=== PATIENT | male | born 1950 | race Caucasian/White ===

== ENCOUNTER 2020-01-07 17:20 | Emergency (ER) | payer MEDICARE, SELFPAY ==
[2020-01-07] VITALS (8 sets, daily range): BP systolic 81–113; BP diastolic 41–60; PULSE 75–98; RESP 14–18; TEMP 36.3; O2SAT 91–99
--- NOTE | ~2020-01-07 | CT_ITS ---
CORRECTED REPORT ORDER CHANGE 01/07/2020 [facility] [place]: CT thoracic wo con DATE: 01/07/2020 18:33 INDICATION: Back pain. Fall. TECHNIQUE: Computed tomography (CT) of the thoracic spine was performed without intravenous contrast. Automated exposure control and iterative reconstruction technique were employed. The dose-length product was 1495.31 mGy-cm. COMPARISON: None FINDINGS: There is 8 degrees dextrocurvature of thoracic spine. There is an acute T12 compression fracture with less than 1/5 loss of height. There is mildly decreased disc height at multiple levels in thoracic spine. There are endplate osteophytes at all levels including bridging osteophytes from T8 to T10 and at T5-T6. There is multilevel mild facet joint osteoarthritis. There is mild neural foraminal stenosis at many levels bilaterally. On the right, there is moderate neural foraminal stenosis at T10-T11. No central canal stenosis. IMPRESSION: 1. Acute T12 compression fracture. 2. Mild thoracic spondylosis. Reviewed, dictated and finalized at location A. MTDD
--- NOTE | ~2020-01-07 | CT_ITS ---
EXAMINATION:CT chest wo con DATE: 01/07/2020 18:33 INDICATION: Shortness of breath. Back pain. Fall. TECHNIQUE: Computed tomography (CT) of the chest was performed without intravenous contrast. Automate d exposure control and iterative reconstruction technique were employed. The dose-length product (DLP ) was 489.20 mGy-cm. COMPARISON: None. FINDINGS: There is mild emphysema. There is mild atelectasis bilaterally. There is pleural thickening on the left. No pleural effusion. The heart size is normal. There are coronary artery calcifications . Pericardial calcifications are noted. No pericardial effusion. There are gallstones in the gallblad jamison, which is normal in size. There is a 15 mm cyst in left kidney. There is a 14 mm mass in left kid jessica measuring soft tissue attenuation. There are bridging endplate osteophytes at multiple levels in the spine, consistent with diffuse idiopathic skeletal hyperostosis (DISH). There is a compression fr acture of T12 with less than 1/5 loss of height. IMPRESSION: 1. Acute T12 compression fracture. 2. 14 mm left kidney mass, which may be a hemorrhagic cyst or less likely a solid neoplasm. Abdomen C T or MRI without and with contrast is recommended. 3. Calcific pericarditis. Reviewed, dictated and finalized at location A. IMPRESSION: 1. Acute T12 compression fracture. 2. 14 mm left kidney mass, which may be a hemorrhagic cyst or less likely a noy id neoplasm. Abdomen CT or MRI without and with contrast is recommended. 3. Calcific pericarditis.
--- NOTE | ~2020-01-07 | CT_ITS ---
EXAMINATION: CT brain wo con DATE: 01/07/2020 18:32 INDICATION: Headache. TECHNIQUE: Computed tomography (CT) of the head was performed without intravenous contrast. The mA wa s adjusted according to patient size. Iterative reconstruction technique was employed. The dose-lengt h product was 605.33 mGy-cm. COMPARISON: None FINDINGS: There is prominent symmetric extra-axial fluid overlying the frontal lobes bilaterally, lik ewa secondary to brain volume loss. There is no acute infarction, acute hemorrhage, or abnormal intra cranial mass lesion. There are scattered areas of low attenuation in the cerebral white matter. The v entricles are normal in size. The paranasal sinuses are clear. There are trace bilateral mastoid effu sions. The orbits are normal. IMPRESSION: 1. Mild nonspecific cerebral white matter disease, which likely represents chronic small vessel ische geno disease. Reviewed, dictated and finalized at location A. IMPRESSION: 1. Mild nonspecific cerebral white matter disease, which likely represents site damage prevention technician anna marie small vessel ischemic disease.
--- NOTE | ~2020-01-07 | CT_ITS ---
EXAMINATION: CT cervical spine wo con DATE: 01/07/2020 18:32 INDICATION: Neck pain. Fall. TECHNIQUE: Computed tomography (CT) of the cervical spine was performed without intravenous contrast. Automated exposure control and iterative reconstruction technique were employed. The dose-length pro duct was 391.56 mGy-cm. COMPARISON: None FINDINGS: There is mild emphysema. There is 7 degrees levocurvature of cervical spine. Vertebral body heights are normal. Intervertebral disc heights are normal. The following disc levels are specifical ly discussed: C2-C3: There is mild right and moderate left uncovertebral joint osteoarthritis. There is moderate ri ght and severe left facet joint osteoarthritis. There is moderate left neural foraminal stenosis. The re is no central canal stenosis. C3-C4: There is mild bilateral uncovertebral joint osteoarthritis. There is severe bilateral facet dwayne int osteoarthritis. There is mild right neural foraminal stenosis. There is no central canal stenosis . C4-C5: There is mild bilateral uncovertebral joint osteoarthritis. There is severe right and moderate left facet joint osteoarthritis. There is mild bilateral neural foraminal stenosis. There is mild ce ntral canal stenosis. C5-C6: There is mild left uncovertebral joint osteoarthritis. There is severe bilateral facet joint o steoarthritis. There is mild bilateral neural foraminal stenosis. There is mild central canal stenosi s. C6-C7: There is mild bilateral uncovertebral joint osteoarthritis. There is severe bilateral facet dwyane int osteoarthritis. There is mild left neural foraminal stenosis. There is mild central canal stenosi s. C7-T1: There is no uncovertebral joint osteoarthritis. There is severe bilateral facet joint osteoart hritis. There is mild bilateral neural foraminal stenosis. There is no central canal stenosis. IMPRESSION: 1. No fracture. 2. Mild cervical spondylosis. Reviewed, dictated and finalized at location A.
[2020-01-07] MEDS: SODIUM CHLORIDE 0.9% IV 1,000 ML 999 ML IV CONT ×3 (17:30→19:29)
--- NOTE | 2020-01-07 17:43 | ECG_ITS ---
Measurements Intervals [place] Rate: 98 P: [place]: 0 QRS: -70 QRSD: 143 T: 85 QT: 424 QTc: 542 Interpretive Statements ATRIAL FLUTTER/TACHYCARDIA LEFT AXIS DEVIATION INTRAVENTRICULAR CONDUCTION DELAY ANTERIOR INFARCT, AGE INDETERMINATE HIGH LATERAL INFARCT, AGE INDETERMINATE BASELINE ARTIFACT- II, III, V4-V6 ABNORMAL ECG Electronically Signed On 01-08-2020 7:15:26 CDT by Ray Lott D.O.
--- NOTE | 2020-01-07 17:50 | ED.WEAKNESS ---
HPI - Weakness General Chief complaint: Weakness Stated complaint: AMB Source: patient and EMS Mode of arrival: EMS Limitations: no limitations History of Present Illness HPI Narrative: This is a 69-year-old male that lives at home alone that apparently had a fall while he was outside on his lawn to pay the lawn maintenance people fell on concrete and apparently he was down for [id number] unsure of loss of consciousness, there is some neck disc no headaches currently and has upper back pain with abrasions to his left knee a patient is initially hypotensive with a blood pressure of 81/41 afebrile, with O2 sats at 91%. The patient is currently not complaining of chest pain, no shortness of breath no nausea vomiting no focal deficits, no diarrhea constipation no abdominal pain. MD Complaint: generalized weakness, lack of energy and difficulty walking Onset (ago): day(s) Duration: constant Location: generalized Migration: none Severity: moderate Severity scale (1-10): 4 Relieving factors: rest Exacerbating factors: movement Context: depression Related Data Home Medications Medication Instructions Recorded Confirmed bupropion HCl 150 mg PO BID 01/07/20 01/07/20 fluoxetine 40 mg PO DAILY 01/07/20 01/07/20 fluticasone furoate-vilanterol 1 inh INHALATION DAILY 01/07/20 01/07/20 [Breo Ellipta] furosemide 40 mg PO DAILY 01/07/20 01/07/20 hydrochlorothiazide 25 mg PO DAILY 01/07/20 01/07/20 potassium chloride 40 meq PO DAILY 01/07/20 01/07/20 tadalafil 20 mg PO DAILY PRN 01/07/20 01/07/20 umeclidinium [Incruse Ellipta] 1 inh INHALATION DAILY 01/07/20 01/07/20 Allergies Allergy/AdvReac Type Severity Reaction Status Date / Time No Known Allergies Allergy Unverified 09/12/18 11:03 Review of Systems Review of Systems: All systems reviewed & are unremarkable except as noted in HPI and below PMFSH Past Medical History Medical History (Updated 01/07/20 @ 19:03 by Jerrell Rasheed MD) CAD (coronary artery disease) COPD (chronic obstructive pulmonary disease) Depression History of CVA (cerebrovascular accident) Social History Social History Gender identity (if verbalized by the patient): Male Exam Const: General: ill appearing Orientation/consciousness: patient oriented x3 Limitations: physical limitations HENMT: Head: normal to inspection Eyes: Conjunctivae: conjunctivae normal Pupils: Equal, round and reactive pupils present Neck: Neck: normal visual inspection, no lymphadenopathy and no meningeal signs Chest: Chest palpation & inspection: normal inspection of the chest Other: midline chest scar Resp: Effort & Inspection: normal respiratory effort Cardio: Rhythm: abnormal rhythm GI: GI Palp: Yes Soft to palpation Course Vital Signs Vital signs: Vital Signs Temperature 36.3 C L 01/07/20 17:35 Pulse Rate 98 01/07/20 17:35 Respiratory Rate 14 01/07/20 17:35 Blood Pressure 81/41 L 01/07/20 17:35 Pulse Oximetry 91 01/07/20 17:35 Temperature 36.3 C L 01/07/20 17:35 Pulse Rate 98 01/07/20 17:35 Respiratory Rate 14 01/07/20 17:35 Blood Pressure 81/41 L 01/07/20 17:35 Pulse Oximetry 91 01/07/20 17:35 MDM - Weakness ECG Data EKG #1: ECG completion date: 01/07/20 ECG completion time: 17:50 Prior ECG tracings: not available for review EKG Interpretation: tachycardia and atrial fibrillation Critical Care Time Critical Care Time Critical Care Time: No Discharge Plan Discharge Clinical Impression: Acute dehydration, Acute hypokalemia Sepsis Qualifiers: Sepsis type: sepsis due to unspecified organism Sepsis acute organ dysfunction status: with acute organ dysfunction Severe sepsis acute organ dysfunction type: acute renal failure Acute renal failure type: unspecified Severe sepsis shock status: without septic shock Qualified Code(s): A41.9 - Sepsis, unspecified organis
[2020-01-07 18:11] LABS: Hematocrit 38.1 % (37.0-46.0); Hemoglobin 14.3 g/dL (12.4-15.3); Mean Corpuscular HGB Conc 37.5 g/dL (32.0-36.0); Mean Corpuscular Hemoglobin 32.4 pg (27.0-31.0); Mean Corpuscular Volume 86.2 fL (78.0-102.0); Mean Platelet Volume 8.9 fl (8.7-11.0); Platelet Count Result 357 K/mm3 (150-420); Red Blood Count 4.42 M/mm3 (4.70-6.10); Red Cell Distribution Width 12.9 % (11.6-14.4)
[2020-01-07 18:17] LABS: White Blood Count 21.6 K/mm3 (4.8-10.8)
[2020-01-07 18:32] LABS: Lactic Acid 5.4 mmol/L (0.4-2.0)
[2020-01-07 18:35] LABS: Alanine Aminotransferase 40 U/L (16-63); Albumin Level 2.7 g/dL (3.4-5.0); Alkaline Phosphatase 127 U/L (46-116); Anion Gap 9.4 mmol/L (7-16); Aspartate Amino Transferase 74 U/L (15-37); Bilirubin,Total 4.4 mg/dL (0.00-1.00); Blood Urea Nitrogen 29 mg/dL (7-18); CRP 4.1 mg/dL (0.0-0.9); Calcium 8.3 mg/dL (8.5-10.1); Carbon Dioxide 38 mmol/L (21-32); Chloride 80 mmol/L (98-108); Creatine Kinase 475 U/L (39-308); Estimated CRCL calculation 26 ml/min; Estimated Glomerular Filt Rate 26; Glucose 121 mg/dL (70-99); Magnesium 2.6 mg/dL (1.8-2.4); Osmolality Calculated 268 mOsm/kg (285-295); Sodium 126 mmol/L (136-145); Thyroid Stimulating Hormone 1.49 uIU/mL (0.36-3.74); Total Protein 6.1 g/dL (6.4-8.2)
[2020-01-07 18:40] LABS: Ethanol < 3 mg/dL (0-6); Potassium 1.4 mmol/L (3.5-5.1); Troponin I 0.06 ng/mL (0.00-0.056)
[2020-01-07] MEDS: POTASSIUM BICARBONATE 25 MEQ TABEF 50 MEQ PO (19:00)
[2020-01-07] MEDS: KCL 20 MEQ/SW 100 ML 100 ML 50 MEQ IVPB (19:00)
--- NOTE | 2020-01-07 19:41 | PC.NURSE ---
[facility]. manager of warehouse contacted.
--- NOTE | 2020-01-07 19:42 | ECG_ITS ---
Measurements Intervals [place] Rate: 81 P: [place]: 0 QRS: -67 QRSD: 130 T: 107 QT: 441 QTc: 513 Interpretive Statements ATRIAL FLUTTER/TACHYCARDIA INTRAVENTRICULAR CONDUCTION DELAY LEFT ANTERIOR FASCICULAR BLOCK HIGH LATERAL INFARCT, AGE INDETERMINATE BASELINE ARTIFACT- I, II, III, AVR, AVL, AVF, V1-V6 ABNORMAL ECG Electronically Signed On 01-08-2020 7:17:43 CDT by Ray Lott D.O.
[2020-01-07 19:48] LABS: Add Urine Microscopic? YES; Appearance Urine Clear (Clear); Bilirubin Urine Negative (Negative); Blood Urine 1+ (Negative); Color Urine Yellow (Yellow); Glucose Urine UA Negative (Negative); Ketones Urine Negative (Negative); Leukocyte Esterase Ur Negative (Negative); Nitrate Urine Negative (Negative); Protein Urine Negative (Negative)
[2020-01-07 19:53] LABS: Bacteria Urine Trace /hpf; RBC Urine 0-2 /hpf (0-2); Squamous Epithelial Cell Urine Rare /hpf (Few); WBC Urine 0-3 /hpf (0-3)
[2020-01-07 19:56] LABS: Amphetamine Screen Urine Negative (Negative); Barbiturate Screen Urine Negative (Negative); Benzodiazepines Screen Urine Negative (Negative); Cannabinoid Screen Urine Negative (Negative); Cocaine Screen Urine Negative (Negative); Methadone Screen Urine Negative (Negative); Opiate Screen Urine Negative (Negative); Phencyclidine Screen Urine Negative (Negative)
--- NOTE | 2020-01-07 20:17 | PC.NURSE ---
Dr. Rasheed speaking with Dr. Bernardo, mental measurements teacher at [place]
--- NOTE | 2020-01-07 20:28 | PC.NURSE ---
Dr. Rasheed speaking with dr patten.
[2020-01-07 20:49] LABS: INR 1.1; Partial Thromboplastin Time 26.8 SEC (22.3-31.6); Prothrombin Time 11.1 Seconds (9.64-11.0)
--- NOTE | 2020-01-07 20:50 | PC.NURSE ---
Pt to go to room ICU 2 at [facility]. Report Given to MONIQUE Philip contacted for transfer.
--- NOTE | 2020-01-07 20:59 | PC.NURSE ---
Pt asked if there was anyone we could contact for him, pt declined.
[2020-01-07 21:03] LABS: Blood Urea Nitrogen 27 mg/dL (7-18); Calcium 7.4 mg/dL (8.5-10.1); Carbon Dioxide 38 mmol/L (21-32); Chloride 84 mmol/L (98-108); Estimated CRCL calculation 30 ml/min; Estimated Glomerular Filt Rate 30; Glucose 131 mg/dL (70-99); Osmolality Calculated 271 mOsm/kg (285-295); Sodium 127 mmol/L (136-145)
[2020-01-07 21:04] LABS: Troponin I 0.08 ng/mL (0.00-0.056)
== END 2020-01-07 21:30 | disposition short-term general hospital (02) ==
PROVIDERS: Emergency Provider Emergency Medicine
DX: A41.9 Sepsis, unspecified organism (principal); N17.9 Acute kidney failure, unspecified; E86.0 Dehydration; E87.6 Hypokalemia; Z79.899 Other long term (current) drug therapy
CPT/HCPCS: 36415; 70450; 71250; 72125; 72128; 72131; 80048; 80053; 80307; 81001; 82550; 83605; 83735; 84443; 84484; 85027; 85610; 85730; 86140; 87040; 93005; 96361; 96365; 96366; 96367; 96368; 99284; 99285; A9270; J2543; J3370; J3480; J7030

== ENCOUNTER 2020-01-07 21:55 | Inpatient (IN) | payer MEDICARE, SELFPAY ==
--- NOTE | ~2020-01-07 | XR_ITS ---
EXAMINATION: XR chest 1V portable DATE: 01/11/2020 13:58 INDICATION: Shortness of breath. TECHNIQUE: A single frontal view of the chest was obtained. COMPARISON: Chest single view 01/09/2020, chest CT 01/07/2020 FINDINGS: The lung volumes are small. There are airspace and interstitial opacities throughout the melissa ngs bilaterally. No pleural effusion or pneumothorax. The heart size is normal. Median sternotomy wir es are noted. IMPRESSION: 1. Small lung volumes with worsened diffuse lung disease, consistent with pulmonary edema versus pneu monia. Reviewed, dictated and finalized at location A. IMPRESSION: 1. Small lung volumes with worsened diffuse lung disease, consistent with pulmo nary edema versus pneumonia.
--- NOTE | ~2020-01-07 | CT_ITS ---
EXAMINATION: CT brain wo con DATE: 01/10/2020 20:09 INDICATION: Hallucinations. Fall. TECHNIQUE: Computed tomography (CT) of the head was performed without intravenous contrast. The mA wa s adjusted according to patient size. Iterative reconstruction technique was employed. The dose-lengt h product was 681.00 mGy-cm. COMPARISON: Head CT 01/07/2020 FINDINGS: There are extra-axial fluid collections overlying the right frontal, temporal, and parietal lobes with greatest thickness measuring 12 mm on the right and 15 mm on the left, worsened from 8 mm and 9 mm, respectively, consistent with hygromas. There is no acute intracranial hemorrhage, acute i schemic infarct, or abnormal mass lesion. There are scattered areas of low attenuation in the cerebra l white matter. The ventricles are normal in size. The orbits are normal. The paranasal sinuses are c lear. The orbits are normal. There are trace bilateral mastoid effusions. IMPRESSION: 1. Worsened bilateral subdural hygromas. 2. Stable mild nonspecific cerebral white matter disease, which likely represents chronic small vesse l ischemic disease. Reviewed, dictated and finalized at location A. IMPRESSION: 1. Worsened bilateral subdural hygromas. 2. Stable mild nonspecific cerebral white matter disease, which likely represen ts chronic small vessel ischemic disease.
--- NOTE | ~2020-01-07 | XR_ITS ---
EXAMINATION: XR barium swallow modified DATE: 01/12/2020 13:41 INDICATION: Dysphagia. TECHNIQUE: The patient was given barium-containing material of multiple consistencies to swallow by t sharyn speech pathologist while I performed fluoroscopy. Fluoroscopy exposure time was 1.5 minutes. The n umber of fluoroscopy images saved to the PACS was 1. Dose-area product was 1.839 Gy-cm^2. FINDINGS: There was decreased tongue coordination and elevation. There is laryngeal penetration and aspiration with decreased laryngeal elevation and decreased laryngeal closure. There is vallecular and piriform sinus residue with decreased tongue base retraction. IMPRESSION: 1. Laryngeal penetration or aspiration. 2. Please refer to the speech therapy report for recommendations. Reviewed, dictated and finalized at location A.
--- NOTE | ~2020-01-07 | US_ITS ---
EXAMINATION: US venous doppler [facility] DATE: 01/11/2020 15:32 INDICATION: Shortness of breath TECHNIQUE: Rodriguez scale images without and with compression and Doppler images of the bilateral lower e xtremity veins were obtained. COMPARISON: None FINDINGS: The right common femoral vein, profunda femoral vein, femoral vein, popliteal vein, peroneal trunk, p osterior tibial veins, and greater saphenous vein are patent. The left common femoral vein, profunda femoral vein, femoral vein, popliteal vein, peroneal trunk, po sterior tibial veins, and greater saphenous vein are patent. IMPRESSION: 1. Patent bilateral lower extremity veins. No evidence of deep venous thrombosis. Reviewed, dictated and finalized at location A. IMPRESSION: 1. Patent bilateral lower extremity veins. No evidence of deep venous thrombosi s.
--- NOTE | ~2020-01-07 | US_ITS ---
EXAMINATION: US right upper quadrant DATE: 01/08/2020 10:31 INDICATION: Abnormal liver function tests. TECHNIQUE: Multiple grayscale and Doppler ultrasound images of the abdomen were obtained. COMPARISON: Chest CT 01/07/2020 FINDINGS: The visualized portions of the head and body of the pancreas are normal. There is diffuse h epatic steatosis. There is normal flow in main portal vein. There are gallstones in the gallbladder, which is normal in size. No gallbladder wall thickening or sonographic Jensen sign. The common duct i s normal and measures 4 mm. IMPRESSION: 1. Cholelithiasis. No evidence of acute cholecystitis. 2. Diffuse hepatic steatosis. Reviewed, dictated and finalized at location E.
--- NOTE | ~2020-01-07 | US_ITS ---
EXAMINATION: US renal BI DATE: 01/09/2020 11:40 INDICATION: Acute kidney injury TECHNIQUE: Multiple grayscale and Doppler ultrasound images of the kidneys were obtained. COMPARISON: None. FINDINGS: The right kidney measures 11.4 x 5.8 x 5.5 cm. The left kidney measures 10.6 x 6.4 x 5.5 cm . The kidneys demonstrate normal parenchymal echogenicity. There is no hydronephrosis. The bladder is decompressed by Bloom catheter. IMPRESSION: 1. Normal kidneys without hydronephrosis. Reviewed, dictated and finalized at location A.
--- NOTE | ~2020-01-07 | XR_ITS ---
XR chest 1V portable 01/17/2020 05:39 Indication: Follow-up infiltrates. Dyspnea. Procedure: AP portable chest Comparison: Comparison to multiple prior studies sequentially, with oldest reviewed study dated 01/07. Findings: Status post median sternotomy. Persistent patchy bilateral airspace consolidation. No pleur al effusion or pneumothorax. Impression: 1: Persistent patchy bilateral airspace consolidation which appears to wax and wane over the last few studies which may represent a combination of edema and/or pneumonia. Reviewed, dictated and finalized at location A. Impression: 1: Persistent patchy bilateral airspace consolidation which appears to wax and wane over the last few studies which may represent a combination of edema and/o r pneumonia.
--- NOTE | ~2020-01-07 | XR_ITS ---
EXAMINATION: XR chest 1V portable DATE: 01/08/2020 08:19 INDICATION: Emphysema. Cough and weakness. TECHNIQUE: frontal view of the chest was obtained. COMPARISON: Chest CT dated 01/07/2020 FINDINGS: Streaky opacities at the left lung base which on prior CT appear to correspond to atelectasis. No pul monary edema, pleural effusion or pneumothorax. Cardiomegaly. Median sternotomy wires and mediastinal surgical clips are seen, likely from prior coronary artery bypass grafting. IMPRESSION: 1. Mild left basilar atelectasis. Reviewed, dictated and finalized at location A.
--- NOTE | ~2020-01-07 | XR_ITS ---
EXAMINATION: CT abdomen pelvis wo/w con, XR abdomen/kub 1V DATE: 01/13/2020 14:55 INDICATION: Left renal mass TECHNIQUE: 1. Computed tomography (CT) of the abdomen and pelvis was performed without and with 100 mL Omnipaque -350 intravenous contrast. Automated exposure control and iterative reconstruction technique were emp loyed. The dose-length product was 1939.81 mGy-cm. 2. Supine AP view of the abdomen and pelvis was obtained. COMPARISON: Chest CT dated 01/07/2020 FINDINGS: CT: Crazy paving pattern with groundglass opacity and smooth septal line thickening in the lingula, right middle and to lesser degree bilateral lower lobes. Heart size is normal. Pericardial calcifications with flattening of the lateral wall of the left ventricle suggesting possibility of constrictive rosenda carditis. Atherosclerotic coronary artery calcifications. No pericardial effusion. Evaluation of portions of the abdomen and pelvis is mild to moderately limited by motion artifact. Se veral gallstones in the dependent aspect of the normal-appearing gallbladder. Diffuse hepatic steatos is. Spleen, pancreas and bilateral adrenal glands are normal. Multiple bilateral low-attenuation none nhancing renal cysts as well as a 1.3 cm hyperdense nonenhancing proteinaceous/hemorrhagic cyst at th e upper pole of the left kidney. Retained oral contrast material in the proximal colon, distal small bowel as well as within a small duodenal diverticulum arising from the third portion of the duodenum. 6.3 x 4.2 x 3.9 cm heterogeneous attenuation mass in the dependent aspect of the bladder. No evident mass identified in the partially decompressed bladder on prior ultrasound this could represent clot. Prostatomegaly. Small fat-containing left inguinal hernia. No free intraperitoneal gas or fluid. No pathologically en larged abdominal or pelvic lymphadenopathy. There is calcified atherosclerosis of the aorta and many of the other arteries. Fusiform ectasia of the infrarenal aorta which measures up to 3.4 cm in umesh l diameter. Again seen is a now subacute T12 compression fracture with small amount of vacuum phenome na from the T11-T12 disc space extending along the horizontal fracture plane underlying the depressed superior endplate. Moderate to severe lumbar spondylosis. KUB: As previous noted there is retained oral contrast material within the distal small bowel, proximal co yaneth and a small duodenal diverticulum in the right upper quadrant. No dilated bowel to suggest obstru ction. Excreted contrast from the immediately prior CT seen in the bilateral renal collecting systems and ureters as well as in the bladder. Large lucent central filling defect within the bladder corres ponding to the mass identified on CT. IMPRESSION: 1. Bilateral renal cysts including a 1.3 cm nonenhancing hyperdense proteinaceous/hemorrhagic cyst at the upper pole of the left kidney corresponding to the lesion of concern on prior noncontrast CT. 2. 6.3 x 4.2 x 3.9 cm heterogeneous attenuation mass in the dependent aspect of the bladder which is without evident correlate on prior ultrasound suggesting clot. Recommend repeat bladder ultrasound fo r confirmation. 3. New crazy paving pattern at the lung bases most likely related to mild pulmonary edema with differ ential including pneumonia. 4. Dense pericardial calcification with flattening of the lateral wall of the left ventricle suggesti ng possible constrictive pericarditis. 5. Subacute T12 compression fracture. Reviewed, dictated and finalized at location A. IMPRESSION: 1. Bilateral renal cysts including a 1.3 cm nonenhancing hyperdense proteinaceo us/hemorrhagic cyst at the upper pole of the left kidney corresponding to the l esion of concern on prior noncontrast CT.
--- NOTE | ~2020-01-07 | XR_ITS ---
EXAMINATION: XR abdomen NG/feed tube insert EXAM DATE: 01/19/2020 14:34 INDICATION: Feeding tube placement. TECHNIQUE: Frontal projection(s) of the abdomen for interpretation. There is no prior study for venecia victor. FINDINGS: Feeding tube tip and side-port project over left upper quadrant, gastric cardia, adequate positioning. Sternotomy wires. Mild to moderate lumbar levoscoliosis. Moderate lumbar spondylosis. No nobstructive upper abdominal bowel gas pattern. Lung bases unremarkable. IMPRESSION: Feeding tube in position. Reviewed, dictated and finalized at location B. IMPRESSION: Feeding tube in position.
--- NOTE | ~2020-01-07 | MR_ITS ---
EXAMINATION: MR brain/brain stem wo con EXAM DATE: 01/20/2020 15:59 INDICATION: Altered mental status. Shock of uncertain origin. TECHNIQUE: Magnetic resonance imaging (MRI) of the brain/brain stem obtained without contrast. Sagitt al T1, axial diffusion, gradient echo (T2*), T1, T2, FLAIR sequences obtained. Correlation is made t o head CT from 01/19/2020. FINDINGS: There is small region of restricted diffusion in the fabi shaped in the midline, with linea r AP intersecting a linear transverse signal abnormality, sequence 5 image 7, likely region of acute ischemic change, small pontine infarction. Again there are moderate size chronic bilateral subdural hygromas, which appear well accommodated due to patient's cerebral atrophy. There is mild to moderate microangiopathy. There is no acute hemorrhage seen on the T2*, a hemosiderin sensitive sequence. No intraparenchymal brain mass. The ventricles are normal in size. There are no extra-axial collections. Flow voids are seen in the cerebral arteries on the T2-weighted sequences consistent with their expected patency. O rbits are unremarkable. Soft tissue is unremarkable. IMPRESSION: 1. T-shaped pontine signal abnormality most likely acute infarction. 2. Chronic moderate-sized subdural hygromas. 3. Mild to moderate microangiopathy. Reviewed, dictated and finalized at location A.
--- NOTE | ~2020-01-07 | CT_ITS ---
EXAMINATION: CT brain wo con DATE: 01/19/2020 08:36 INDICATION: Worsening ongoing confusion. TECHNIQUE: Computed tomography (CT) of the head was performed without intravenous contrast. Sagittal and coronal reconstructions were performed. The mA was adjusted according to patient size. Iterative reconstruction technique was employed. The dose-length product was 605.33 mGy-cm. COMPARISON: head CT dated 01/12/2020 FINDINGS: No significant interval change in extra-axial low-attenuation fluid collections consistent with hygro mas overlying the bilateral frontal, temporal and parietal lobes which continues to measure approxima tely 13 mm maximal thickness on the right and 14 mm on the left. No acute intracranial hemorrhage, ac denis infarction or abnormal mass lesion. There is mild scattered white matter hypoattenuation consiste nt with chronic small vessel ischemic disease. Ventricles are normal and symmetric. Basal cisterns re main patent. Trace bilateral mastoid effusions. The orbits and paranasal sinuses are normal. Intracra nial calcified cerebral atherosclerosis is noted. IMPRESSION: 1. No interval change in bilateral subdural hygromas. No acute intracranial process. 2. Mild scattered white matter hypoattenuation consistent with chronic small vessel ischemic disease. Reviewed, dictated and finalized at location A. IMPRESSION: 1. No interval change in bilateral subdural hygromas. No acute intracranial pro cess. 2. Mild scattered white matter hypoattenuation consistent with chronic small ve ssel ischemic disease.
--- NOTE | ~2020-01-07 | XR_ITS ---
EXAMINATION: XR chest 1V portable INDICATION: Shortness of breath TECHNIQUE: Portable AP chest at 1218 hours COMPARISON: 01/11/2020 FINDINGS: Diffuse airspace opacities are present with slight improvement on the right. No pleural eff usion or pneumothorax is identified. The heart size is normal. Median sternotomy wires are consistent with prior cardiac surgery. IMPRESSION: 1. Diffuse lung disease with slight improvement on the right, consistent with pulmonary edema versus pneumonia. Reviewed, dictated and finalized at location A. IMPRESSION: 1. Diffuse lung disease with slight improvement on the right, consistent with p ulmonary edema versus pneumonia.
--- NOTE | ~2020-01-07 | XR_ITS ---
EXAMINATION: XR chest 1V portable INDICATION: Shortness of breath and weakness TECHNIQUE: Portable AP chest at 1226 hours COMPARISON: 01/17/2020 FINDINGS: The nasogastric tube is in the stomach. Lung volumes are low. Patchy bilateral airspace opa cities persist but have improved. There is no pleural effusion or pneumothorax. The cardiomediastinal silhouette is normal. Wire sternal sutures are consistent with prior cardiac surgery. IMPRESSION: 1. Persistent but improved airspace opacities, consistent with resolving pneumonia versus pulmonary e don. Reviewed, dictated and finalized at location A. IMPRESSION: 1. Persistent but improved airspace opacities, consistent with resolving pneumo isabell versus pulmonary edema.
--- NOTE | ~2020-01-07 | XR_ITS ---
EXAMINATION: XR chest 1V portable DATE: 01/09/2020 18:27 INDICATION: Shortness of breath. TECHNIQUE: A single frontal view of the chest was obtained. COMPARISON: Chest single view 01/08/2020, chest CT 01/07/2020 FINDINGS: The lung volumes are small. There is mild atelectasis at the lung bases. There are hazy air space opacities in all lung zones with an upper lung predominance. No pleural effusion or pneumothora x. The heart size is normal. Median sternotomy wires are noted. IMPRESSION: 1. Worsened diffuse lung disease, consistent with pulmonary edema versus pneumonia. 2. Mild atelectasis at the lung bases. Reviewed, dictated and finalized at location A. IMPRESSION: 1. Worsened diffuse lung disease, consistent with pulmonary edema versus pneumo isabell. 2. Mild atelectasis at the lung bases.
--- NOTE | ~2020-01-07 | XR_ITS ---
EXAMINATION: XR femur RT min 2V, XR tibia fibula RT 2V, XR forearm RT 2V, XR humerus RT DATE: 01/20/2020 15:30 INDICATION: Assess cervical reported prior shrapnel at the right upper and lower limbs prior to MRI. TECHNIQUE: 1. AP and lateral views of the right femur were obtained on overlapping proximal and distal radiograp hs. 2. AP and lateral views of the right tibia and fibula were obtained. 3. Internal and axillary rotated views of the right humerus were obtained. 4. AP and lateral views of the right forearm were obtained. COMPARISON: None FINDINGS: The right foot and digits of the right hand are excluded from the field of imaging. No radiopaque for eign bodies identified in the right upper or lower limbs. Bone alignment is normal throughout. No fra ctures. Suggestion of an old fracture deformity at the base of the right fourth proximal phalanx. No acute fractures identified. Polyarticular osteoarthritis moderate at the right acromioclavicular join t and mild at multiple additional joints throughout the right arm and leg. Prominent soft tissue swel ling and subcutaneous edema centered at the right elbow extending from the mid upper arm to the midfo rearm. Atherosclerotic calcifications along the femoral artery extending into the arteries at the rig ht calf. IMPRESSION: 1. No radiopaque foreign bodies in the visualized right upper lower limbs. Reviewed, dictated and finalized at location A. IMPRESSION: 1. No radiopaque foreign bodies in the visualized right upper lower limbs. IMPRESSION: 1. No radiopaque foreign bodies in the visualized right upper lower limbs. IMPRESSION: 1. No radiopaque foreign bodies in the visualized right upper lower limbs.
--- NOTE | ~2020-01-07 | CT_ITS ---
EXAMINATION: CT brain wo con DATE: 01/12/2020 16:34 INDICATION: Enlarging hygroma is TECHNIQUE: Computed tomography (CT) of the head was performed without intravenous contrast. Sagittal and coronal reconstructions were performed. The mA was adjusted according to patient size. Iterative reconstruction technique was employed. The dose-length product was 1210.67 mGy-cm. COMPARISON: head CT dated 01/10/2020 FINDINGS: No significant interval change in extra-axial low-attenuation fluid collections consistent with hygro mas overlying the bilateral frontal, temporal and parietal lobes which continues to measure approxima tely 12-13 mm maximal thickness on the right and 14-15 mm on the left. No acute intracranial hemorrha ge, acute infarction or abnormal mass lesion. There is mild scattered white matter hypoattenuation co nsistent with chronic small vessel ischemic disease. Ventricles are normal and symmetric. Trace bilat eral mastoid effusions. The orbits and paranasal sinuses are normal. Intracranial calcified cerebral atherosclerosis is noted. IMPRESSION: 1. No interval change in bilateral subdural hygromas. No acute intracranial process. 2. Mild scattered white matter hypoattenuation consistent with chronic small vessel ischemic disease. Reviewed, dictated and finalized at location A. IMPRESSION: 1. No interval change in bilateral subdural hygromas. No acute intracranial pro cess. 2. Mild scattered white matter hypoattenuation consistent with chronic small ve ssel ischemic disease.
--- NOTE | 2020-01-07 21:20 | PM.IMHP ---
H&P: HPI History of Present Illness Chief complaint: Fall unable to get up Narrative: Date and time of patient contact: 01/07/2020 at 10:10 p.m. Daniel Lopez is a 69 year old male with a past medical history of CVA, hypertension, and COPD who presented to [facility] via EMS after having a fall. The patient was walking out to pay his lawn care provider when he fell. He was unable to get up. When the patient arrived at [facility] he was hypotensive with a blood pressure of 81/41. He also had a white count of 21,000 and profound hypokalemia. He received greater than 30 mL/kg in fluid bolus at the outside ER with improvement in blood pressures up to 103/59. He reports that he has been feeling lightheaded with standing up for at least a couple of weeks. He denies any visual changes, headache, or confusion. He has had several falls and has multiple bruises in multiple stages of healing. He has hit his head at least once with his multiple falls and has multiple shallow abrasions to his forehead. He denies any chest pain, shortness of breath, cough, congestion, fevers or chills. He is noted to be wheezing and he states that he is smoking a pack of cigarettes per day. He denies any recent ill contacts. He denies any nausea, vomiting or diarrhea. He denies any dysuria and only complains that he wants the Bloom catheter removed. He states that he had been having some lower extremity edema but it looks like he was started on Lasix back in October and he has not had any edema since that time. He was started on potassium as well. He states that he has been chewing his potassium tablets because they are too big to swallow. The physician from [facility] stated that the patient had multiple full bottles of potassium supplements that were full and it did not seem that the patient had been taking them. The patient denies any chest pain or palpitations. His EKG at the outside facility did demonstrate evidence of septal and lateral myocardial infarction and QT prolongation with a QTC of 542 and 513 on sequential EKGs. His EKG also demonstrated atrial fibrillation which was a new finding. The patient is aware that he is at [facility] and he is quite upset that he was transferred here. He stated that he requested to go to [facility] in [place] where he sees his primary care provider. The patient's ex- had called our facility requesting to talk to the patient and demanding to know how the patient ended up at our facility because she did not ?give permission for him to be transferred.? However, when nursing staff asked the patient if he wanted to talk to his ex- he was adamant that he did not want to talk to her and that she was not to have any medical information. He stated he never gave permission for the outside facility to share his medical information with his ex-. He evidently his shortly after his stroke in August of 2018. They were only for less than a year prior to separation/divorce. He states that his nephew Perry Aviles is to be his surrogate decision maker. He stated he was okay with his niece also receiving updates on his medical condition. The patient does not know the phone numbers for his niece or nephew. Review of Systems Review of Systems: Narrative: 12 systems were reviewed with pertinent positives and negatives per HPI. Except as documented in the HPI, all other systems were reviewed and are negative. The patient is only a fair historian and states that he does not ?keep track of those things? when he is asked about past medical history and review of systems. [facility] Past Medical History Medical History (Updated 01/08/20 @ 00:00 by Background Daemon) Alcoholism /alcohol abuse With prior H&P documenting 10 beers a day. CAD (coronary artery disease) COPD (chronic obstructive pulmonary disease) Depression Diastolic heart failure Essential hypertension H
[2020-01-07 22:04] VITALS: PULSE 73
[2020-01-07 22:14] VITALS: BMI 25.8
[2020-01-07] MEDS: POTASSIUM CHLORIDE 20 MEQ PACKET (FOR LIQUID) 80 MEQ PO (22:43)
[2020-01-07] MEDS: THIAMINE HCL 200 MG/2 ML VIAL 100 MG IV PUSH (22:47)
[2020-01-07] MEDS: SODIUM CHLORIDE 0.9% IV 1,000 ML 150 ML IV CONT (22:49)
[2020-01-07] MEDS: ACETAMINOPHEN 325 MG TABLET 650 MG PO (22:56)
[2020-01-08] VITALS (19 sets, daily range): BP systolic 83–113; BP diastolic 54–75; PULSE 65–91; RESP 14–23; TEMP 35.6–36.7; O2SAT 94–98
[2020-01-08 00:22] LABS: D Dimer 8.15 ug/mL (<0.48)
[2020-01-08 00:35] LABS: Lactic Acid Reflex 1.5 mmol/L (0.7-2.1)
[2020-01-08 00:40] LABS: Lactate Dehydrogenase 776 U/L (313-618)
--- NOTE | 2020-01-08 00:58 | ADMIMU ---
This patient, Daniel Lopez, was admitted to ICU status, and placed in Intensive Care Unit-2 at 2150 01/07/20. Patient/family oriented to hospital policies and general routines including ID bracelet, bed and alarms, visiting hours, pain management, procedures, bathroom and other care routines, personal items, smoking policy, room service/diet, and visiting hours. Valuables list has been completed. Information on how to activate the Rapid Response Team has been discussed. Patient/Family are encouraged to report perceived risks to care and to ask questions if they do not understand what they are told or what they should do.
--- NOTE | 2020-01-08 00:58 | PC.NURSE ---
Patient does not want Brittny to have information. He requests his nephew be his contact manager. Renzo Wilde called for phone number of nephew and message left to please call back with number. Renzo Wilde's number is [phone].
[2020-01-08 01:01] LABS: Ethanol < 10 mg/dL (<10)
[2020-01-08 01:33] LABS: Hepatitis B Surface Antigen Negative (Negative)
[2020-01-08 01:38] LABS: HAV RESULT Negative (Negative); Hepatitis B Core IgM Result Negative (Negative)
[2020-01-08 01:50] LABS: Hepatitis C Virus Antibody Negative (Negative)
--- NOTE | 2020-01-08 03:01 | ECG_ITS ---
Measurements Intervals [place] Rate: 66 P: 21 CA: 294 QRS: -64 QRSD: 135 T: 124 QT: 413 QTc: 436 Interpretive Statements ATRIAL FLUTTER/TACHYCARDIA INTRAVENTRICULAR CONDUCTION DELAY LEFT ANTERIOR FASCICULAR BLOCK HIGH LATERAL INFARCT, AGE INDETERMINATE BORDERLINE T WAVE ABNORMALITY- ANTEROLATERAL LEADS BASELINE ARTIFACT- I, II, III, AVR, AVL, AVF, V1-V6 ABNORMAL ECG Electronically Signed On 01-08-2020 10:20:43 CDT by Ray Lott D.O.
[2020-01-08 04:05] LABS: Basophils Percent Auto 0.2 % (0.2-1.2); Eosinophils Absolute Auto 0.1 K/mm3 (0-0.3); Eosinophils Percent Auto 0.4 % (0-4.4); Hematocrit 35.5 % (42.0-52.0); Immature Granulocyte Absolute 0.13 K/mm3 (0.00-0.031); Immature Granulocyte Percent A 0.7 % (0-0.5); Lymphocytes Absolute Auto 1.84 K/mm3 (0.9-3.2); Lymphocytes Percent Auto 10.5 % (18.3-44.2); Mean Corpuscular HGB Conc 36.6 g/dl (32-36); Mean Corpuscular Hemoglobin 32.7 pg (26-34); Mean Corpuscular Volume 89.2 fl (80-100); Mean Platelet Volume 9.1 fl (7.4-10.4); Monocytes Absolute Auto 1.6 K/mm3 (0.1-0.6); Monocytes Percent Auto 9.2 % (2.6-8.5); Neutrophils Absolute Auto 13.9 K/mm3 (1.3-6.7); Platelet Count Result 296 k/mm3 (150-375); Red Blood Count 3.98 M/mm3 (4.6-6.20); Red Cell Distribution Width 13.2 % (11.5-14.5); White Blood Count 17.6 K/mm3 (4.5-10.0)
[2020-01-08 04:16] LABS: Creatine Kinase 300 U/L (55-170)
[2020-01-08 04:20] LABS: Alanine Aminotransferase 30 U/L (4-50); Albumin Level 2.7 g/dL (3.5-5.1); Alkaline Phosphatase 107 U/L (38-126); Aspartate Amino Transferase 65 U/L (17-59); Bilirubin,Total 3.9 mg/dL (0.2-1.3); Blood Urea Nitrogen 28 mg/dL (9-20); Calcium 7.4 mg/dL (8.4-10.2); Carbon Dioxide 39 mmol/L (22-30); Chloride 82 mmol/L (98-107); Estimated CRCL calculation 37 ml/min; Estimated Glomerular Filt Rate 40; Glucose 96 mg/dL (75-110); Magnesium 2.5 mg/dL (1.6-2.3); Phosphorus 3.4 mg/dL (2.5-4.5); Potassium 2.3 mmol/L (3.4-5.0); Sodium 125 mmol/L (137-145)
[2020-01-08] MEDS: POTASSIUM CHLORIDE 20 MEQ PACKET (FOR LIQUID) 80 MEQ PO (05:36)
[2020-01-08] MEDS: ACETAMINOPHEN 325 MG TABLET 650 MG PO ×3 (05:39→20:05)
--- NOTE | 2020-01-08 06:10 | PC.NURSE ---
Renzo Wilde returned call and she has POA of patient. She will contact case management this AM for email paperwork. Updated per pt care.
[2020-01-08] MEDS: SODIUM CHLORIDE 0.9% IV 500 ML IV CONT (06:27)
[2020-01-08] MEDS: SODIUM CHLORIDE 0.9% IV 1,000 ML 150 ML IV CONT ×2 (07:39→15:39)
[2020-01-08] MEDS: ALBUTEROL SULFATE (*SP) AEROSOL 1 PUFF 6 PUFF INHALATION ×4 (08:38→19:28)
--- NOTE | 2020-01-08 09:25 | WPDCNINT ---
Assessment and Plan Assessment and plan (1) Hypotension: Qualifiers: Hypotension type: unspecified hypotension type Qualified Code(s): I95.9 - Hypotension, unspecified Code(s): I95.9 - Hypotension, unspecified Status: Acute Assessment and Plan: Hypotension likely related to hypovolemia from over-diuresis, dehydration -patient be given additional IV fluids as chest x-ray is clear - patient was on the floor for 45 minutes with no loss of consciousness before he could get up. Could have aspirated, will start sentences WBC count is 17,000. -UA is clean -will continue telemetry monitoring (2) Hypokalemia: Code(s): E87.6 - Hypokalemia Status: Acute Assessment and Plan: Hypokalemia with potassium of 1.4 admission -patient has been aggressively -last potassium of 2.3 this morning, has been given additional potassium supplements, will recheck BMP later this morning (3) Elevated bilirubin: Code(s): R17 - Unspecified jaundice Status: Acute Assessment and Plan: Hepatitis panel is negative -patient has a history of alcoholism -will check right upper quadrant ultrasound (4) COPD (chronic obstructive pulmonary disease): Code(s): J44.9 - Chronic obstructive pulmonary disease, unspecified Status: Acute Assessment and Plan: Patient history of COPD, currently wheezing -continue bronchodilators -will give a dose of Solu-Medrol (5) CORA (acute kidney injury): Code(s): N17.9 - Acute kidney failure, unspecified Status: Acute Assessment and Plan: Patient with acute kidney injury likely related to diuresis, some rhabdomyolysis as he was on the floor for 45+ minutes after fall -patient continues to be hydrated, will give additional IV fluid bolus this morning -creatinine trending down -continue to monitor renal function, electrolytes and urine output (6) Suspected 2019 novel coronavirus infection: Code(s): Z20.828 - Contact with and (suspected) exposure to other viral communicable diseases Status: Acute Assessment and Plan: SARS-CoV-2 PCR obtained and pending -patient placed on droplet, airborne and contact isolation -inflammatory markers elevated, continue to monitor (7) Hyponatremia: Code(s): E87.1 - Hypo-osmolality and hyponatremia Status: Acute Assessment and Plan: Likely related to diuresis (HCTZ and Lasix use) -patient on normal saline maintenance IV fluids -continue to monitor sodium levels (8) DVT prophylaxis: Code(s): Z29.9 - Encounter for prophylactic measures, unspecified Status: Acute Assessment and Plan: Subcu Lovenox Additional Plan Discussed with patient updated with his condition and plan of care. Code status: Full code Critical care time spent: 43 minutes Due to a high probability of clinically significant, life threatening deterioration, the patient required my highest level of preparedness to intervene emergently and I personally spent this critical care time directly and personally managing the patient. This critical care time included obtaining a history; examining the patient; pulse oximetry; ordering and review of studies; arranging urgent treatment with development of a management plan; evaluation of patient's response to treatment; frequent reassessment; and discussions with other providers. It was exclusive of separately billable procedures and treating other patients and teaching time. Please see Assessment and Plan section and the rest of the note for further information on patient assessment and treatment Mixer Operator Tablets Consult Note Consult date: 01/08/20 Time Seen: 06:57 Reason for consult: Fall, hypotension, rule out COVID-19 HPI: Daniel Lopez is a 69 year old male past medical history of CVA, essential hypertension, COPD, tobacco abuse, recovering alcoholic Presented To [facility] in [facility] after having a fall. According the p
[2020-01-08 09:44] LABS: Blood Urea Nitrogen 25 mg/dL (9-20); Carbon Dioxide 33 mmol/L (22-30); Chloride 89 mmol/L (98-107); Estimated CRCL calculation 45 ml/min; Estimated Glomerular Filt Rate 50; Glucose 117 mg/dL (75-110); Potassium 2.5 mmol/L (3.4-5.0); Sodium 126 mmol/L (137-145)
[2020-01-08] MEDS: LACTATED RINGERS 500 ML 999 ML IV CONT (10:00)
[2020-01-08] MEDS: ENOXAPARIN 30 MG/0.3 ML SYRINGE SUB-Q (10:17)
[2020-01-08] MEDS: methylPREDNISolone SOD SUCC 125 MG VIAL IV PUSH (11:22)
--- NOTE | 2020-01-08 11:50 | PM.IMPN ---
Progress Note: A&P Assessment and Plan (1) Septic shock: Code(s): A41.9 - Sepsis, unspecified organism; R65.21 - Severe sepsis with septic shock Status: Acute Assessment and Plan: Patient with either septic shock versus hypovolemia. Lactic acid 5.4 but better today. Patient responded to IV fluid boluses. BP still soft but better and renal function improved to suggest that he is hypovolemic. Agree with Zosyn for now until culture results are know. No other clear source of infection. (2) Acute renal failure: Qualifiers: Acute renal failure type: unspecified Qualified Code(s): N17.9 - Acute kidney failure, unspecified Code(s): N17.9 - Acute kidney failure, unspecified Status: Inactive Assessment and Plan: Cr 2.5 that has improved to 1.4 today. Cr normal one year ago. Good UOP. Continue hydration. Avoid nephrotoxic medications. (3) Acute hypokalemia: Code(s): E87.6 - Hypokalemia Status: Inactive Assessment and Plan: Potassium 1.4 on admission and has received IV and oral replacement. He remains in the 2 range but slowly improving. Mag level high. Probably related to Lasix and HCTZ as well as noncompliance with treatment. The patient was evidently prescribed potassium chloride supplements as outpatient but did not take them as the pills were too large. Contineu to monitor and replace as needed. (4) Hyponatremia: Code(s): E87.1 - Hypo-osmolality and hyponatremia Status: Acute Assessment and Plan: Na 126 on admission and has not much changed despite rehydration. Initally felt related to dehydration from HCTZ and Lasix. TSH normal. No cortisol level so will add (though less likely). Will check urine studies. (5) T12 compression fracture: Code(s): S22.080A - Wedge compression fracture of T11-T12 vertebra, initial encounter for closed fracture Status: Acute Assessment and Plan: Imaging showing an acute T12 compression fracture. Probably related to one of his many falls. Will need back brace, PT/OT. (6) Elevated bilirubin: Code(s): R17 - Unspecified jaundice Status: Acute Assessment and Plan: TB 4.4 but better on recheck at 3.9 today. RUQ US showing hepatic steatosis and cholelithiasis. Hepatitis panel negative. Will repeat Bili and fractionate. Doubt cholangitis given no dilated ducts or stones by US or CT scan. (7) COPD (chronic obstructive pulmonary disease): Code(s): J44.9 - Chronic obstructive pulmonary disease, unspecified Status: Acute Assessment and Plan: Warren continues to smoke. He uses Breo and Incruse at home. Continue Symbicort and Albuterol here. (8) Suspected 2019 novel coronavirus infection: Code(s): Z20.828 - Contact with and (suspected) exposure to other viral communicable diseases Status: Acute Assessment and Plan: COVID negative. Discussed with junior net developer. His markers and clincial picture consistent with COVID so will repeat the COVID test. (9) Falls frequently: Code(s): R29.6 - Repeated falls Status: Acute Assessment and Plan: Etiology unclear but multiple bruising noted to indicate multiple traumatic falls. PT/OT when able (10) Alcoholism /alcohol abuse: Code(s): F10.20 - Alcohol dependence, uncomplicated Status: Acute Assessment and Plan: The patient quit drinking alcohol about a year ago. Continue CIWA protocol. Will start Thiamine and Folate. (11) Tobacco abuse: Code(s): Z72.0 - Tobacco use Status: Acute Assessment and Plan: Will discuss benefits of smoking cessation at a later date. (12) Renal mass: Code(s): N28.89 - Other specified disorders of kidney and ureter Status: Acute Assessment and Plan: CT scan showing 14 mm left kidney mass, which may be a hemorrhagic cyst or less likely a solid
[2020-01-08 11:58] LABS: Blood Urea Nitrogen 24 mg/dL (9-20); Calcium 7.4 mg/dL (8.4-10.2); Carbon Dioxide 36 mmol/L (22-30); Chloride 88 mmol/L (98-107); Estimated CRCL calculation 45 ml/min; Estimated Glomerular Filt Rate 50; Glucose 115 mg/dL (75-110); Potassium 2.3 mmol/L (3.4-5.0); Sodium 127 mmol/L (137-145)
[2020-01-08 13:03] LABS: SARS-CoV-2 RNA PCR Negative
[2020-01-08] MEDS: MAGNESIUM SULF 2 GM/WATER 50ML 2 GM/50 ML BAG IVPB (13:08)
[2020-01-08] MEDS: POTASSIUM CHLORIDE 20 MEQ TABLET 40 MEQ PO ×2 (13:09→19:54)
[2020-01-08] MEDS: THIAMINE HCL 200 MG/2 ML VIAL 100 MG IV PUSH (13:25)
[2020-01-08] MEDS: FOLIC ACID 1 MG/0.2 ML INJ IV PUSH (13:25)
[2020-01-08] MEDS: hetaSTARCH 6%/NACL 500 ML 250 ML IV CONT (15:39)
[2020-01-08 18:50] LABS: Blood Urea Nitrogen 24 mg/dL (9-20); Calcium 6.9 mg/dL (8.4-10.2); Carbon Dioxide 28 mmol/L (22-30); Chloride 89 mmol/L (98-107); Estimated CRCL calculation 42 ml/min; Estimated Glomerular Filt Rate 46; Glucose 276 mg/dL (75-110); Magnesium 2.5 mg/dL (1.6-2.3); Phosphorus 1.3 mg/dL (2.5-4.5); Potassium 2.7 mmol/L (3.4-5.0); Sodium 125 mmol/L (137-145)
[2020-01-08 19:02] LABS: Troponin I 0.047 ng/mL (0.000-0.034)
[2020-01-08] MEDS: POTASSIUM CHLORIDE 20 MEQ PACKET (FOR LIQUID) 40 MEQ PO (22:14)
[2020-01-08] MEDS: POTASSIUM PHOS,M-BASIC-D-BASIC 20 MMOL in SODIUM CHLORIDE 0.9% IV 250 ML 64 MMOL IVPB (22:14)
[2020-01-08 23:45] LABS: Creatinine Urine 45.8 mg/dL
[2020-01-09] VITALS (25 sets, daily range): BP systolic 92–126; BP diastolic 52–86; PULSE 70–111; RESP 15–29; TEMP 35.9–36.8; O2SAT 86–97
--- NOTE | 2020-01-09 | ECHO_ITS ---
Patient Info Name: Daniel Lopez Age: 69 years : 1950 Gender: Male Ht: 70 in Wt: 182 lbs BSA: 2.03 m2 HR: 72 bpm BP: 119 / 72 mmHg Heart Rhythm: Indeterminant Technical Quality: Good Exam Date: 01/09/2020 2:06 PM Exam Location: [facility] Room: ICU 2 Patient Status: Inpatient Admit Date: 01/07/2020 Staff Ordering Physician: Zain Mejia MD Crossing Supervisor: Brianne Valentine RDCS Attending Provider: Zain Mejia MD Exam Type: CA echo doppler color flow Study Info Indications - aflutter chf Complete two-dimensional, color flow and Doppler transthoracic echocardiogram is performed. Summary 1. Left ventricular chamber dimension is normal. 2. Left ventricular systolic function is normal, estimated at 65-70%. 3. There is mildly increased left ventricular wall thickness. 4. Left ventricular septal wall motion is normal. 5. The left ventricular diastolic function is abnormal. 6. Left atrial chamber dimension is mildly enlarged. 7. Right atrial chamber dimension is mildly enlarged. 8. There is mild mitral valve regurgitation. 9. There is mild tricuspid valve regurgitation. 10. Mild pulmonary hypertension, estimated pulmonary arterial systolic pressure is 36 mmHg. Left Ventricle Left ventricular chamber dimension is normal. Left ventricular systolic function is normal, estimated at 65-70%. There is mildly increased left ventricular wall thickness. Left ventricular septal wall motion is normal. The left ventricular diastolic function is abnormal. Right Ventricle Right ventricular chamber dimension is normal. Right ventricular systolic function is normal. Left Atria Left atrial chamber dimension is mildly enlarged. Right Atria Right atrial chamber dimension is mildly enlarged. Atrial Septum Intact interatrial septum visualized by color flow imaging. Aortic Valve The aortic valve is trileaflet. There is mild aortic valve sclerosis. There is no aortic valve stenosis. There is trace aortic valve regurgitation. Pulmonic Valve The pulmonic valve is normal. There is no pulmonic valve stenosis. There is trace pulmonic regurgitation. Mitral Valve The mitral valve has normal leaflets. There is no mitral valve stenosis. There is mild mitral valve regurgitation. Tricuspid Valve The tricuspid valve leaflets are normal. There is no significant tricuspid valve stenosis. There is mild tricuspid valve regurgitation. Mild pulmonary hypertension, estimated pulmonary arterial systolic pressure is 36 mmHg. Pericardium/Pleural The pericardium appears normal. There is no pericardial effusion. Inferior Vena Cava Normal inferior vena cava with >50% collapse upon inspiration consistent with normal right atrial pressure, 10 mmHg. Aorta The aortic root size at the sinus of Valsalva is normal. The prox ascending aorta size is normal. Left Ventricular Outflow Tract Name Value Normal LVOT 2D LVOT Diameter 2.1 cm LVOT Doppler LVOT Peak Gradient 6 mmHg LVOT Mean Gradient 4 mmHg LVOT VTI
[2020-01-09 00:01] LABS: Sodium Urine Random 13 meq/L
[2020-01-09] MEDS: CALCIUM CARBONATE (TUMS) 500 MG (200 MG ELEMENTAL) PO (01:04)
[2020-01-09] MEDS: SODIUM CHLORIDE 0.9% IV 1,000 ML 150 ML IV CONT (04:43)
[2020-01-09 05:19] LABS: Basophils Percent Auto 0.1 % (0.2-1.2); Hematocrit 31.2 % (42.0-52.0); Hemoglobin 11.1 g/dL (14.0-18.0); Immature Granulocyte Absolute 0.29 K/mm3 (0.00-0.031); Immature Granulocyte Percent A 1.1 % (0-0.5); Immature Platelet Fraction Pct 1.6 % (0.9-11.2); Lymphocytes Absolute Auto 0.61 K/mm3 (0.9-3.2); Lymphocytes Percent Auto 2.3 % (18.3-44.2); Mean Corpuscular HGB Conc 35.6 g/dl (32-36); Mean Corpuscular Hemoglobin 32.7 pg (26-34); Mean Platelet Volume 10.5 fl (7.4-10.4); Monocytes Absolute Auto 1.2 K/mm3 (0.1-0.6); Monocytes Percent Auto 4.6 % (2.6-8.5); Neutrophils Absolute Auto 24.6 K/mm3 (1.3-6.7); Neutrophils Percent Auto 91.9 % (45.5-73.1); Platelet Count Result 243 k/mm3 (150-375); Red Blood Count 3.39 M/mm3 (4.6-6.20); Red Cell Distribution Width 13.5 % (11.5-14.5); White Blood Count 26.8 K/mm3 (4.5-10.0)
[2020-01-09 05:25] LABS: Lactic Acid 1.6 mmol/L (0.7-2.1)
[2020-01-09 05:41] LABS: Alanine Aminotransferase 25 U/L (4-50); Albumin Level 2.3 g/dL (3.5-5.1); Alkaline Phosphatase 108 U/L (38-126); Aspartate Amino Transferase 46 U/L (17-59); Bilirubin,Total 1.7 mg/dL (0.2-1.3); Blood Urea Nitrogen 24 mg/dL (9-20); Calcium 7.1 mg/dL (8.4-10.2); Carbon Dioxide 26 mmol/L (22-30); Chloride 95 mmol/L (98-107); Estimated CRCL calculation 48 ml/min; Estimated Glomerular Filt Rate 54; Glucose 132 mg/dL (75-110); Phosphorus 2.3 mg/dL (2.5-4.5); Potassium 3.4 mmol/L (3.4-5.0); Sodium 127 mmol/L (137-145)
[2020-01-09 05:59] LABS: Cortisol Random 8.01 ug/dL
[2020-01-09 06:12] LABS: Thyroid Stimulating Hormone 0.628 uIU/mL (0.465-4.680)
[2020-01-09] MEDS: ALBUTEROL SULFATE (*SP) AEROSOL 1 PUFF 6 PUFF INHALATION ×4 (07:58→20:19)
--- NOTE | 2020-01-09 08:16 | PM.IMPN ---
Progress Note: A&P Assessment and Plan (1) Septic shock: Code(s): A41.9 - Sepsis, unspecified organism; R65.21 - Severe sepsis with septic shock Status: Acute Assessment and Plan: Patient with either septic shock versus hypovolemia. Lactic acid 5.4 but normal today. Patient responded to IV fluid boluses. BP soft overnight at times but better overall. Renal function improving to suggest that he is hypovolemic. Will continue with Zosyn for now. Repeat COVID pending. No other clear source of infection. (2) Acute renal failure: Qualifiers: Acute renal failure type: unspecified Qualified Code(s): N17.9 - Acute kidney failure, unspecified Code(s): N17.9 - Acute kidney failure, unspecified Status: Inactive Assessment and Plan: Cr 2.5 that has improved to 1.3 today. Cr normal one year ago. Good UOP. Continue hydration. Avoid nephrotoxic medications. (3) Leukocytosis: Code(s): D72.829 - Elevated white blood cell count, unspecified Status: Acute Assessment and Plan: WBC climbed to 21.6K on 01/07/20 but trending down yesterday. WBC up back up to 26.8K today but no fevers and pateint clinically improving. Suspect more elevated WBC related to the steroids. Will continue to follow for now. BCx NGTD. (4) Acute hypokalemia: Code(s): E87.6 - Hypokalemia Status: Inactive Assessment and Plan: Potassium 1.4 on admission and has received IV and oral replacement. Mag level high. Probably related to Lasix and HCTZ as well as noncompliance with oral potassium treatment. The patient was evidently prescribed potassium chloride supplements as outpatient but did not take them as the pills were too large. Potassium normal today. Will given K+Phos today. Continue to monitor and replace as needed. (5) COPD (chronic obstructive pulmonary disease): Code(s): J44.9 - Chronic obstructive pulmonary disease, unspecified Status: Acute Assessment and Plan: Patient wheezing today. He continues to smoke. He uses Breo and Incruse at home. He was given Solu-Medrol once yesterday. Continue Symbicort and Albuterol here. Consider Prednisone if persisent wheezing. (6) Hyponatremia: Code(s): E87.1 - Hypo-osmolality and hyponatremia Status: Acute Assessment and Plan: Na 126 on admission and has not much changed despite rehydration. Initally felt related to dehydration from HCTZ and Lasix. TSH and cortisol normal. Krupa 13 with FENa on 0.3%. Will continue NS for one more day. (7) T12 compression fracture: Code(s): S22.080A - Wedge compression fracture of T11-T12 vertebra, initial encounter for closed fracture Status: Acute Assessment and Plan: Imaging showing an acute T12 compression fracture. Probably related to one of his many falls. Will need back brace, PT/OT. Back brace ordered. Start PT and OT. (8) Elevated bilirubin: Code(s): R17 - Unspecified jaundice Status: Acute Assessment and Plan: TB 4.4 but better on recheck at 1.7 today with IB 1.0. RUQ US showing hepatic steatosis and cholelithiasis. Hepatitis panel negative. Doubt cholangitis given no dilated ducts or stones by US or CT scan. Possibly Gilbert's vs cholestasis. (9) Suspected 2019 novel coronavirus infection: Code(s): Z20.828 - Contact with and (suspected) exposure to other viral communicable diseases Status: Acute Assessment and Plan: COVID negative. Discussed with marketing analytics manager. His markers and clincial picture consistent with COVID so COVID test was repeated. Repeat COVID test pending. (10) History of CVA (cerebrovascular accident): Code(s): Z86.73 - Personal history of transient ischemic attack (TIA), and cerebral infarction without residual deficits Status: Acute (11) Falls frequently: Code(s): R29.6 - Repeated falls Status: Acute
--- NOTE | 2020-01-09 08:24 | WPDINTPN ---
Progress Note: A&P Assessment and Plan (1) Hypotension: Qualifiers: Hypotension type: unspecified hypotension type Qualified Code(s): I95.9 - Hypotension, unspecified Code(s): I95.9 - Hypotension, unspecified Status: Acute Assessment and Plan: Blood pressure is much improved, a Hypotension likely related to hypovolemia from over-diuresis, dehydration -will decrease maintenance IV fluids - patient was on the floor for 45 minutes with no loss of consciousness before he could get up. Could have aspirated, will start sentences WBC count is 26.8 -UA is clean -will continue telemetry monitoring (2) Hypokalemia: Code(s): E87.6 - Hypokalemia Status: Acute Assessment and Plan: Hypokalemia with potassium of 1.4 admission -patient has been aggressively -last potassium of 3.4, phosphorus is 2.3. K Phos ordered (3) Elevated bilirubin: Code(s): R17 - Unspecified jaundice Status: Acute Assessment and Plan: Hepatitis panel is negative.. -patient has a history of alcoholism -right upper quadrant ultrasound showed diffuse hepatic steatosis, cholelithiasis but no evidence of acute cholecystitis (4) COPD (chronic obstructive pulmonary disease): Code(s): J44.9 - Chronic obstructive pulmonary disease, unspecified Status: Acute Assessment and Plan: Patient history of COPD, no wheezing noted -continue bronchodilators -leukocytosis could be related to Solu-Medrol given on 01/08/2020 (5) CORA (acute kidney injury): Code(s): N17.9 - Acute kidney failure, unspecified Status: Acute Assessment and Plan: Patient with acute kidney injury likely related to diuresis, some rhabdomyolysis as he was on the floor for 45+ minutes after fall -patient continues to be hydrated, -creatinine trending down -continue to monitor renal function, electrolytes and urine output (6) Suspected 2019 novel coronavirus infection: Code(s): Z20.828 - Contact with and (suspected) exposure to other viral communicable diseases Status: Acute Assessment and Plan: SARS-CoV-2 PCR x1 is negative -patient placed on droplet, airborne and contact isolation -given his inflammatory markers are elevated, SARS-CoV-2 PCR was repeated and is pending (7) Hyponatremia: Code(s): E87.1 - Hypo-osmolality and hyponatremia Status: Acute Assessment and Plan: Likely related to diuresis (HCTZ and Lasix use) -patient on normal saline maintenance IV fluids -continue to monitor sodium levels (8) DVT prophylaxis: Code(s): Z29.9 - Encounter for prophylactic measures, unspecified Status: Acute Assessment and Plan: Subcu Lovenox Additional Plan Discussed with patient updated with his condition and plan of care. Code status: Full code Critical care time spent: 32 minutes D/w Dr Mejia, [place] after COVID-19 is ruled out Due to a high probability of clinically significant, life threatening deterioration, the patient required my highest level of preparedness to intervene emergently and I personally spent this critical care time directly and personally managing the patient. This critical care time included obtaining a history; examining the patient; pulse oximetry; ordering and review of studies; arranging urgent treatment with development of a management plan; evaluation of patient's response to treatment; frequent reassessment; and discussions with other providers. It was exclusive of separately billable procedures and treating other patients and teaching time. Please see Assessment and Plan section and the rest of the note for further information on patient assessment and treatment Subjective Date/time seen: 01/09/20 08:24 Reason for consult: Fall, hypotension, rule out COVID-19 01/09/2020: Patient seen examined this morning. Is awake, alert, oriented x2, he could not tell me the year. Patient denies any shortness of breath, chest pain
--- NOTE | 2020-01-09 08:59 | PCPTNOTE ---
PT/OT orders received...per department policy, patient will be seen when his test returns, and it is determined that he is either positive/negative for Covid 19...will see when appropriate
[2020-01-09] MEDS: POTASSIUM PHOS/SODIUM PHOS 250 MG TABLET PO (09:16)
[2020-01-09] MEDS: ENOXAPARIN 40 MG/0.4 ML SYRINGE SUB-Q (09:17)
[2020-01-09] MEDS: FAMOTIDINE 20 MG/2 ML VIAL IV PUSH ×2 (09:18→21:27)
[2020-01-09] MEDS: NICOTINE (*PBKC) 14 MG PATCH 1 PATCH TRANSDERM (09:19)
[2020-01-09] MEDS: THIAMINE HCL 100 MG TABLET PO (09:19)
[2020-01-09] MEDS: FOLIC ACID 1 MG TABLET PO (09:19)
--- NOTE | 2020-01-09 09:53 | PCOTNOTE ---
Pt is COVID pending (confirmed by nurse). OT services to hold until results come back
[2020-01-09] MEDS: CHLORDIAZEPOXIDE 25 MG CAPSULE PO ×2 (12:22→17:50)
[2020-01-09 13:11] LABS: SARS-CoV-2 RNA PCR Negative
--- NOTE | 2020-01-09 14:08 | PCOTNOTE ---
Pt not medically stable enough to be seen, this date. Will attempt again tomorrow.
[2020-01-09] MEDS: SODIUM CHLORIDE 0.9% IV 1,000 ML 75 ML IV CONT (15:00)
[2020-01-09] MEDS: ACETAMINOPHEN 325 MG TABLET 650 MG PO (18:28)
--- NOTE | 2020-01-09 18:49 | PC.NURSE ---
This patient, Daniel Lopez, was received from ICU[facility] on 01/09/20 at 1845. Report received from Estefany GUTHRIE. Personal belongings list checked and signed. Patient/family oriented to unit policies and routines
--- NOTE | 2020-01-09 19:10 | PC.NURSE ---
This patient, Daniel Lopez, was transferred to [facility] on 01/09/20 at 1849. Personal belongings sent with patient. Belongings list checked. Report given to Isabelle GUTHRIE. Appropriate documentation sent with patient.
[2020-01-09] MEDS: FUROSEMIDE INJ 40 MG/4 ML VIAL 20 MG IV PUSH (20:13)
[2020-01-10] VITALS (18 sets, daily range): BP systolic 89–136; BP diastolic 53–78; PULSE 76–100; RESP 20–24; TEMP 35.9–36.8; O2SAT 86–98
[2020-01-10] MEDS: CHLORDIAZEPOXIDE 25 MG CAPSULE PO ×5 (00:02→23:48)
[2020-01-10 05:33] LABS: Hematocrit 34.5 % (42.0-52.0); Hemoglobin 11.9 g/dL (14.0-18.0); Mean Corpuscular HGB Conc 34.5 g/dl (32-36); Mean Corpuscular Hemoglobin 32.4 pg (26-34); Mean Platelet Volume 9.3 fl (7.4-10.4); Platelet Count Result 271 k/mm3 (150-375); Red Blood Count 3.67 M/mm3 (4.6-6.20); White Blood Count 19.5 K/mm3 (4.5-10.0)
[2020-01-10 05:47] LABS: Albumin Level 2.5 g/dL (3.5-5.1); Blood Urea Nitrogen 16 mg/dL (9-20); Calcium 7.6 mg/dL (8.4-10.2); Carbon Dioxide 32 mmol/L (22-30); Chloride 97 mmol/L (98-107); Estimated CRCL calculation 56 ml/min; Estimated Glomerular Filt Rate > 60; Glucose 101 mg/dL (75-110); Magnesium 1.6 mg/dL (1.6-2.3); Phosphorus 2.3 mg/dL (2.5-4.5); Potassium 3.2 mmol/L (3.4-5.0); Sodium 132 mmol/L (137-145)
[2020-01-10] MEDS: MAGNESIUM SULF 2 GM/WATER 50ML 2 GM/50 ML BAG IVPB (08:05)
[2020-01-10] MEDS: POTASSIUM CHLORIDE 20 MEQ TABLET 40 MEQ PO (08:05)
[2020-01-10] MEDS: FAMOTIDINE 20 MG/2 ML VIAL IV PUSH ×2 (08:08→21:07)
[2020-01-10] MEDS: ALBUTEROL SULFATE (*SP) AEROSOL 1 PUFF 6 PUFF INHALATION ×4 (08:14→19:37)
[2020-01-10] MEDS: POTASSIUM PHOS,M-BASIC-D-BASIC 20 MMOL in SODIUM CHLORIDE 0.9% IV 250 ML 64 MMOL IVPB (08:32)
[2020-01-10] MEDS: NICOTINE (*PBKC) 14 MG PATCH 1 PATCH TRANSDERM (08:33)
[2020-01-10] MEDS: ENOXAPARIN 40 MG/0.4 ML SYRINGE SUB-Q (08:33)
[2020-01-10] MEDS: FOLIC ACID 1 MG TABLET PO (08:33)
[2020-01-10] MEDS: THIAMINE HCL 100 MG TABLET PO (08:33)
--- NOTE | 2020-01-10 08:37 | PC.NURSE ---
Patient's O2 on room air was at 86% 0828 on 01/10/2020. Applied continuous pulse ox and 2L/NC. O2 is 95% currently
--- NOTE | 2020-01-10 14:32 | PM.IMPN ---
Progress Note: A&P Assessment and Plan (1) Septic shock: Code(s): A41.9 - Sepsis, unspecified organism; R65.21 - Severe sepsis with septic shock Status: Acute Assessment and Plan: Patient with either septic shock versus hypovolemia. Lactic acid 5.4 but normallized. Patient responded to IV fluid boluses. BP still soft at times but better overall. Renal function improving. Will continue with Zosyn for now. (2) Acute renal failure: Qualifiers: Acute renal failure type: unspecified Qualified Code(s): N17.9 - Acute kidney failure, unspecified Code(s): N17.9 - Acute kidney failure, unspecified Status: Inactive Assessment and Plan: Cr 2.5 that has improved to 1.1 today. Cr normal one year ago. Excellent UOP and toelrated the Lasix. Continue to monitor. (3) Alcoholism /alcohol abuse: Code(s): F10.20 - Alcohol dependence, uncomplicated Status: Acute Assessment and Plan: The patient quit drinking alcohol in 2018 prsumably but niece feels this is how he acts during withdrawal symptoms. CIWA ranging from 0-7 but up to 11 at one point. Elena is having hallucinatins consistent with withdrawal symptoms. Continue the scheduled Librium. Continue CIWA protocol. Continue Thiamine and Folate. Add Ativan for CIWA>10. Check CT brain. Repeat CT brain showing enlarging hygromas. The inital CT brain 01/06 did see then but they are larger now. Discussed with radiology. Still not causing mass effect. Will continue monitor clinically and repeat CT brain in another day or so. (4) Leukocytosis: Code(s): D72.829 - Elevated white blood cell count, unspecified Status: Acute Assessment and Plan: WBC climbed to 21.6K on 01/07/20 but trending down yesterday. WBC up back up to 26.8K related to steroids. Currently on Zosyn for the possible PNA (but CT chest negative). No fevers and WBC down to 19K. BCx NGTD. Will continue to follow for now. Check CXR in the morning. (5) Acute hypokalemia: Code(s): E87.6 - Hypokalemia Status: Inactive Assessment and Plan: Potassium 1.4 on admission and has received IV and oral replacement. Mag level high. Probably related to Lasix and HCTZ as well as noncompliance with oral potassium treatment. Potassium 3.2 and replacement ordered again. Will given K+Phos today. Continue to monitor and replace as needed. Repeat potassium 4.1. (6) COPD (chronic obstructive pulmonary disease): Code(s): J44.9 - Chronic obstructive pulmonary disease, unspecified Status: Acute Assessment and Plan: Patient still wheezing today. He continues to smoke. He uses Breo and Incruse at home. He was given Solu-Medrol once 01/08/20. NIV fluids stopped due to SOB and CXR showing pulmonary edema vs PNA. Symptoms better off IV fluids and Lasix once (with good UOP). Continue Symbicort and Albuterol here. Will repeat CXR in the morning. Solu-Medrol IV (7) Hyponatremia: Code(s): E87.1 - Hypo-osmolality and hyponatremia Status: Acute Assessment and Plan: Na 126 on admission and has improved with rehydration. Krupa 13 with FENa on 0.3%. [place] related to dehydration from HCTZ and Lasix. TSH and cortisol normal. IV fluids stopped. (8) T12 compression fracture: Code(s): S22.080A - Wedge compression fracture of T11-T12 vertebra, initial encounter for closed fracture Status: Acute Assessment and Plan: Imaging showing an acute T12 compression fracture. Probably related to one of his many falls. Back brace ordered. Start PT/OT. Ortho consult. (9) Elevated bilirubin: Code(s): R17 - Unspecified jaundice Status: Acute Assessment and Plan: TB 4.4 but better on recheck at 1.7 yesterday with IB 1.0. RUQ US showing hepatic steatosis and cholelithiasis. Hepatitis panel negative. Doubt cholangitis given no dilated ducts or stones b
[2020-01-10 17:17] LABS: Albumin Level 2.7 g/dL (3.5-5.1); Blood Urea Nitrogen 15 mg/dL (9-20); Calcium 7.8 mg/dL (8.4-10.2); Carbon Dioxide 33 mmol/L (22-30); Chloride 97 mmol/L (98-107); Estimated CRCL calculation 52 ml/min; Estimated Glomerular Filt Rate 60; Glucose 99 mg/dL (75-110); Phosphorus 3.1 mg/dL (2.5-4.5); Potassium 4.1 mmol/L (3.4-5.0); Sodium 133 mmol/L (137-145)
[2020-01-10] MEDS: LORAZEPAM INJ 2 MG/ML VIAL 1 MG IV PUSH ×2 (17:58→23:48)
[2020-01-10] MEDS: methylPREDNISolone SOD SUCC 125 MG VIAL 60 MG IV PUSH (21:06)
[2020-01-11] VITALS (21 sets, daily range): BP systolic 104–132; BP diastolic 51–89; PULSE 73–98; RESP 18–30; TEMP 35.9–37; O2SAT 89–96
[2020-01-11 05:01] LABS: Basophils Percent Auto 0.2 % (0.2-1.2); Hematocrit 34.8 % (42.0-52.0); Immature Granulocyte Absolute 0.12 K/mm3 (0.00-0.031); Lymphocytes Absolute Auto 0.49 K/mm3 (0.9-3.2); Lymphocytes Percent Auto 3.9 % (18.3-44.2); Mean Corpuscular HGB Conc 34.5 g/dl (32-36); Mean Corpuscular Hemoglobin 32.3 pg (26-34); Mean Corpuscular Volume 93.5 fl (80-100); Mean Platelet Volume 8.8 fl (7.4-10.4); Monocytes Absolute Auto 0.3 K/mm3 (0.1-0.6); Monocytes Percent Auto 2.2 % (2.6-8.5); Neutrophils Absolute Auto 11.6 K/mm3 (1.3-6.7); Neutrophils Percent Auto 92.7 % (45.5-73.1); Platelet Count Result 229 k/mm3 (150-375); Red Blood Count 3.72 M/mm3 (4.6-6.20); Red Cell Distribution Width 13.9 % (11.5-14.5); White Blood Count 12.5 K/mm3 (4.5-10.0)
[2020-01-11] MEDS: CHLORDIAZEPOXIDE 25 MG CAPSULE PO (05:34)
[2020-01-11] MEDS: LORAZEPAM INJ 2 MG/ML VIAL 1 MG IV PUSH (05:34)
[2020-01-11 05:41] LABS: Alanine Aminotransferase 27 U/L (4-50); Albumin Level 2.6 g/dL (3.5-5.1); Alkaline Phosphatase 100 U/L (38-126); Aspartate Amino Transferase 36 U/L (17-59); Blood Urea Nitrogen 16 mg/dL (9-20); CRP 12.7 mg/dL (<1.0); Calcium 7.6 mg/dL (8.4-10.2); Carbon Dioxide 28 mmol/L (22-30); Chloride 100 mmol/L (98-107); Estimated CRCL calculation 68 ml/min; Estimated Glomerular Filt Rate > 60; Glucose 162 mg/dL (75-110); Magnesium 1.7 mg/dL (1.6-2.3); Phosphorus 3.6 mg/dL (2.5-4.5); Potassium 4.2 mmol/L (3.4-5.0); Sodium 132 mmol/L (137-145)
[2020-01-11] MEDS: ALBUTEROL SULFATE (*SP) AEROSOL 1 PUFF 6 PUFF INHALATION ×2 (08:39→11:59)
[2020-01-11] MEDS: ENOXAPARIN 40 MG/0.4 ML SYRINGE SUB-Q (09:32)
[2020-01-11] MEDS: NICOTINE (*PBKC) 14 MG PATCH 1 PATCH TRANSDERM (09:33)
[2020-01-11] MEDS: FAMOTIDINE 20 MG/2 ML VIAL IV PUSH ×2 (09:33→20:09)
--- NOTE | 2020-01-11 11:23 | PM.CNOR ---
Assessment and Plan Assessment and plan (1) T12 compression fracture: Qualifiers: Encounter type: initial encounter Qualified Code(s): S22.080A - Wedge compression fracture of T11-T12 vertebra, initial encounter for closed fracture Code(s): S22.080A - Wedge compression fracture of T11-T12 vertebra, initial encounter for closed fracture Status: Acute Assessment and Plan: 69-year-old male with a minimally compressed T12 vertebral body fracture. He already has an extension orthosis. I will plan on following this with serial x-rays over the course of the next couple of months. I will follow while he is in the hospital. thank you for the consultation. History of Present Illness HPI Consult date: 01/11/20 Consult reason: fracture ( T12 compression fracture) Chief complaint: Fall unable to get up Review of Systems Review of Systems: ROS unobtainable: Yes unobtainable due to medical condition ( patient not answering questions this morning) PMFSH Past Medical History Medical History Alcoholism /alcohol abuse With prior H&P documenting 10 beers a day. 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 on [place] at [facility] History of CVA (cerebrovascular accident) CVA 08/2018: Documentation varies in states bilateral frontal lobe infarcts but and another section states her bilateral fabi infarcts resulting in gait instability and moderate cognitive deficit PTSD (post-traumatic stress disorder) Surgical History Surgical History H/O arthroscopy of right knee History of surgery on arm History of right arm and leg surgery for shrapnel removal during [place] Hx of CABG 1991 Family History Family History Sibling Breast cancer Sister Social History Social History Social History: The patient states that he quit drinking alcohol about a year ago. However he has been smoking a pack of cigarettes per day pretty consistently since he was a teenager. Primary care physician: Dr. Sammy Nails Code status: Full code Smoking packs per day: 1 Smoking cigarettes per day: 20.0 Years smoked: 40 Smoking pack-years: 40.00 Smoking status: Current every day smoker Tobacco type: cigarettes Second hand tobacco smoke exposure: Yes Alcohol intake: former Alcohol use details: The patient is a recovering alcoholic. He used to drink up to a 10 pack of beer per day. Substance use: never Living arrangements: alone Occupation/Education: retired Additional occupation/education comments: The patient's served in [employer] for 3 years. He then worked for the [employer] working in a [employer]. Gender identity (if verbalized by the patient): Male Sexual Orientation (if Verbalized by the Patient): Straight or Heterosexual Spiritual care concerns: No Meds Home Medications and Allergies Home Medications Medication Instructions Recorded Confirmed Type bupropion HCl 150 mg PO BID 01/07/20 01/07/20 History fluoxetine 40 mg PO DAILY 01/07/20 01/07/20 History fluticasone furoate-vilanterol 1 inh INHALATION DAILY 01/07/20 01/07/20 History [Breo Ellipta] furosemide 40 mg PO DAILY 01/07/20 01/07/20 History hydrochlorothiazide 25 mg PO DAILY 01/07/20 01/07/20 History potassium chloride 40 meq PO DAILY 01/07/20 01/07/20 History tadalafil 20 mg PO DAILY 01/07/20 01/07/20 History umeclidinium [Incruse Ellipta] 1 inh INHALATION DAILY 01/07/20 01/07/20 History Allergies Allergy/AdvReac Type Severity Reaction Status Date / Time No Known Allergies Allergy Unverifi
--- NOTE | 2020-01-11 12:53 | PM.IMPN ---
Progress Note: A&P Assessment and Plan (1) Septic shock: Code(s): A41.9 - Sepsis, unspecified organism; R65.21 - Severe sepsis with septic shock Status: Acute Assessment and Plan: Patient with either septic shock versus hypovolemia. Lactic acid 5.4 but normallized. Patient responded to IV fluid boluses. BP better overall and renal function normal now. Continue Zosyn for now. BCx NGTD. Keep in IMU for now. Repeat exam: Patient more alert but speech is dysarthric. Dopplers negative for DVT. ABG is consistent with hypoxia. CXR looks worse and c/w pulmonary edema. Still could be PNA and developing ARDS. COVID negatrive x2 here. BP okay and Cr okay. Lasix x 1. (2) Acute renal failure: Qualifiers: Acute renal failure type: unspecified Qualified Code(s): N17.9 - Acute kidney failure, unspecified Code(s): N17.9 - Acute kidney failure, unspecified Status: Inactive Assessment and Plan: Cr 2.5 that has improved to 0.9 today. Cr normal one year ago. Excellent UOP and toelrated the Lasix. Continue to monitor. (3) Alcoholism /alcohol abuse: Code(s): F10.20 - Alcohol dependence, uncomplicated Status: Acute Assessment and Plan: The patient quit drinking alcohol in 2018 prsumably but spoke with niece yesterday and she feels this is how he acts during withdrawal symptoms. CIWA ranging from 0-7 initially but up to 19 overnight. Pateint was having hallucinatins consistent with withdrawal symptoms but now just somnolent probably related to the Ativan. Will hold the scheduled Librium and Ativan. Continue CIWA protocol. Continue Thiamine and Folate. Consider resuming some meds once he wakes up. CT brain 01/06 did show hygromas (8,9mm)per radiology but repeat CT brain 01/09 showing enlarging hygromas (12,15mm) but no shift. Discussed with radiology. Feel the mental status related to Ativan and not due to hygromas. Will see how he does off the benzos. Check ABG. Continue to monitor clinically and repeat CT brain tomorrow. (4) Leukocytosis: Code(s): D72.829 - Elevated white blood cell count, unspecified Status: Acute Assessment and Plan: WBC climbed to 21.6K on 01/07/20. Trending down initially but then back up to 26.8K on 01/08 felt related to steroids. Currently on Zosyn for possible PNA (CT chest negative but may have been too dehydrated). No fevers and WBC down to 12K but CRP up to 12.7. BCx NGTD. Will continue Zosyn for now. (5) Acute hypokalemia: Code(s): E87.6 - Hypokalemia Status: Inactive Assessment and Plan: Potassium 1.4 on admission and has received IV and oral replacement. Probably related to Lasix and HCTZ as well as noncompliance with oral potassium treatment. Potassium 4.2 today. Continue to monitor and replace as needed. (6) COPD (chronic obstructive pulmonary disease): Code(s): J44.9 - Chronic obstructive pulmonary disease, unspecified Status: Acute Assessment and Plan: Patient still wheezing today. He continues to smoke. He uses Breo and Incruse at home. He was given Solu-Medrol once 01/08/20 and again 01/10/20. IV fluids stopped due to SOB and CXR 01/08 showing pulmonary edema vs PNA. Lasix given with good UOP. COVID negative so will change to nebs. Solu-Medrol IV scheduled if CXR improved. (7) Hyponatremia: Code(s): E87.1 - Hypo-osmolality and hyponatremia Status: Acute Assessment and Plan: Na 126 on admission and has improved with rehydration. Krupa 13 with FENa on 0.3%. [place] low sodium related to dehydration from HCTZ and Lasix. TSH and cortisol normal. IV fluids stopped. Will resume maintenance fluids today and make him NPO. (8) T12 compression fracture: Qualifiers: Encounter type: initial encounter Qualified Code(s): S22.080A - Wedge compression fracture of T11-T12 vertebra, initial encounter for closed fracture
[2020-01-11 14:50] LABS: Alveolar/Arterial O2 Gradient 153.6 mmHg; Base Excess ABG 4.6 mEq/l (+/-2.0); Device NASAL CANNULA; Fractional Inspired Oxygen 36 %; HCO3 ABG 28.8 mEq/l (22.0-26.0); Modified Allen's Test Pass; Oxygen Content ABG 15.4 %vol (16.0-22.0); Oxygen Saturation ABG 90.4 % (95.0-100.0); Oxyhemoglobin 87.7 % THb (90.0-100.0); PCO2 ABG 41.1 mmHg (35.0-45.0); PO2 ABG 55.4 mmHg (80.0-100.0); PO2 FiO2 Ratio Arterial Blood 1.54 %; Site Drawn RIGHT RADIAL; Total Hemoglobin 12.5 g/dL (12.0-18.0); pH ABG 7.463 (7.350-7.450)
[2020-01-11] MEDS: IPRATROPIUM BR 0.02% INH SOLN 0.5 MG/2.5 ML VIAL INHALATION ×2 (14:57→19:33)
[2020-01-11] MEDS: ALBUTEROL SULFATE NEB 2.5 MG/0.5 ML INH 5 MG INHALATION ×2 (14:57→19:33)
--- NOTE | 2020-01-11 16:59 | PC.NURSE ---
1000-pt sleeping- very drowsy arouses to name- but returns back to sleep- unable to take po medications- O2 on 4l/nc-VSS-
[2020-01-11] MEDS: FUROSEMIDE INJ 40 MG/4 ML VIAL IV PUSH (20:10)
[2020-01-12] VITALS (22 sets, daily range): BP systolic 101–160; BP diastolic 55–88; PULSE 71–103; RESP 20–40; TEMP 36.3–36.7; O2SAT 89–98; BMI 10.0
[2020-01-12] MEDS: LORAZEPAM INJ 2 MG/ML VIAL 1 MG IV PUSH ×2 (00:09→23:27)
[2020-01-12] MEDS: ALBUTEROL SULFATE NEB 2.5 MG/0.5 ML INH 5 MG INHALATION ×4 (00:52→19:28)
[2020-01-12] MEDS: IPRATROPIUM BR 0.02% INH SOLN 0.5 MG/2.5 ML VIAL INHALATION ×4 (00:53→19:28)
[2020-01-12 02:17] LABS: Alveolar/Arterial O2 Gradient 155.5 mmHg; Base Excess ABG 3.7 mEq/l (+/-2.0); Carboxyhemoglobin 0.3 % THb (0-2.0); Fractional Inspired Oxygen 36 %; HCO3 ABG 27.3 mEq/l (22.0-26.0); Methemoglobin ABG 0.1 %THb (0-1.5); Oxygen Saturation ABG 91.8 % (95.0-100.0); Oxyhemoglobin 88.7 % THb (90.0-100.0); PCO2 ABG 37.7 mmHg (35.0-45.0); PO2 ABG 57.5 mmHg (80.0-100.0); Reduced Hemoglobin 10.9 %THb (0-5.0); Total Hemoglobin 12.8 g/dL (12.0-18.0); pH ABG 7.477 (7.350-7.450)
[2020-01-12 02:18] LABS: Device NASAL CANNULA; Modified Allen's Test Pass; Site Drawn RIGHT RADIAL
[2020-01-12 05:06] LABS: Basophils Percent Auto 0.1 % (0.2-1.2); Eosinophils Absolute Auto 0.1 K/mm3 (0-0.3); Eosinophils Percent Auto 0.3 % (0-4.4); Immature Granulocyte Percent A 1.1 % (0-0.5); Lymphocytes Absolute Auto 1.22 K/mm3 (0.9-3.2); Lymphocytes Percent Auto 6.8 % (18.3-44.2); Mean Corpuscular HGB Conc 34.3 g/dl (32-36); Mean Corpuscular Hemoglobin 32.7 pg (26-34); Mean Corpuscular Volume 95.4 fl (80-100); Mean Platelet Volume 9.2 fl (7.4-10.4); Monocytes Absolute Auto 1.3 K/mm3 (0.1-0.6); Monocytes Percent Auto 7.1 % (2.6-8.5); Neutrophils Absolute Auto 15.2 K/mm3 (1.3-6.7); Neutrophils Percent Auto 84.6 % (45.5-73.1); Platelet Count Result 273 k/mm3 (150-375); Red Blood Count 3.67 M/mm3 (4.6-6.20); Red Cell Distribution Width 14.1 % (11.5-14.5)
[2020-01-12 05:35] LABS: Albumin Level 2.9 g/dL (3.5-5.1); Blood Urea Nitrogen 19 mg/dL (9-20); Calcium 8.1 mg/dL (8.4-10.2); Carbon Dioxide 29 mmol/L (22-30); Chloride 100 mmol/L (98-107); Estimated CRCL calculation 76 ml/min; Estimated Glomerular Filt Rate > 60; Glucose 89 mg/dL (75-110); Magnesium 1.6 mg/dL (1.6-2.3); Potassium 3.1 mmol/L (3.4-5.0); Sodium 134 mmol/L (137-145)
[2020-01-12] MEDS: NICOTINE (*PBKC) 14 MG PATCH 1 PATCH TRANSDERM (08:55)
[2020-01-12] MEDS: ENOXAPARIN 40 MG/0.4 ML SYRINGE SUB-Q (08:55)
[2020-01-12] MEDS: FUROSEMIDE INJ 40 MG/4 ML VIAL IV PUSH (08:55)
[2020-01-12] MEDS: FAMOTIDINE 20 MG/2 ML VIAL IV PUSH ×2 (08:55→20:01)
[2020-01-12] MEDS: FOLIC ACID 1 MG TABLET PO (09:04)
[2020-01-12] MEDS: THIAMINE HCL 100 MG TABLET PO (09:06)
--- NOTE | 2020-01-12 16:38 | PM.IMPN ---
Progress Note: A&P Assessment and Plan (1) Septic shock: Code(s): A41.9 - Sepsis, unspecified organism; R65.21 - Severe sepsis with septic shock Status: Acute Assessment and Plan: Patient with either septic shock versus hypovolemia. Lactic acid 5.4 but normallized. Patient responded to IV fluid boluses. BP better overall and renal function normal now. Continue Zosyn for now. BCx NGTD. Keep in IMU for now. Repeat exam: Patient more alert but speech is dysarthric. Dopplers negative for DVT. ABG is consistent with hypoxia. CXR looks worse and c/w pulmonary edema. Still could be PNA and developing ARDS. COVID negatrive x2 here. BP okay and Cr okay. Lasix x 1.again today (2) Alcoholism /alcohol abuse: Code(s): F10.20 - Alcohol dependence, uncomplicated Status: Acute Assessment and Plan: The patient quit drinking alcohol in 2018 prsumably but spoke with niece yesterday and she feels this is how he acts during withdrawal symptoms. CIWA ranging from 0-7 initially but up to 19 overnight. Pateint was having hallucinatins consistent with withdrawal symptoms . Will hold the scheduled Librium and Ativan. Continue CIWA protocol. Continue Thiamine and Folate. Consider resuming some meds once he wakes up. CT brain 01/06 did show hygromas (8,9mm)per radiology but repeat CT brain 01/09 showing enlarging hygromas (12,15mm) but no shift. Discussed with radiology. Feel the mental status related to Ativan and not due to hygromas. Will see how he does off the benzos. Check ABG. Continue to monitor clinically and repeat CT today . (3) Leukocytosis: Code(s): D72.829 - Elevated white blood cell count, unspecified Status: Acute Assessment and Plan: WBC climbed to 21.6K on 01/07/20. Trending down initially but then back up to 26.8K on 01/08 felt related to steroids. Currently on Zosyn for possible PNA (CT chest negative but may have been too dehydrated). No fevers and WBC down to 12K but CRP up to 12.7. BCx NGTD. Will continue Zosyn for now. (4) COPD (chronic obstructive pulmonary disease): Code(s): J44.9 - Chronic obstructive pulmonary disease, unspecified Status: Acute Assessment and Plan: Patient still wheezing today. He continues to smoke. He uses Breo and Incruse at home. He was given Solu-Medrol once 01/08/20 and again 01/10/20. IV fluids stopped due to SOB and CXR 01/08 showing pulmonary edema vs PNA. Lasix given with good UOP. COVID negative so changed to nebs. Solu-Medrol IV scheduled if cxr improves with lasix (5) Hyponatremia: Code(s): E87.1 - Hypo-osmolality and hyponatremia Status: Acute Assessment and Plan: Na 126 on admission and has improved with rehydration. Krupa 13 with FENa on 0.3%. [place] low sodium related to dehydration from HCTZ and Lasix. TSH and cortisol normal. IV fluids stopped. Will resume maintenance fluids today and make him NPO. (6) T12 compression fracture: Qualifiers: Encounter type: initial encounter Qualified Code(s): S22.080A - Wedge compression fracture of T11-T12 vertebra, initial encounter for closed fracture Code(s): S22.080A - Wedge compression fracture of T11-T12 vertebra, initial encounter for closed fracture Status: Acute Assessment and Plan: Imaging showing an acute T12 compression fracture. Probably related to one of his many falls. Back brace in place. Patient states his back pain was better with the brace on. Continue therapy. Appreciate Ortho input (7) Elevated bilirubin: Code(s): R17 - Unspecified jaundice Status: Acute Assessment and Plan: TB 4.4 but dropped to 1.7 (with IB 1.0). Bili today is 2.0 and probably elevated due to multiple causes. RUQ US showing hepatic steatosis and cholelithiasis. Hepatitis panel negative. Doubt cholangitis given no dilated ducts or stones by US or CT scan. Possibly Gilbert's vs cholest
[2020-01-12 17:15] LABS: Blood Urea Nitrogen 19 mg/dL (9-20); Calcium 8.2 mg/dL (8.4-10.2); Carbon Dioxide 33 mmol/L (22-30); Chloride 100 mmol/L (98-107); Estimated CRCL calculation 76 ml/min; Estimated Glomerular Filt Rate > 60; Glucose 100 mg/dL (75-110); Phosphorus 2.6 mg/dL (2.5-4.5); Potassium 3.6 mmol/L (3.4-5.0); Sodium 135 mmol/L (137-145)
--- NOTE | 2020-01-12 18:08 | PCSTNOTE ---
Please refer to the Modified Barium Swallow Evaluation in the EMR.
[2020-01-13] VITALS (22 sets, daily range): BP systolic 102–142; BP diastolic 48–81; PULSE 88–112; RESP 20–40; TEMP 35.8–36.7; O2SAT 90–97
[2020-01-13] MEDS: IPRATROPIUM BR 0.02% INH SOLN 0.5 MG/2.5 ML VIAL INHALATION ×3 (01:41→20:40)
[2020-01-13] MEDS: ALBUTEROL SULFATE NEB 2.5 MG/0.5 ML INH 5 MG INHALATION ×3 (01:41→20:41)
--- NOTE | 2020-01-13 02:47 | PC.NURSE ---
Pt pulled perez until he caused bleeded it cloted off and couldn't irrigate. Called Dr. Patterson she said to start CBI
[2020-01-13 05:15] LABS: Basophils Percent Auto 0.3 % (0.2-1.2); Eosinophils Absolute Auto 0.4 K/mm3 (0-0.3); Eosinophils Percent Auto 2.5 % (0-4.4); Hematocrit 36.8 % (42.0-52.0); Hemoglobin 12.2 g/dL (14.0-18.0); Immature Granulocyte Absolute 0.27 K/mm3 (0.00-0.031); Immature Granulocyte Percent A 1.8 % (0-0.5); Lymphocytes Absolute Auto 0.94 K/mm3 (0.9-3.2); Lymphocytes Percent Auto 6.1 % (18.3-44.2); Mean Corpuscular HGB Conc 33.2 g/dl (32-36); Mean Corpuscular Hemoglobin 32.4 pg (26-34); Mean Corpuscular Volume 97.6 fl (80-100); Mean Platelet Volume 8.8 fl (7.4-10.4); Monocytes Absolute Auto 1.5 K/mm3 (0.1-0.6); Monocytes Percent Auto 9.7 % (2.6-8.5); Neutrophils Absolute Auto 12.3 K/mm3 (1.3-6.7); Neutrophils Percent Auto 79.6 % (45.5-73.1); Platelet Count Result 276 k/mm3 (150-375); Red Blood Count 3.77 M/mm3 (4.6-6.20); Red Cell Distribution Width 14.4 % (11.5-14.5); White Blood Count 15.4 K/mm3 (4.5-10.0)
[2020-01-13 05:22] LABS: Blood Urea Nitrogen 18 mg/dL (9-20); Calcium 8.2 mg/dL (8.4-10.2); Carbon Dioxide 29 mmol/L (22-30); Chloride 103 mmol/L (98-107); Estimated CRCL calculation 68 ml/min; Estimated Glomerular Filt Rate > 60; Glucose 102 mg/dL (75-110); Magnesium 1.5 mg/dL (1.6-2.3); Potassium 3.7 mmol/L (3.4-5.0); Sodium 136 mmol/L (137-145)
[2020-01-13] MEDS: FAMOTIDINE 20 MG/2 ML VIAL IV PUSH ×2 (08:56→19:39)
[2020-01-13] MEDS: NICOTINE (*PBKC) 14 MG PATCH 1 PATCH TRANSDERM (08:56)
[2020-01-13] MEDS: ENOXAPARIN 40 MG/0.4 ML SYRINGE SUB-Q (08:56)
--- NOTE | 2020-01-13 12:26 | WPDURCON ---
Assessment and Plan Assessment and plan (1) Renal mass: Code(s): N28.89 - Other specified disorders of kidney and ureter Status: Acute Assessment and Plan: Will get CT abdomen/pelvis with and without contrast to further assess renal mass. Viewed Chest CT with Dr. Sky and discussed plan. Will determine if this is cystic or a mass then create an outpatient plan. (2) Hematuria: Code(s): R31.9 - Hematuria, unspecified Status: Acute Assessment and Plan: Discussed with Dr. Grubbs, it is better to leave perez out at this time d/t no retention, patient is urinating well. He agrees that it would cause more harm than good to re-place it just for I&O purposes, d/t potential for him to pull it out again and cause more trauma to the area. No further assessment at this time. Urology Consult Note HPI Date Seen: 01/13/20 Requesting Physician: Alo Mejia MD Primary Care Provider: Sammy Nails, Consult Narrative Narrative: Daniel Lopez is a 69 year old male who we were asked to see regarding a traumatic perez removal by the patient as well as a left renal mass noted on CT scan of the chest incidentally on 01/07/2020. The Patient is here following a fall on the concrete at home. He had a perez placed to monitor I&O's initially, however he became confused and pulled it out last night, causing bloody drainage from the urethra. He is urinating independently and his bladder scan post void was 110cc. His left renal mass measures 14mm on CT. WBC is 15.8 which is down from 18, creatinine is normal 0.90. He states he does have some frequency of urination at home and hesitancy as well as nocturia, but denies dysuria, hematuria normally with urination abdominal pain or flank pain. He is a poor historian but does respond to questions appropriately. He had a negative MEDINA on 01/09/2020. Review of Systems Cardiovascular: Cardiovascular: Denies chest pain Respiratory: Respiratory: Reports dyspnea Gastrointestinal: Gastrointestinal: Denies abdominal pain, Denies nausea and Denies vomiting Genitourinary: Genitourinary: Reports hematuria, Denies genital pain, Denies dysuria, Denies flank pain, Reports urinary frequency and Reports urinary hesitancy PMFSH Past Medical History Medical History Alcoholism /alcohol abuse With prior H&P documenting 10 beers a day. 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 on CAMRON at [facility] History of CVA (cerebrovascular accident) CVA 08/2018: Documentation varies in states bilateral frontal lobe infarcts but and another section states her bilateral fabi infarcts resulting in gait instability and moderate cognitive deficit PTSD (post-traumatic stress disorder) T12 compression fracture Surgical History Surgical History H/O arthroscopy of right knee History of surgery on arm History of right arm and leg surgery for shrapnel removal during [place] Hx of CABG 1991 Family History Family History Sibling Breast cancer Sister Social History Social History Social History: The patient states that he quit drinking alcohol about a year ago. However he has been smoking a pack of cigarettes per day pretty consistently since he was a teenager. Primary care physician: Dr. Sammy Nails Code status: Full code Smoking packs per day: 1 Smoking cigarettes per day: 20.0 Years smoked: 40 Smoking pack-years: 40.00 Smoking status: Current every day smoker Tobacco type: cigarettes Second hand tobacco smoke exposure: Yes Alcoh
--- NOTE | 2020-01-13 13:53 | PCOTNOTE ---
Attempted to see patient this P.M. When asked if patient would like to participate in OT session, patient declined stating I just don't want to today and reports of being tired and having pain. SUBSTANCE ABUSE RN present in room and reports that patient had rough night last night, pulling out perez catheter and not sleeping well. Skilled OT session not completed this date.
--- NOTE | 2020-01-13 15:02 | PCPTNOTE ---
Attempted to see patient at 15:00 for physical therapy, however patient out of room for testing. Therapy will attempt to see patient tomorrow as appropriate. Donita Bowden, DISTRESSER
--- NOTE | 2020-01-13 18:02 | PM.IMPN ---
Progress Note: A&P Assessment and Plan (1) Septic shock: Code(s): A41.9 - Sepsis, unspecified organism; R65.21 - Severe sepsis with septic shock Status: Acute Assessment and Plan: Patient with either septic shock versus hypovolemia. Lactic acid 5.4 but normallized. Patient responded to IV fluid boluses. BP better overall and renal function normal now. Continue Zosyn for now. BCx NGTD. Keep in IMU for now. . Dopplers negative for DVT. ABG is consistent with hypoxia. CXR today clearing on R but persistant left infitrates. Still could be PNA and CHF. COVID negatrive x2 here. BP okay and Cr okay. Lasix last 2 days with good diuresis and will hold today with better chest xray and essentially no po intake other than piggy backs (2) Alcoholism /alcohol abuse: Code(s): F10.20 - Alcohol dependence, uncomplicated Status: Acute Assessment and Plan: The patient quit drinking alcohol in 2018 prsumably but spoke with niece yesterday and she feels this is how he acts during withdrawal symptoms. CIWA ranging from 0-7 initially but up to 19 overnight. Pateint was having hallucinatins consistent with withdrawal symptoms . . Continue CIWA protocol. Continue Thiamine and Folate. Consider resuming some meds once he wakes up. CT brain 01/06 did show hygromas (8,9mm)per radiology but repeat CT brain 01/09 showing enlarging hygromas (12,15mm) but no shift. Continue to monitor clinically and repeat CT 01/11 no change . (3) Leukocytosis: Code(s): D72.829 - Elevated white blood cell count, unspecified Status: Acute Assessment and Plan: WBC climbed to 21.6K on 01/07/20. Trending down initially but then back up to 26.8K on 01/08 felt related to steroids. Currently on Zosyn for possible PNA (CT chest negative but may have been too dehydrated and may have aspirated too). No fevers and WBC down to 15kK . BCx NGTD. Will continue Zosyn for now. (4) COPD (chronic obstructive pulmonary disease): Code(s): J44.9 - Chronic obstructive pulmonary disease, unspecified Status: Acute Assessment and Plan: Patient still wheezing today. He continues to smoke. He uses Breo and Incruse at home. He was given Solu-Medrol once 01/08/20 and again 01/10/20. IV fluids stopped due to SOB and CXR 01/08 showing pulmonary edema vs PNA. Lasix given with good UOP.01/10 and 01/11 COVID negative so changed to nebs. start solumedrol because feel is more Pul bronchospasm (5) Hyponatremia: Code(s): E87.1 - Hypo-osmolality and hyponatremia Status: Acute Assessment and Plan: Na 126 on admission and has improved with rehydration. Krupa 13 with FENa on 0.3%. [place] low sodium related to dehydration from HCTZ and Lasix. TSH and cortisol normal. IV fluids stopped. possible restart 01/13. (6) T12 compression fracture: Qualifiers: Encounter type: initial encounter Qualified Code(s): S22.080A - Wedge compression fracture of T11-T12 vertebra, initial encounter for closed fracture Code(s): S22.080A - Wedge compression fracture of T11-T12 vertebra, initial encounter for closed fracture Status: Acute Assessment and Plan: Imaging showing an acute T12 compression fracture. Probably related to one of his many falls. Back brace in place. Patient states his back pain was better with the brace on. Continue therapy. Appreciate Ortho input (7) Elevated bilirubin: Code(s): R17 - Unspecified jaundice Status: Acute Assessment and Plan: TB 4.4 but dropped to 1.7 (with IB 1.0). Bili today is 2.0 and probably elevated due to multiple causes. RUQ US showing hepatic steatosis and cholelithiasis. Hepatitis panel negative. Doubt cholangitis given no dilated ducts or stones by US or CT scan. Possibly Gilbert's vs cholestasis vs hepatic steatosis. (8) Suspected 2019 novel coronavirus infection: Code(s): Z20.828 - Contact with and (susp
[2020-01-13] MEDS: methylPREDNISolone SOD SUCC 125 MG VIAL 60 MG IV PUSH (19:39)
[2020-01-14] VITALS (28 sets, daily range): BP systolic 108–178; BP diastolic 61–89; PULSE 87–113; RESP 18–34; TEMP 35.7–36.8; O2SAT 92–99; BMI 24.8
[2020-01-14] MEDS: ALBUTEROL SULFATE NEB 2.5 MG/0.5 ML INH 5 MG INHALATION ×4 (03:32→20:48)
[2020-01-14] MEDS: IPRATROPIUM BR 0.02% INH SOLN 0.5 MG/2.5 ML VIAL INHALATION ×4 (03:32→20:48)
[2020-01-14 05:17] LABS: Basophils Percent Auto 0.2 % (0.2-1.2); Hematocrit 35.6 % (42.0-52.0); Hemoglobin 11.7 g/dL (14.0-18.0); Immature Granulocyte Absolute 0.24 K/mm3 (0.00-0.031); Immature Granulocyte Percent A 1.7 % (0-0.5); Lymphocytes Absolute Auto 0.54 K/mm3 (0.9-3.2); Lymphocytes Percent Auto 3.7 % (18.3-44.2); Mean Corpuscular HGB Conc 32.9 g/dl (32-36); Mean Corpuscular Hemoglobin 32.1 pg (26-34); Mean Corpuscular Volume 97.8 fl (80-100); Monocytes Absolute Auto 0.3 K/mm3 (0.1-0.6); Monocytes Percent Auto 2.3 % (2.6-8.5); Neutrophils Absolute Auto 13.4 K/mm3 (1.3-6.7); Neutrophils Percent Auto 92.1 % (45.5-73.1); Platelet Count Result 284 k/mm3 (150-375); Red Blood Count 3.64 M/mm3 (4.6-6.20); Red Cell Distribution Width 14.2 % (11.5-14.5); White Blood Count 14.5 K/mm3 (4.5-10.0)
[2020-01-14 05:26] LABS: Blood Urea Nitrogen 21 mg/dL (9-20); Calcium 8.4 mg/dL (8.4-10.2); Carbon Dioxide 25 mmol/L (22-30); Chloride 105 mmol/L (98-107); Estimated CRCL calculation 86 ml/min; Estimated Glomerular Filt Rate > 60; Glucose 161 mg/dL (75-110); Potassium 4.1 mmol/L (3.4-5.0); Sodium 139 mmol/L (137-145)
[2020-01-14] MEDS: methylPREDNISolone SOD SUCC 125 MG VIAL 60 MG IV PUSH ×3 (05:29→23:13)
--- NOTE | 2020-01-14 07:17 | WPDUROPN2 ---
Progress Note: A&P Assessment and Plan (1) Hematuria: Code(s): R31.9 - Hematuria, unspecified Status: Acute Assessment and Plan: Hematuria persists and CT abdomen pelvis suggestive moderate size clot. I will plan cystoscopy with clot evacuation today. (2) Renal cyst: Code(s): N28.1 - Cyst of kidney, acquired Status: Acute Assessment and Plan: CT scan the abdomen and pelvis with and without contrast demonstrates findings consistent with a 1.3cm proteinaceous cyst in his left kidney. No further evaluation of this benign lesion is indicated. Subjective Subjective Date/Time Seen: 01/14/20 07:17 Seems comfortable, confused Review of Systems Review of Systems: ROS unobtainable: Yes unobtainable due to mental status Exam Const: General: no acute distress Resp: Effort & Inspection: normal respiratory effort GI: Inspection: non-distended GI Palp: No abdominal tenderness and No Guarding due to palpation present (GI) Auscultation: normal bowel sounds Objective Data Vital Signs Vital Signs: Vital Signs - 24 hr 01/13/20 08:00 01/13/20 09:50 01/13/20 10:00 Temperature 96.7 F L Pulse Rate 93 99 Pulse Rate [Bilateral Pedal (Dorsalis Pedis) Palpation] 94 Respiratory Rate 36 H Blood Pressure 128/78 Pulse Oximetry 95 92 01/13/20 11:56 01/13/20 12:00 01/13/20 14:00 Temperature 96.5 F L Pulse Rate 94 94 93 Pulse Rate [Bilateral Pedal (Dorsalis Pedis) Palpation] 94 Respiratory Rate 30 H Blood Pressure 126/81 126/81 Pulse Oximetry 94 01/13/20 14:30 01/13/20 14:38 01/13/20 16:00 Temperature 96.5 F L Pulse Rate 95 97 112 H Pulse Rate [Bilateral Pedal (Dorsalis Pedis) Palpation] 96 Respiratory Rate 30 H Blood Pressure 142/73 H Pulse Oximetry 92 01/13/20 18:00 01/13/20 18:59 01/13/20 20:00 Temperature 96.6 F L Pulse Rate 95 94 96 Pulse Rate [Bilateral Pedal (Dorsalis Pedis) Palpation] 89 Respiratory Rate 30 H Blood Pressure 142/72 H Pulse Oximetry 90 01/13/20 20:41 01/13/20 20:54 01/13/20 22:00 Temperature Pulse Rate 92 95 95 Pulse Rate [Bilateral Pedal (Dorsalis Pedis) Palpation] Respiratory Rate 30 H 30 H Blood Pressure Pulse Oximetry 95 01/13/20 23:40 01/14/20 00:00 01/14/20 02:00 Temperature 97.8 F Pulse Rate 91 94 91 Pulse Rate [Bilateral Pedal (Dorsalis Pedis) Palpation] 109 H Respiratory Rate 20 Blood Pressure 102/48 L Pulse Oximetry 92 01/14/20 03:33 01/14/20 03:40 01/14/20 04:00 Temperature 97.8 F Pulse Rate 89 89 100 Pulse Rate [Bilateral Pedal (Dorsalis Pedis) Palpation] 94 Respiratory Rate 28 H 30 H 20 Blood Pressure 124/76 Pulse Oximetry 96 01/14/20 06:00 Temperature Pulse Rate 94 Pulse Rate [Bilateral Pedal (Dorsalis Pedis) Palpation] Respiratory Rate Blood Pressure Pulse Oximetry Intake/Output Intake/Output: Intake & Output 01/11/20 01/12/20 01/13/20 01/14/20 23:59 23:59 23:59 23:59 Intake Total 200 200 250 50 Output Total 1550 3675 450 [facility] -1350 -3475 -200 50 Meds/Results Medications: Active Medications Generic Name Dose Route Start Last Admin Trade Name Freq PRN Reason Stop Dose Admin Acetaminophen 650 mg 01/07/20 21:53 01/09/20 18:28 Tylenol Tablet PO 650 mg Q4H PRN Administration Mild Pain (1-3) or Fever Albuterol 5 mg 01/11/20 14:00 01/14/20 03:32 Albuterol Sulf Neb 2.5mg/0.5ml INHALATION 5 mg Q6HRT JERMAIN Administration Albuterol 5 mg 01/12/20 08:37 Albuterol Sulf Neb 2.5mg/0.5ml INHALATION Q4HRT PRN Shortness Of Breath Budesonide/Formoterol Fumarate 2 puff 01/08/20 08:00 01/13/20 20:41 Symbicort 160-4.5 Mcg (*Sp) Inhaler INHALATION 2 puff Q12HRT JERMAIN Administration Bupropion HCl 150 mg 01/08/20 09:00 01/12/20 17:22 Wellbutrin-Sr (12 Hr) PO Not Given BID JERMAIN Calcium Carbonate 200 mg 01/09/20 00:44 01/09/20 01:04 Tums PO 200 mg Q6H PRN A
[2020-01-14] MEDS: ENOXAPARIN 40 MG/0.4 ML SYRINGE SUB-Q (09:47)
[2020-01-14] MEDS: FAMOTIDINE 20 MG/2 ML VIAL IV PUSH ×2 (09:48→20:10)
[2020-01-14] MEDS: NICOTINE (*PBKC) 14 MG PATCH 1 PATCH TRANSDERM (09:48)
[2020-01-14] MEDS: LACTATED RINGERS 1,000 ML 30 ML IV CONT (10:30)
--- NOTE | 2020-01-14 10:30 | WPDANESEPPF ---
Anes - Initial Pre Proc Eval Procedure: Operation Date: 01/14/20 11:00 Proposed Procedures p Cystoscopy, Evacuation Bladder Clots - Sidney Romero MD Date/Time: 01/14/20 10:30 Surgeon: Alo Mejia MD Pre Op Diagnosis: Shock uncertain origin Patient Data Age: 69 Gender: M Height: 1.78 m Weight: 78.6 kg Last Vital Signs Temp 36.1 C L 01/14/20 08:00 Pulse 97 01/14/20 09:28 Resp 26 H 01/14/20 09:28 BP 117/73 01/14/20 08:00 Pulse Ox 92 01/14/20 09:16 Allergies Allergy/AdvReac Type Severity Reaction Status Date / Time No Known Allergies Allergy Unverified 09/12/18 11:03 Home Medications Medication Instructions Recorded Confirmed Type bupropion HCl 150 mg PO BID 01/07/20 01/07/20 History fluoxetine 40 mg PO DAILY 01/07/20 01/07/20 History fluticasone furoate-vilanterol 1 inh INHALATION DAILY 01/07/20 01/07/20 History [Breo Ellipta] furosemide 40 mg PO DAILY 01/07/20 01/07/20 History hydrochlorothiazide 25 mg PO DAILY 01/07/20 01/07/20 History potassium chloride 40 meq PO DAILY 01/07/20 01/07/20 History tadalafil 20 mg PO DAILY 01/07/20 01/07/20 History umeclidinium [Incruse Ellipta] 1 inh INHALATION DAILY 01/07/20 01/07/20 History Laboratory Tests 01/14/20 01/14/20 04:56 04:56 WBC 14.5 K/mm3 H K/mm3 (4.5-10.0) RBC 3.64 M/mm3 L M/mm3 (4.6-6.20) Hgb 11.7 g/dL L g/dL (14.0-18.0) Hct 35.6 % L % (42.0-52.0) MCV 97.8 fl fl (80-100) MCH 32.1 pg pg (26-34) MCHC 32.9 g/dl g/dl (32-36) RDW 14.2 % % (11.5-14.5) Plt Count 284 k/mm3 k/mm3 (150-375) MPV 9.0 fl fl (7.4-10.4) Immature Gran % (Auto) 1.7 % H % (0-0.5) Neut % (Auto) 92.1 % H % (45.5-73.1) Lymph % (Auto) 3.7 % L % (18.3-44.2) [place] % (Auto) 2.3 % L % (2.6-8.5) Eos % (Auto) 0.0 % % (0-4.4) Baso % (Auto) 0.2 % % (0.2-1.2) Lymph # (Auto) 0.54 K/mm3 L K/mm3 (0.9-3.2) [place] # (Auto) 0.3 K/mm3 K/mm3 (0.1-0.6) Eos # (Auto) 0.0 K/mm3 K/mm3 (0-0.3) Baso # (Auto) 0.0 K/mm3 K/mm3 (0.0-0.1) Abs Immat Gran (auto) 0.24 K/mm3 H K/mm3 (0.00-0.031) Absolute Neuts (auto) 13.4 K/mm3 H K/mm3 (1.3-6.7) Absolute Nucleated RBC 0.0 K/mm3 K/mm3 (0.0-0.012) Nucleated RBC % 0.0 % % (0.0-0.2) Sodium 139 mmol/L mmol/L (137-145) Potassium 4.1 mmol/L mmol/L (3.4-5.0) Chloride 105 mmol/L mmol/L (98-107) Carbon Dioxide 25 mmol/L mmol/L (22-30) BUN 21 mg/dL H mg/dL (9-20) Creatinine 0.70 mg/dL mg/dL (0.7-1.3) Estim Creat Clear Calc 86 ml/min ml/min Estimated GFR > 60 (59 - ) Glucose 161 mg/dL H mg/dL (75-110) Calcium 8.4 mg/dL mg/dL (8.4-10.2) Patient hx anesthesia problems: none Family hx anesthesia problems: none [facility] Past Medical History Medical History Alcoholism /alcohol abuse With prior H&P documenting 10 beers a day. 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
--- NOTE | 2020-01-14 10:55 | SUR.PREOP ---
1030- CALLED DR. FLOWERS TO UPDATE HIM PT RECEIVED LOVENOX ON THE FLOOR. HE STATED THAT WAS OK. 1045- SPOKE WITH PT MARNI CASAS. MARNI IS PT FRAN. MARNI VERBALLY GAVE OK FOR BRACELET TO STAY ON DURING PROCEDURE. CONSENT SIGNED. BRACELET WRAPPED IN GAUZE.
--- NOTE | 2020-01-14 11:03 | PCOTNOTE ---
Attempted to see patient this am, however per RN, pt off floor for procedure.
[2020-01-14] MEDS: LIDOCAINE HCL 2% GEL UROJET 10 ML PKG MUCOUS MEM (11:10)
--- NOTE | 2020-01-14 11:21 | PM.PROC ---
Procedure Note - Detailed Date of procedure: 01/14/20 Pre-op diagnosis: Shock uncertain origin Post-op diagnosis: other (Hematuria due to BPH) Procedure performed: 1. Cystoscopy with clot evacuation 2. Cauterization prostate Description of procedure: The patient is brought to the operative suite where he is prepped and draped in a routine sterile fashion while in a dorsal lithotomy position. 2% lidocaine jelly is introducing intraurethrally and allowed to stand for an appropriate period of time. Systemic sedation is administered by the anesthesia department. Cystoscopy is undertaken with a 19F rigid cystoscope. There were no urethral strictures. The prostatic urethral estimated length was []cm. There was mild obstruction of the prostatic urethra with no median lobe enlargement. The prostatic urethra measures 1.5cm. There is a large clots floating in the dependent portion of the bladder. I removed the flexible cystoscope and placed a 27F resectoscope sheath. The large clot was evacuated with a TUMI syringe. The bladder mucosa showed no areas of suspicious hyperemia and there were no neoplasms. There was some catheter cystitis in the posterior midline wall of the bladder. There was a single, orthotopic ureteral orifice bilaterally. I used a 5 mm robotic cauterize some oozing from the lateral lobe of his prostate. There is no other significant sites of bleeding. I opted not to replace the catheter given his propensity to traumatically pulled out. The patient was taken to the recovery room having tolerated the procedure well. Implants: None Anesthesia: GLMA Surgeon: Sidney Romero MD Estimated blood loss (mL): 0 Drains: No Packing: No Pathology: none sent Complications: No immediate complications Condition: stable Disposition: PACU
--- NOTE | 2020-01-14 11:59 | SUR.PHASEI ---
called anesthesia at [address] Collins came and gave phrnyephrine 100 mcg.
--- NOTE | 2020-01-14 16:33 | PM.IMPN ---
Progress Note: A&P Assessment and Plan (1) Septic shock: Code(s): A41.9 - Sepsis, unspecified organism; R65.21 - Severe sepsis with septic shock Status: Acute Assessment and Plan: Patient with either septic shock versus hypovolemia. Lactic acid 5.4 but normallized. Patient responded to IV fluid boluses. BP better overall and renal function normal now. Continue Zosyn for now D#7. . BCx NGTD. Keep in IMU for now. . Dopplers negative for DVT. ABG is consistent with hypoxia. CXR 01/12 clearing on R but persistant left infitrates. Still could be PNA and CHF. COVID negatrive x2 here. BP okay and Cr okay. Lasix last 2 days with good diuresis 01/10 and 01/11, and now hold with better chest xray and essentially no po intake other than piggy backs (2) Alcoholism /alcohol abuse: Code(s): F10.20 - Alcohol dependence, uncomplicated Status: Acute Assessment and Plan: The patient quit drinking alcohol in 2017 prsumably but spoke with niece yesterday and she feels this is how he acts during withdrawal symptoms. CIWA ranging from 0-7 initially but up to 19 overnight. Pateint was having hallucinatins consistent with withdrawal symptoms . . Continue CIWA protocol. Continue Thiamine and Folate. Consider resuming some meds once he wakes up. CT brain 01/06 did show hygromas (8,9mm)per radiology but repeat CT brain 01/09 showing enlarging hygromas (12,15mm) but no shift. Continue to monitor clinically and repeat CT 01/11 no change . (3) Leukocytosis: Code(s): D72.829 - Elevated white blood cell count, unspecified Status: Acute Assessment and Plan: WBC climbed to 21.6K on 01/07/20. Trending down initially but then back up to 26.8K on 01/08 felt related to steroids. Currently on Zosyn for possible PNA (CT chest negative but may have been too dehydrated and may have aspirated too). No fevers and WBC down to 14K . BCx NGTD. Will continue Zosyn for now. as above D#7 (4) COPD (chronic obstructive pulmonary disease): Code(s): J44.9 - Chronic obstructive pulmonary disease, unspecified Status: Acute Assessment and Plan: Patient still wheezing 01/11. He continues to smoke. He uses Breo and Incruse at home. He was given Solu-Medrol once 01/08/20 and again 01/10/20. IV fluids stopped due to SOB and CXR 01/08 showing pulmonary edema vs PNA. Lasix given with good UOP.01/10 and 01/11 COVID negative so changed to nebs. started solumedrol because feel is more Pul bronchospasm 01/12 and much better today (5) Hyponatremia: Code(s): E87.1 - Hypo-osmolality and hyponatremia Status: Acute Assessment and Plan: Na 126 on admission and has improved with rehydration. Krupa 13 with FENa on 0.3%. [place] low sodium related to dehydration from HCTZ and Lasix. TSH and cortisol normal. IV fluids stopped. (6) T12 compression fracture: Qualifiers: Encounter type: initial encounter Qualified Code(s): S22.080A - Wedge compression fracture of T11-T12 vertebra, initial encounter for closed fracture Code(s): S22.080A - Wedge compression fracture of T11-T12 vertebra, initial encounter for closed fracture Status: Acute Assessment and Plan: Imaging showing an acute T12 compression fracture. Probably related to one of his many falls. Back brace in place. Patient states his back pain was better with the brace on. Continue therapy. Appreciate Ortho input (7) Elevated bilirubin: Code(s): R17 - Unspecified jaundice Status: Acute Assessment and Plan: TB 4.4 but dropped to 1.7 (with IB 1.0). Bili today is 2.0 and probably elevated due to multiple causes. RUQ US showing hepatic steatosis and cholelithiasis. Hepatitis panel negative. Doubt cholangitis given no dilated ducts or stones by US or CT scan. Possibly Gilbert's vs cholestasis vs hepatic steatosis. (8) Suspected 2019 novel coronavirus infection: Code(s): Z2
[2020-01-15] VITALS (21 sets, daily range): BP systolic 110–142; BP diastolic 60–91; PULSE 76–116; RESP 18–30; TEMP 36.3–36.7; O2SAT 88–100; BMI 10.0
[2020-01-15] MEDS: ALBUTEROL SULFATE NEB 2.5 MG/0.5 ML INH 5 MG INHALATION ×3 (02:36→14:41)
[2020-01-15] MEDS: IPRATROPIUM BR 0.02% INH SOLN 0.5 MG/2.5 ML VIAL INHALATION ×3 (02:36→14:41)
[2020-01-15 05:03] LABS: Blood Urea Nitrogen 30 mg/dL (9-20); Calcium 8.7 mg/dL (8.4-10.2); Carbon Dioxide 29 mmol/L (22-30); Chloride 109 mmol/L (98-107); Estimated CRCL calculation 76 ml/min; Estimated Glomerular Filt Rate > 60; Glucose 131 mg/dL (75-110); Sodium 143 mmol/L (137-145)
[2020-01-15] MEDS: methylPREDNISolone SOD SUCC 125 MG VIAL 60 MG IV PUSH ×2 (05:47→16:58)
--- NOTE | 2020-01-15 08:39 | WPDUROPN2 ---
Progress Note: A&P Assessment and Plan (1) Hematuria: Code(s): R31.9 - Hematuria, unspecified Status: Acute Assessment and Plan: Hematuria due to underlying BPH complicated by traumatic catheter removal. Seems to have resolved now. We have no further plans for intervention at this point. Subjective Subjective Date/Time Seen: 01/15/20 08:39 Remains confused Review of Systems Review of Systems: ROS unobtainable: Yes unobtainable due to mental status Exam Const: General: no acute distress Resp: Effort & Inspection: normal respiratory effort GI: Inspection: non-distended GI Palp: No abdominal tenderness and No Guarding due to palpation present (GI) Auscultation: normal bowel sounds Objective Data Vital Signs Vital Signs: Vital Signs - 24 hr 01/14/20 09:16 01/14/20 09:28 01/14/20 10:00 Temperature Pulse Rate 93 97 102 H Respiratory Rate 22 H 26 H Blood Pressure Pulse Oximetry 92 01/14/20 10:38 01/14/20 11:21 01/14/20 11:30 Temperature 98.3 F 98.3 F Pulse Rate 95 87 91 Respiratory Rate 19 18 Blood Pressure 118/68 121/89 116/66 Pulse Oximetry 99 99 92 01/14/20 11:45 01/14/20 12:00 01/14/20 12:30 Temperature Pulse Rate 94 93 97 Respiratory Rate 24 H 25 H 23 H Blood Pressure 121/69 133/77 119/73 Pulse Oximetry 92 92 98 01/14/20 13:00 01/14/20 14:00 01/14/20 15:00 Temperature 97.2 F L 96.3 F L 96.8 F L Pulse Rate 92 92 99 Respiratory Rate 32 H 30 H 24 H Blood Pressure 110/61 117/74 108/65 Pulse Oximetry 97 99 98 01/14/20 15:05 01/14/20 15:08 01/14/20 15:17 Temperature Pulse Rate 98 97 Respiratory Rate 24 H 24 H Blood Pressure Pulse Oximetry 94 01/14/20 16:00 01/14/20 18:00 01/14/20 20:00 Temperature 96.7 F L 97.8 F Pulse Rate 97 100 96 Respiratory Rate 34 H 30 H Blood Pressure 115/78 178/64 H Pulse Oximetry 98 97 01/14/20 20:50 01/14/20 21:01 01/14/20 22:00 Temperature Pulse Rate 101 H 113 H 98 Respiratory Rate 22 H 22 H Blood Pressure Pulse Oximetry 01/15/20 00:00 01/15/20 02:00 01/15/20 02:38 Temperature 97.8 F Pulse Rate 105 H 100 101 H Respiratory Rate 30 H 20 Blood Pressure 110/71 Pulse Oximetry 97 01/15/20 02:48 01/15/20 04:00 01/15/20 06:00 Temperature 98 F Pulse Rate 108 H 103 H 105 H Respiratory Rate 20 30 H Blood Pressure 123/82 Pulse Oximetry 91 01/15/20 07:58 Temperature 98.1 F Pulse Rate 108 H Respiratory Rate 20 Blood Pressure 124/83 Pulse Oximetry 96 Intake/Output Intake/Output: Intake & Output 01/12/20 01/13/20 01/14/20 01/15/20 23:59 23:59 23:59 23:59 Intake Total 200 250 500 50 Output Total 3675 450 Balance -3475 -200 500 50 Meds/Results Medications: Active Medications Generic Name Dose Route Start Last Admin Trade Name Freq PRN Reason Stop Dose Admin Acetaminophen 650 mg 01/07/20 21:53 01/09/20 18:28 Tylenol Tablet PO 650 mg Q4H PRN Administration Mild Pain (1-3) or Fever Albuterol 5 mg 01/11/20 14:00 01/15/20 02:36 Albuterol Sulf Neb 2.5mg/0.5ml INHALATION 5 mg Q6HRT JERMAIN Administration Albuterol 5 mg 01/12/20 08:37 Albuterol Sulf Neb 2.5mg/0.5ml INHALATION Q4HRT PRN Shortness Of Breath Budesonide/Formoterol Fumarate 2 puff 01/08/20 08:00 01/14/20 20:49 Symbicort 160-4.5 Mcg (*Sp) Inhaler INHALATION 2 puff Q12HRT JERMAIN Administration Bupropion HCl 150 mg 01/08/20 09:00 01/12/20 17:22 Wellbutrin-Sr (12 Hr) PO Not Given BID JERMAIN Calcium Carbonate 200 mg 01/09/20 00:44 01/09/20 01:04 Tums PO 200 mg Q6H PRN Administration Indigestion Chlordiazepoxide HCl 25 mg 01/09/20 12:00 01/11/20 16:56 Librium Po PO Not Given Q6HR JERMAIN Enoxaparin Sodium 40 mg 01/09/20 09:00 01/14/20 09:47 Lovenox SUB-Q 40 mg DAILY JERMAIN Administration Famotidine 20 mg 01/09/20 09:00 01/14/20 20:10 Pepcid Iv IV PUSH 20 mg Q12HR JERMAIN Administration
[2020-01-15] MEDS: SODIUM CHLORIDE 0.45% 1,000 ML 75 ML IV CONT ×2 (08:59→23:19)
[2020-01-15] MEDS: FAMOTIDINE 20 MG/2 ML VIAL IV PUSH ×2 (09:01→19:53)
[2020-01-15] MEDS: ENOXAPARIN 40 MG/0.4 ML SYRINGE SUB-Q (09:01)
--- NOTE | 2020-01-15 09:08 | WPDANESPN ---
Anes - Prog Note Post-Op Date/Time: 01/15/20 09:08 Cardiovascular status: normal Respiratory status: other (FM 40%) Airway patency: baseline Mental status: baseline Post-Op hydration status: normal Vital Signs: Last Vital Signs Temp 36.7 C 01/15/20 07:58 Pulse 108 H 01/15/20 07:58 Resp 20 01/15/20 07:58 BP 124/83 01/15/20 07:58 Pulse Ox 96 01/15/20 07:58 I/O: Intake & Output 01/14/20 01/15/20 01/15/20 23:59 07:59 15:59 Intake Total 150 50 Balance 150 50 Laboratory Tests 01/14/20 04:56 01/15/20 04:42 01/15/20 04:42 Sodium 143 Potassium 4.0 Chloride 109 H Carbon Dioxide 29 BUN 30 H Creatinine 0.80 Estim Creat Clear Calc 76 Estimated GFR > 60 Glucose 131 H Calcium 8.7 Post-procedural complaints: none Patient Feedback: Patient satisfied with anesthetic care.
[2020-01-15] MEDS: THIAMINE HCL 200 MG/2 ML VIAL 100 MG IV PUSH (11:56)
--- NOTE | 2020-01-15 13:06 | PC.NURSE ---
This patient, Daniel Lopez, was transferred to [[id number] ] on 01/15/20 at 1210. Personal belongings sent with patient. Belongings list checked and signed with receiving [ ]. Report given to [Giuliana ]. Appropriate documentation sent with patient.
--- NOTE | 2020-01-15 14:04 | PCDIET ---
Nutrition Follow-Up Complete: Nutrition Diagnosis: Inadequate oral intake related to inabiliity to safely swallow as evidenced by NPO x 4 days. Nutrition Goal: Patient to meet estimated nutritional needs. Goal not met. Patient remains NPO. If unable to safely advance diet in next 48-72 hours, recommend Jevity 1.2 beginning at 20mL/hr and advancing by 10-15mL/hr every 4-6 hours, as tolerated, to goal of 70mL/hr x 22 hours/day for total of 1848kcal and 85g protein. Recommend 30mL water flush every 4 hours while IV fluids infusing. Last recorded weight is 77.3 kg which is down from last review. Bowel Motility: BM x 1 on 01/14/20. Labs Reviewed: Glu (131), BUN (30), Cl (109) Meds Noted: Albuterol, Solu Medrol, 0.45NaCl at 75mL/hr, Pepcid, Symbicort, Zosyn, Thiamine Additional Notes: Noted skin tears/abrasions. No documented pressure ulcers. Nutrition Monitoring and Evaluation: Follow up in 3 days.
--- NOTE | 2020-01-15 15:41 | PM.IMPN ---
Progress Note: A&P Assessment and Plan (1) Septic shock: Code(s): A41.9 - Sepsis, unspecified organism; R65.21 - Severe sepsis with septic shock Status: Acute Assessment and Plan: Patient with either septic shock versus hypovolemia. Lactic acid 5.4 but normallized. Patient responded to IV fluid boluses. BP better overall and renal function normal now. Continue Zosyn for now D#8. . BCx NGTD. will transfer to [facility]. . Dopplers negative for DVT. ABG is consistent with hypoxia. CXR 01/12 clearing on R but persistant left infitrates. Still could be PNA and CHF. COVID negatrive x2 here. BP okay and Cr okay. Lasix 2 days with good diuresis 01/10 and 01/11, and now hold with better chest xray and essentially no po intake other than piggy backs Bun elevated so start some maintenance fluids (2) Alcoholism /alcohol abuse: Code(s): F10.20 - Alcohol dependence, uncomplicated Status: Acute Assessment and Plan: The patient quit drinking alcohol in 2017 prsumably but spoke with niece yesterday and she feels this is how he acts during withdrawal symptoms. CIWA ranging from 0-7 initially but up to 19 overnight. Pateint was having hallucinatins consistent with withdrawal symptoms . . Continue CIWA protocol. Continue Thiamine and Folate. Consider resuming some meds once he wakes up. CT brain 01/06 did show hygromas (8,9mm)per radiology but repeat CT brain 01/09 showing enlarging hygromas (12,15mm) but no shift. Continue to monitor clinically and repeat CT 01/11 no change . (3) Leukocytosis: Code(s): D72.829 - Elevated white blood cell count, unspecified Status: Acute Assessment and Plan: WBC climbed to 21.6K on 01/07/20. Trending down initially but then back up to 26.8K on 01/08 felt related to steroids. Currently on Zosyn for possible PNA (CT chest negative but may have been too dehydrated and may have aspirated too). No fevers . BCx NGTD. Will continue Zosyn for now. as above D#8 WBC was trending down and will check in a.m. but may be up secondary to steroids now (4) COPD (chronic obstructive pulmonary disease): Code(s): J44.9 - Chronic obstructive pulmonary disease, unspecified Status: Acute Assessment and Plan: Patient still wheezing 01/11. He continues to smoke. He uses Breo and Incruse at home. He was given Solu-Medrol once 01/08/20 and again 01/10/20. IV fluids stopped due to SOB and CXR 01/08 showing pulmonary edema vs PNA. Lasix given with good UOP.01/10 and 01/11 COVID negative so changed to nebs. started solumedrol because feel is more Pul bronchospasm 01/12 and much better with bronchospasm gone (5) Hyponatremia: Code(s): E87.1 - Hypo-osmolality and hyponatremia Status: Acute Assessment and Plan: Na 126 on admission and has improved with rehydration. Krupa 13 with FENa on 0.3%. [place] low sodium related to dehydration from HCTZ and Lasix. TSH and cortisol normal. Na 143 this am (6) T12 compression fracture: Qualifiers: Encounter type: initial encounter Qualified Code(s): S22.080A - Wedge compression fracture of T11-T12 vertebra, initial encounter for closed fracture Code(s): S22.080A - Wedge compression fracture of T11-T12 vertebra, initial encounter for closed fracture Status: Acute Assessment and Plan: Imaging showing an acute T12 compression fracture. Probably related to one of his many falls. Back brace in place. Patient states his back pain was better with the brace on. Continue therapy. Appreciate Ortho input (7) Elevated bilirubin: Code(s): R17 - Unspecified jaundice Status: Acute Assessment and Plan: TB 4.4 but dropped to 1.7 (with IB 1.0). Bili today is 2.0 and probably elevated due to multiple causes. RUQ US showing hepatic steatosis and cholelithiasis. Hepatitis panel negative. Doubt cholangitis given no dilated ducts or stones by US or CT scan. Po
[2020-01-16] VITALS (15 sets, daily range): BP systolic 121–142; BP diastolic 66–93; PULSE 77–97; RESP 16–32; TEMP 36.2–36.6; O2SAT 94–100
[2020-01-16] MEDS: HALOPERIDOL LACTATE 5 MG/ML VIAL IM (00:33)
[2020-01-16] MEDS: ALBUTEROL SULFATE NEB 2.5 MG/0.5 ML INH 5 MG INHALATION ×4 (02:21→20:44)
[2020-01-16] MEDS: IPRATROPIUM BR 0.02% INH SOLN 0.5 MG/2.5 ML VIAL INHALATION ×4 (02:22→20:44)
[2020-01-16] MEDS: OLANZapine 10 MG INJ VIAL IM (04:38)
[2020-01-16] MEDS: methylPREDNISolone SOD SUCC 125 MG VIAL 60 MG IV PUSH (05:44)
[2020-01-16 06:01] LABS: Basophils Percent Auto 0.2 % (0.2-1.2); Hematocrit 36.2 % (42.0-52.0); Hemoglobin 11.6 g/dL (14.0-18.0); Immature Granulocyte Absolute 0.16 K/mm3 (0.00-0.031); Lymphocytes Percent Auto 5.5 % (18.3-44.2); Mean Corpuscular Hemoglobin 32.2 pg (26-34); Mean Corpuscular Volume 100.6 fl (80-100); Mean Platelet Volume 9.5 fl (7.4-10.4); Monocytes Absolute Auto 1.3 K/mm3 (0.1-0.6); Neutrophils Absolute Auto 13.8 K/mm3 (1.3-6.7); Neutrophils Percent Auto 85.3 % (45.5-73.1); Platelet Count Result 327 k/mm3 (150-375); Red Cell Distribution Width 14.4 % (11.5-14.5); White Blood Count 16.2 K/mm3 (4.5-10.0)
[2020-01-16 06:17] LABS: Blood Urea Nitrogen 33 mg/dL (9-20); Calcium 8.7 mg/dL (8.4-10.2); Carbon Dioxide 30 mmol/L (22-30); Chloride 115 mmol/L (98-107); Estimated CRCL calculation 76 ml/min; Estimated Glomerular Filt Rate > 60; Glucose 89 mg/dL (75-110); Magnesium 2.1 mg/dL (1.6-2.3); Potassium 4.8 mmol/L (3.4-5.0); Sodium 149 mmol/L (137-145)
[2020-01-16 07:53] LABS: Blood Urea Nitrogen 31 mg/dL (9-20); Calcium 8.4 mg/dL (8.4-10.2); Carbon Dioxide 26 mmol/L (22-30); Chloride 115 mmol/L (98-107); Estimated CRCL calculation 86 ml/min; Estimated Glomerular Filt Rate > 60; Glucose 91 mg/dL (75-110); Potassium 4.1 mmol/L (3.4-5.0); Sodium 146 mmol/L (137-145)
--- NOTE | 2020-01-16 08:49 | PCRCNOTE ---
Inhalers not given at this time. Pt. unable to do.
[2020-01-16] MEDS: ENOXAPARIN 40 MG/0.4 ML SYRINGE SUB-Q (09:43)
[2020-01-16] MEDS: NICOTINE (*PBKC) 14 MG PATCH 1 PATCH TRANSDERM (09:43)
[2020-01-16] MEDS: THIAMINE HCL 200 MG/2 ML VIAL 100 MG IV PUSH (09:45)
[2020-01-16] MEDS: FAMOTIDINE 20 MG/2 ML VIAL IV PUSH ×2 (11:11→20:45)
--- NOTE | 2020-01-16 11:30 | PM.IMPN ---
Progress Note: A&P Assessment and Plan (1) Septic shock: Code(s): A41.9 - Sepsis, unspecified organism; R65.21 - Severe sepsis with septic shock Status: Acute Assessment and Plan: Patient with either septic shock versus hypovolemia. Lactic acid 5.4 but normallized. Patient responded to IV fluid boluses. BP better overall and renal function normal now. Continue Zosyn D#9. . BCx NGTD. . Dopplers negative for DVT. ABG is consistent with hypoxia. CXR 01/12 clearing on R but persistant left infitrates. Still could be PNA and CHF. COVID negatrive x2 here. BP okay and Cr okay. Lasix 2 days with good diuresis 01/10 and 01/11, and now hold with better chest xray better and bun rising Bun elevated so started some maintenance fluids 01/14 (2) Alcoholism /alcohol abuse: Code(s): F10.20 - Alcohol dependence, uncomplicated Status: Acute Assessment and Plan: The patient quit drinking alcohol in 2017 prsumably but spoke with niece yesterday and she feels this is how he acts during withdrawal symptoms. CIWA ranging from 0-7 initially but up to 19 overnight. Pateint was having hallucinatins consistent with withdrawal symptoms . . Continue CIWA protocol. Continue Thiamine and Folate. Consider resuming some meds once he wakes up. CT brain 01/06 did show hygromas (8,9mm)per radiology but repeat CT brain 01/09 showing enlarging hygromas (12,15mm) but no shift. Continue to monitor clinically and repeat CT 01/11 no change . (3) Leukocytosis: Code(s): D72.829 - Elevated white blood cell count, unspecified Status: Acute Assessment and Plan: WBC climbed to 21.6K on 01/07/20. Trending down initially but then back up to 26.8K on 01/08 felt related to steroids. Currently on Zosyn for possible PNA (CT chest negative but may have been too dehydrated and may have aspirated too). No fevers . BCx NGTD. Will continue Zosyn for now. as above D#9 WBC was trending down with slight bump today at 16k probably secondary to steroids repeat cxr 01/16 (4) COPD (chronic obstructive pulmonary disease): Code(s): J44.9 - Chronic obstructive pulmonary disease, unspecified Status: Acute Assessment and Plan: Patient still wheezing 01/11. He continues to smoke. He uses Breo and Incruse at home. . IV fluids stopped due to SOB and CXR 01/08 showing pulmonary edema vs PNA. Lasix given with good UOP.01/10 and 01/11 COVID negative so changed to nebs. started solumedrol because feel is more Pul bronchospasm 01/12 and much better with bronchospasm gone. taper steroids and repeat cxr 01/16 (5) Hyponatremia: Code(s): E87.1 - Hypo-osmolality and hyponatremia Status: Acute Assessment and Plan: Na 126 on admission and has improved with rehydration. Krupa 13 with FENa on 0.3%. [place] low sodium related to dehydration from HCTZ and Lasix. TSH and cortisol normal. Na 146 this am and adding free h20 with 0.45Nacl (6) T12 compression fracture: Qualifiers: Encounter type: initial encounter Qualified Code(s): S22.080A - Wedge compression fracture of T11-T12 vertebra, initial encounter for closed fracture Code(s): S22.080A - Wedge compression fracture of T11-T12 vertebra, initial encounter for closed fracture Status: Acute Assessment and Plan: Imaging showing an acute T12 compression fracture. Probably related to one of his many falls. Back brace in place. Patient states his back pain was better with the brace on. Continue therapy. Appreciate Ortho input (7) Elevated bilirubin: Code(s): R17 - Unspecified jaundice Status: Acute Assessment and Plan: TB 4.4 but dropped to 1.7 (with IB 1.0). Bili today is 2.0 and probably elevated due to multiple causes. RUQ US showing hepatic steatosis and cholelithiasis. Hepatitis panel negative. Doubt cholangitis given no dilated ducts or stones by US or CT scan. Possibly Gilbert's vs brielle
--- NOTE | 2020-01-16 15:00 | PCOTNOTE ---
Patient declined treatment this pm due to fatigue after Phys. Therapy.
[2020-01-16] MEDS: FUROSEMIDE INJ 40 MG/4 ML VIAL IV PUSH (17:34)
[2020-01-16] MEDS: DEXTROSE 5% 1,000 ML 1,000 ML 50 ML IV CONT (18:22)
[2020-01-16] MEDS: LORAZEPAM INJ 2 MG/ML VIAL 1 MG IV PUSH ×2 (20:45)
[2020-01-17] VITALS (22 sets, daily range): BP systolic 101–130; BP diastolic 56–87; PULSE 68–108; RESP 16–30; TEMP 36–37.1; O2SAT 94–100
[2020-01-17] MEDS: LORAZEPAM INJ 2 MG/ML VIAL 1 MG IV PUSH ×3 (01:16→20:39)
[2020-01-17] MEDS: IPRATROPIUM BR 0.02% INH SOLN 0.5 MG/2.5 ML VIAL INHALATION ×4 (02:28→20:24)
[2020-01-17] MEDS: ALBUTEROL SULFATE NEB 2.5 MG/0.5 ML INH 5 MG INHALATION ×4 (02:28→20:24)
[2020-01-17 07:33] LABS: Blood Urea Nitrogen 25 mg/dL (9-20); Calcium 8.4 mg/dL (8.4-10.2); Carbon Dioxide 35 mmol/L (22-30); Chloride 111 mmol/L (98-107); Estimated CRCL calculation 68 ml/min; Estimated Glomerular Filt Rate > 60; Glucose 82 mg/dL (75-110); Potassium 3.8 mmol/L (3.4-5.0); Sodium 147 mmol/L (137-145)
[2020-01-17] MEDS: NICOTINE (*PBKC) 14 MG PATCH 1 PATCH TRANSDERM (09:45)
[2020-01-17] MEDS: FAMOTIDINE 20 MG/2 ML VIAL IV PUSH ×2 (09:46→20:38)
[2020-01-17] MEDS: ENOXAPARIN 40 MG/0.4 ML SYRINGE SUB-Q (09:46)
[2020-01-17] MEDS: THIAMINE HCL 200 MG/2 ML VIAL 100 MG IV PUSH (09:47)
[2020-01-17] MEDS: methylPREDNISolone SOD SUCC 40 MG VIAL IV PUSH (09:47)
[2020-01-17] MEDS: FUROSEMIDE INJ 40 MG/4 ML VIAL IV PUSH (11:04)
--- NOTE | 2020-01-17 12:35 | PM.IMPN ---
Progress Note: A&P Assessment and Plan (1) Septic shock: Code(s): A41.9 - Sepsis, unspecified organism; R65.21 - Severe sepsis with septic shock Status: Acute Assessment and Plan: Patient with either septic shock versus hypovolemia. Lactic acid 5.4 but normallized. Patient responded to IV fluid boluses. BP better overall and renal function normal now. Finish Zosyn today D#10. . BCx NGTD. . Dopplers negative for DVT. ABG is consistent with hypoxia. CXR 01/12 clearing on R but persistant left infitrates. Probably PNA and CHF. COVID negatrive x2 here. BP okay and Cr okay. Lasix again 01/15 and today. CxR today still looks like chf but 02 sat better and no findings on PE (2) Alcoholism /alcohol abuse: Code(s): F10.20 - Alcohol dependence, uncomplicated Status: Acute Assessment and Plan: The patient quit drinking alcohol in 2017 prsumably but spoke with niece yesterday and she feels this is how he acts during withdrawal symptoms. CIWA ranging from 0-7 initially but up to 19 overnight. Pateint was having hallucinatins consistent with withdrawal symptoms . . Continue CIWA protocol. Continue Thiamine and Folate. Consider resuming some meds once he wakes up. CT brain 01/06 did show hygromas (8,9mm)per radiology but repeat CT brain 01/09 showing enlarging hygromas (12,15mm) but no shift. Continue to monitor clinically and repeat CT 01/11 no change . (3) Leukocytosis: Code(s): D72.829 - Elevated white blood cell count, unspecified Status: Acute Assessment and Plan: WBC climbed to 21.6K on 01/07/20. Trending down initially but then back up to 26.8K on 01/08 felt related to steroids. Currently on Zosyn for possible PNA (CT chest negative but may have been too dehydrated and may have aspirated too). No fevers . BCx NGTD. D/C zosyn today. . as above D#10 WBC was trending down with slight bump 01/15 at 16k probably secondary to steroids repeat cxr 01/16 more consistent with CHF, IV lasix (4) COPD (chronic obstructive pulmonary disease): Code(s): J44.9 - Chronic obstructive pulmonary disease, unspecified Status: Acute Assessment and Plan: Patient still wheezing 01/11. He continues to smoke. He uses Breo and Incruse at home. . IV fluids stopped due to SOB and CXR 01/08 showing pulmonary edema vs PNA. Lasix given with good UOP.01/10 and 01/11 COVID negative so changed to nebs. started solumedrol because feel is more Pul bronchospasm 01/12 and much better with bronchospasm gone. taper steroids and repeat cxr today as above more chf, so more IV lasix (5) Hyponatremia: Code(s): E87.1 - Hypo-osmolality and hyponatremia Status: Acute Assessment and Plan: Na 126 on admission and has improved with rehydration. Krupa 13 with FENa on 0.3%. [place] low sodium related to dehydration from HCTZ and Lasix. TSH and cortisol normal. Na 147 this am and adding free h20 with D5W (6) T12 compression fracture: Qualifiers: Encounter type: initial encounter Qualified Code(s): S22.080A - Wedge compression fracture of T11-T12 vertebra, initial encounter for closed fracture Code(s): S22.080A - Wedge compression fracture of T11-T12 vertebra, initial encounter for closed fracture Status: Acute Assessment and Plan: Imaging showing an acute T12 compression fracture. Probably related to one of his many falls. Back brace in place. Patient states his back pain was better with the brace on. Continue therapy. Appreciate Ortho input (7) Elevated bilirubin: Code(s): R17 - Unspecified jaundice Status: Acute Assessment and Plan: TB 4.4 but dropped to 1.7 (with IB 1.0). Bili today is 2.0 and probably elevated due to multiple causes. RUQ US showing hepatic steatosis and cholelithiasis. Hepatitis panel negative. Doubt cholangitis given no dilated ducts or stones by US or CT scan. Possibly Gilbert's vs cholestasis
[2020-01-17] MEDS: DEXTROSE 5% 1,000 ML 1,000 ML 50 ML IV CONT (18:08)
[2020-01-18] VITALS (16 sets, daily range): BP systolic 112–139; BP diastolic 63–89; PULSE 79–118; RESP 16–24; TEMP 36.3–37.3; O2SAT 94–100
[2020-01-18] MEDS: LORAZEPAM INJ 2 MG/ML VIAL 1 MG IV PUSH ×2 (02:30→09:36)
[2020-01-18] MEDS: ALBUTEROL SULFATE NEB 2.5 MG/0.5 ML INH 5 MG INHALATION ×4 (02:37→19:36)
[2020-01-18] MEDS: IPRATROPIUM BR 0.02% INH SOLN 0.5 MG/2.5 ML VIAL INHALATION ×4 (02:37→19:36)
[2020-01-18 05:18] LABS: Basophils Percent Auto 0.1 % (0.2-1.2); Eosinophils Absolute Auto 0.2 K/mm3 (0-0.3); Eosinophils Percent Auto 1.1 % (0-4.4); Hematocrit 36.5 % (42.0-52.0); Immature Granulocyte Absolute 0.18 K/mm3 (0.00-0.031); Immature Granulocyte Percent A 1.1 % (0-0.5); Lymphocytes Percent Auto 11.2 % (18.3-44.2); Mean Corpuscular HGB Conc 32.9 g/dl (32-36); Mean Corpuscular Hemoglobin 31.4 pg (26-34); Mean Corpuscular Volume 95.5 fl (80-100); Mean Platelet Volume 9.4 fl (7.4-10.4); Monocytes Absolute Auto 1.2 K/mm3 (0.1-0.6); Monocytes Percent Auto 7.2 % (2.6-8.5); Neutrophils Absolute Auto 13.4 K/mm3 (1.3-6.7); Neutrophils Percent Auto 79.3 % (45.5-73.1); Platelet Count Result 328 k/mm3 (150-375); Red Blood Count 3.82 M/mm3 (4.6-6.20); Red Cell Distribution Width 13.9 % (11.5-14.5); White Blood Count 16.9 K/mm3 (4.5-10.0)
[2020-01-18 05:30] LABS: Blood Urea Nitrogen 26 mg/dL (9-20); Calcium 8.6 mg/dL (8.4-10.2); Carbon Dioxide 29 mmol/L (22-30); Chloride 112 mmol/L (98-107); Estimated CRCL calculation 62 ml/min; Estimated Glomerular Filt Rate > 60; Glucose 72 mg/dL (75-110); Potassium 3.5 mmol/L (3.4-5.0); Sodium 146 mmol/L (137-145)
[2020-01-18] MEDS: FAMOTIDINE 20 MG/2 ML VIAL IV PUSH ×2 (08:26→20:42)
[2020-01-18] MEDS: methylPREDNISolone SOD SUCC 40 MG VIAL IV PUSH (08:26)
[2020-01-18] MEDS: ENOXAPARIN 40 MG/0.4 ML SYRINGE SUB-Q (08:26)
[2020-01-18] MEDS: NICOTINE (*PBKC) 14 MG PATCH 1 PATCH TRANSDERM (08:27)
[2020-01-18] MEDS: THIAMINE HCL 200 MG/2 ML VIAL 100 MG IV PUSH (08:27)
[2020-01-18] MEDS: FUROSEMIDE INJ 40 MG/4 ML VIAL IV PUSH (09:31)
--- NOTE | 2020-01-18 09:44 | PC.NURSE ---
DR JOHNSON NOTIFIED OF PT NOT LEAVING TELE ON AND BEING COMBATIVE PRN ATIVAN GIVEN
--- NOTE | 2020-01-18 09:47 | PC.NURSE ---
UNABLE TO CHART 0800 TELE DUE TO PT PT TAKING IT OFF
--- NOTE | 2020-01-18 13:18 | PCPTNOTE ---
The PT treatment was attempted today, however patient was unable to follow directions or respond to questions. Patient resisted all therapeutic exercises. Will continue per Plan of Care frequency and duration.
--- NOTE | 2020-01-18 13:50 | PM.IMPN ---
Progress Note: A&P Assessment and Plan (1) Septic shock: Code(s): A41.9 - Sepsis, unspecified organism; R65.21 - Severe sepsis with septic shock Status: Acute Assessment and Plan: Patient with either septic shock versus hypovolemia. Lactic acid 5.4 but normallized. Patient responded to IV fluid boluses. BP better overall and renal function normal now. Finished Zosyn 01/16 D#10. . BCx NGTD. . Dopplers negative for DVT. ABG is consistent with hypoxia. CXR 01/12 clearing on R but persistant left infitrates. Probably PNA and CHF. COVID negatrive x2 here. BP okay and Cr okay. Lasix again 01/15 and last 2 days. CxR 01/16 still looks like chf but 02 sat better and no findings on PE (2) Alcoholism /alcohol abuse: Code(s): F10.20 - Alcohol dependence, uncomplicated Status: Acute Assessment and Plan: The patient quit drinking alcohol in 2017 prsumably but spoke with niece yesterday and she feels this is how he acts during withdrawal symptoms. CIWA ranging from 0-7 initially but up to 19 overnight. Pateint was having hallucinatins consistent with withdrawal symptoms . . Continue CIWA protocol. Continue Thiamine and Folate. Consider resuming some meds once he wakes up. CT brain 01/06 did show hygromas (8,9mm)per radiology but repeat CT brain 01/09 showing enlarging hygromas (12,15mm) but no shift. Continue to monitor clinically and repeat CT 01/11 no change . and repeat ordered again today with continued confusion and dificulty with speech (3) Leukocytosis: Code(s): D72.829 - Elevated white blood cell count, unspecified Status: Acute Assessment and Plan: WBC climbed to 21.6K on 01/07/20. Trending down initially but then back up to 26.8K on 01/08 felt related to steroids. Finished Zosyn for possible PNA (CT chest negative but may have been too dehydrated and may have aspirated too). No fevers . BCx NGTD. D/C zosyn 01/16. . as above D#10 WBC was trending down with slight bump 01/15 at 16k probably secondary to steroids repeat cxr 01/16 more consistent with CHF, IV lasix (4) COPD (chronic obstructive pulmonary disease): Code(s): J44.9 - Chronic obstructive pulmonary disease, unspecified Status: Acute Assessment and Plan: Patient still wheezing 01/11. He continues to smoke. He uses Breo and Incruse at home. . IV fluids stopped due to SOB and CXR 01/08 showing pulmonary edema vs PNA. Lasix given with good UOP.01/10 and 01/11 COVID negative so changed to nebs. started solumedrol because feel is more Pul bronchospasm 01/12 and much better with bronchospasm gone. taper steroids and d/c today 01/17. and repeat cxr 01/16 as above more chf, so more IV lasix (5) Hyponatremia: Code(s): E87.1 - Hypo-osmolality and hyponatremia Status: Acute Assessment and Plan: Na 126 on admission and has improved with rehydration. Krupa 13 with FENa on 0.3%. [place] low sodium related to dehydration from HCTZ and Lasix. TSH and cortisol normal. Na 145 this am and adding free h20 with D5W (6) T12 compression fracture: Qualifiers: Encounter type: initial encounter Qualified Code(s): S22.080A - Wedge compression fracture of T11-T12 vertebra, initial encounter for closed fracture Code(s): S22.080A - Wedge compression fracture of T11-T12 vertebra, initial encounter for closed fracture Status: Acute Assessment and Plan: Imaging showing an acute T12 compression fracture. Probably related to one of his many falls. Back brace in place. Patient states his back pain was better with the brace on. Continue therapy. Appreciate Ortho input (7) Elevated bilirubin: Code(s): R17 - Unspecified jaundice Status: Acute Assessment and Plan: TB 4.4 but dropped to 1.7 (with IB 1.0). Bili today is 2.0 and probably elevated due to multiple causes. RUQ US showing hepatic steatosis and cholelithiasis. Hepatitis panel negative.
--- NOTE | 2020-01-18 14:21 | PCNFU ---
Nutrition Follow-Up Complete: Inadequate oral intake related to inabiliity to safely swallow as evidenced by NPO x 4 days. Goal: Patient to meet estimated nutritional needs. Limited progress towards goal. Pt current nutrition is NPO x 5 days. Nutrition recommendation:Jevity 1.2 beginning at 20mL/hr and advancing by 10-15mL/hr every 4-6 hours, as tolerated, to goal of 70mL/hr x 22 hours/day for total of 1848kcal and 85g protein. Recommend 30mL water flush every 4 hours. Last recorded weight is 73.2 kg. Bowel Motility: last BM reported 01/14 Labs Reviewed: Na 146,BUN 26,Glu 72 Meds Noted:Thiamine,Pepsid,Lovenox Additional Notes: Patient remains NPO x 5 days. Patient has sitter today, agitated, not following commands or talking. CT brain ordered. Patient is at increased nutritional risk. Recommend starting enteral feedings by 7 day. Monitoring: Follow up every 3 days.
--- NOTE | 2020-01-18 14:22 | PCSTNOTE ---
The patient treatment was not able to be completed on 01/18/20 due to decreased responsiveness. Patient did not open eyes or attempt to communicate verbally or nonverbally with therapist. Will plan to continue treatment per plan of care.
[2020-01-18] MEDS: DEXTROSE 5% 1,000 ML 1,000 ML 50 ML IV CONT (16:29)
[2020-01-19] VITALS (16 sets, daily range): BP systolic 98–140; BP diastolic 70–81; PULSE 67–120; RESP 18–22; TEMP 36.1–37.1; O2SAT 90–100
[2020-01-19] MEDS: IPRATROPIUM BR 0.02% INH SOLN 0.5 MG/2.5 ML VIAL INHALATION ×4 (01:35→20:29)
[2020-01-19] MEDS: ALBUTEROL SULFATE NEB 2.5 MG/0.5 ML INH 5 MG INHALATION ×4 (01:35→20:29)
[2020-01-19 05:48] LABS: Basophils Percent Auto 0.2 % (0.2-1.2); Eosinophils Absolute Auto 0.5 K/mm3 (0-0.3); Eosinophils Percent Auto 2.4 % (0-4.4); Hematocrit 39.2 % (42.0-52.0); Immature Granulocyte Absolute 0.22 K/mm3 (0.00-0.031); Immature Granulocyte Percent A 1.1 % (0-0.5); Lymphocytes Absolute Auto 1.72 K/mm3 (0.9-3.2); Lymphocytes Percent Auto 8.5 % (18.3-44.2); Mean Corpuscular HGB Conc 33.2 g/dl (32-36); Mean Corpuscular Hemoglobin 31.6 pg (26-34); Mean Corpuscular Volume 95.1 fl (80-100); Mean Platelet Volume 9.5 fl (7.4-10.4); Monocytes Absolute Auto 1.2 K/mm3 (0.1-0.6); Monocytes Percent Auto 6.1 % (2.6-8.5); Neutrophils Absolute Auto 16.6 K/mm3 (1.3-6.7); Neutrophils Percent Auto 81.7 % (45.5-73.1); Platelet Count Result 337 k/mm3 (150-375); Red Blood Count 4.12 M/mm3 (4.6-6.20); Red Cell Distribution Width 13.9 % (11.5-14.5); White Blood Count 20.3 K/mm3 (4.5-10.0)
[2020-01-19 06:05] LABS: Alanine Aminotransferase 33 U/L (4-50); Albumin Level 3.2 g/dL (3.5-5.1); Alkaline Phosphatase 118 U/L (38-126); Aspartate Amino Transferase 31 U/L (17-59); Bilirubin,Total 1.6 mg/dL (0.2-1.3); Blood Urea Nitrogen 27 mg/dL (9-20); Calcium 8.6 mg/dL (8.4-10.2); Carbon Dioxide 28 mmol/L (22-30); Chloride 110 mmol/L (98-107); Estimated CRCL calculation 67 ml/min; Estimated Glomerular Filt Rate > 60; Glucose 108 mg/dL (75-110); Potassium 3.6 mmol/L (3.4-5.0); Sodium 143 mmol/L (137-145)
--- NOTE | 2020-01-19 08:20 | PC.NURSE ---
Pt to CT via hospital bed. Sitter with pt and transport.
[2020-01-19] MEDS: THIAMINE HCL 200 MG/2 ML VIAL 100 MG IV PUSH (09:14)
[2020-01-19] MEDS: FAMOTIDINE 20 MG/2 ML VIAL IV PUSH ×2 (09:15→20:18)
[2020-01-19] MEDS: NICOTINE (*PBKC) 14 MG PATCH 1 PATCH TRANSDERM (09:15)
[2020-01-19] MEDS: ENOXAPARIN 40 MG/0.4 ML SYRINGE SUB-Q (09:15)
--- NOTE | 2020-01-19 09:30 | PC.NURSE ---
Pt returned from CT via hospital bed.
[2020-01-19] MEDS: DEXTROSE 5% 1,000 ML 1,000 ML 50 ML IV CONT (13:28)
--- NOTE | 2020-01-19 13:49 | PM.IMPN ---
Progress Note: A&P Assessment and Plan (1) Encephalopathy: Code(s): G93.40 - Encephalopathy, unspecified Status: Acute Assessment and Plan: CT brain 01/06 did show hygromas (8,9mm)per radiology but repeat CT brain 01/09 showing enlarging hygromas (12,15mm) but no shift. Repeat CT 01/11 and again today showing no change. Patinet with continued difficulty talking and aspiration risk. Nutrition is an issue so NG tube placed. Talked with niece to provide update and inform her of wanting to perform MRI brain. After thinking it over, she does not want him to have a feeding tube; she voiced understanding of the risks and benefits of feeding tube. Will continue tube feedings for tonight and remove in the morning after speech therapy provides a diet that hopefully will minimize aspiration risk. Neuro consult. (2) Septic shock: Code(s): A41.9 - Sepsis, unspecified organism; R65.21 - Severe sepsis with septic shock Status: Acute Assessment and Plan: Patient with either septic shock versus hypovolemia. Lactic acid 5.4 but normalized. Patient responded to IV fluid boluses. BP better overall and renal function normal now. BCx NGTD. Dopplers negative for DVT. ABG is consistent with hypoxia. CXR 01/12 clearing on R but persistant left infiltrates. Probably PNA and CHF. Finished Zosyn 01/16 D#10. COVID negative x2 here. Receiving intermittent doses of Lasix. CXR 01/16 still looked like chf. (3) Alcoholism /alcohol abuse: Code(s): F10.20 - Alcohol dependence, uncomplicated Status: Acute Assessment and Plan: The patient quit drinking alcohol in 2018 prsumably but spoke with niece and she feels this is how he acts during withdrawal symptoms. CIWA was up to 19 one night. Pateint was having hallucinations consistent with withdrawal symptoms . Continue Thiamine. Continue Ativan as needed for agitation (4) Leukocytosis: Code(s): D72.829 - Elevated white blood cell count, unspecified Status: Acute Assessment and Plan: WBC climbed to 21.6K on 01/07/20. Trending down initially but then back up to 26.8K on 01/08 felt related to steroids. Finished Zosyn for possible PNA (CT chest negative but may have been too dehydrated and may have aspirated too). No fevers. BCx NGTD. D/C zosyn 01/16 D#10. WBC was trending down but began to climb past few days back up to 20K without clear source. Could still be related to steroids. Follow WBC (5) COPD (chronic obstructive pulmonary disease): Code(s): J44.9 - Chronic obstructive pulmonary disease, unspecified Status: Acute Assessment and Plan: Patient wheezing intermittently. He continues to smoke. He uses Breo and Incruse at home. IV fluids stopped due to SOB and CXR 01/08 showing pulmonary edema vs PNA. Lasix given with good UOP. COVID negative so changed to nebs. Started Solumedrol because feel is more bronchospasm 01/12 with improvement; taper steroids and d/c 01/17. Repeat CXR 01/16 more chf, so IV lasix. Wean O2 as tolerated. (6) Hyponatremia: Code(s): E87.1 - Hypo-osmolality and hyponatremia Status: Acute Assessment and Plan: Na 126 on admission and has improved with rehydration. Krupa 13 with FENa on 0.3%. [place] low sodium related to dehydration from HCTZ and Lasix. TSH and cortisol normal. Na 143 this am (7) T12 compression fracture: Qualifiers: Encounter type: initial encounter Qualified Code(s): S22.080A - Wedge compression fracture of T11-T12 vertebra, initial encounter for closed fracture Code(s): S22.080A - Wedge compression fracture of T11-T12 vertebra, initial encounter for closed fracture Status: Acute Assessment and Plan: Imaging showing an acute T12 compression fracture. Probably related to one of his many falls. Back brace used when up. Patient stated that his back pain was better with the brace on. Continue therapy. Appreciate Or
[2020-01-19] MEDS: BISACODYL 10 MG SUPPOSITORY RECTAL (14:34)
--- NOTE | 2020-01-19 15:36 | PCSTNOTE ---
Attempted ST, pt was too lethargic and unable to actively participate.
--- NOTE | 2020-01-19 16:13 | PCDIET ---
Nutrition Follow-Up Complete: Inadequate oral intake related to inability to safely swallow as evidenced by NPO x 4 days. Patient to meet estimated nutritional needs. Goal:Goal not met. Continue current goal. Pt current nutrition is NPO/Jevity 1.2 Nutrition recommendation: Agree Last recorded weight is 74.3 kg (Down from admit of 78.6kg) Bowel Motility:01/18 Labs Reviewed:Bilirubin 1.6, BUN 27, WBC 20.3, Albumin 3.2, Protein 6.0 Meds Noted:Lovenox, Dulcolax, Ativan, Thiamin Additional Notes: Pt family deciding on EN. NG in place. Pt day seven NPO. Discussed appropriate advancement rate for EN with MD if family decides. Recommend starting at 10ml/hr and slowly increasing 10ml q 6 hrs to goal of 70ml/hr. Recommend monitoring electrolytes for EN tolerance as pt is at risk for refeeding syndrome. Electrolytes stable today. At goal, EN over 22hrs will [id number], 85g protein,and 1242ml of free water. We will follow daily.
[2020-01-19] MEDS: LORAZEPAM INJ 2 MG/ML VIAL 1 MG IV PUSH (23:57)
[2020-01-20] VITALS (14 sets, daily range): BP systolic 100–121; BP diastolic 61–76; PULSE 62–106; RESP 18–22; TEMP 35.8–37.1; O2SAT 93–97
[2020-01-20] MEDS: IPRATROPIUM BR 0.02% INH SOLN 0.5 MG/2.5 ML VIAL INHALATION ×4 (02:34→20:12)
[2020-01-20] MEDS: ALBUTEROL SULFATE NEB 2.5 MG/0.5 ML INH 5 MG INHALATION ×4 (02:34→20:12)
[2020-01-20 05:50] LABS: Basophils Percent Auto 0.2 % (0.2-1.2); Eosinophils Absolute Auto 0.7 K/mm3 (0-0.3); Hematocrit 43.3 % (42.0-52.0); Hemoglobin 14.4 g/dL (14.0-18.0); Immature Granulocyte Absolute 0.22 K/mm3 (0.00-0.031); Lymphocytes Absolute Auto 1.53 K/mm3 (0.9-3.2); Lymphocytes Percent Auto 7.1 % (18.3-44.2); Mean Corpuscular HGB Conc 33.3 g/dl (32-36); Mean Corpuscular Hemoglobin 32.1 pg (26-34); Mean Corpuscular Volume 96.4 fl (80-100); Mean Platelet Volume 9.5 fl (7.4-10.4); Monocytes Absolute Auto 1.1 K/mm3 (0.1-0.6); Monocytes Percent Auto 5.1 % (2.6-8.5); Neutrophils Percent Auto 83.6 % (45.5-73.1); Platelet Count Result 331 k/mm3 (150-375); Red Blood Count 4.49 M/mm3 (4.6-6.20); Red Cell Distribution Width 14.1 % (11.5-14.5); White Blood Count 21.5 K/mm3 (4.5-10.0)
[2020-01-20 06:11] LABS: Alanine Aminotransferase 27 U/L (4-50); Albumin Level 3.1 g/dL (3.5-5.1); Alkaline Phosphatase 125 U/L (38-126); Aspartate Amino Transferase 25 U/L (17-59); Bilirubin,Total 1.5 mg/dL (0.2-1.3); Blood Urea Nitrogen 22 mg/dL (9-20); CRP 2.6 mg/dL (<1.0); Calcium 8.4 mg/dL (8.4-10.2); Carbon Dioxide 32 mmol/L (22-30); Chloride 107 mmol/L (98-107); Estimated CRCL calculation 75 ml/min; Estimated Glomerular Filt Rate > 60; Glucose 120 mg/dL (75-110); Phosphorus 3.5 mg/dL (2.5-4.5); Potassium 2.6 mmol/L (3.4-5.0); Sodium 142 mmol/L (137-145)
[2020-01-20] MEDS: ENOXAPARIN 40 MG/0.4 ML SYRINGE SUB-Q (08:48)
[2020-01-20] MEDS: FAMOTIDINE 20 MG/2 ML VIAL IV PUSH ×2 (08:48→20:05)
[2020-01-20] MEDS: THIAMINE HCL 200 MG/2 ML VIAL 100 MG IV PUSH (08:48)
--- NOTE | 2020-01-20 11:44 | PCSTNOTE ---
The patient treatment was not able to be completed on 01/20/20 due to decreased ability to follow directions. Patient was awake and opened mouth one time on request but did not complete other exercises/directions. Will plan to continue treatment per plan of care.
--- NOTE | 2020-01-20 12:12 | PM.IMPN ---
Progress Note: A&P Assessment and Plan (1) Encephalopathy: Code(s): G93.40 - Encephalopathy, unspecified Status: Acute Assessment and Plan: CT brain 01/06 did show hygromas (8,9mm)per radiology but repeat CT brain 01/09 showing enlarging hygromas (12,15mm) but no shift. Repeat CT 01/11 and again 01/18 showing no change. Patinet with continued difficulty talking and aspiration risk. Nutrition is an issue so NG tube placed. Talked with niece to provide update and inform her of wanting to perform MRI brain. After thinking it over, she does not want him to have a feeding tube; she voiced understanding of the risks and benefits of feeding tube. We are awaiting speech therapy input on diet. Contineu NGT feeding for now. MRI brain today. MRI showing T-shaped pontine signal abnormality most likely acute infarction and chronic moderate-sized subdural hygromas. Start rectal ASA (2) Septic shock: Code(s): A41.9 - Sepsis, unspecified organism; R65.21 - Severe sepsis with septic shock Status: Acute Assessment and Plan: Patient with either septic shock versus hypovolemia. Lactic acid 5.4 but normalized. Patient responded to IV fluid boluses. BP better overall and renal function normal now. BCx NGTD. Dopplers negative for DVT. ABG is consistent with hypoxia. CXR 01/12 clearing on R but persistant left infiltrates. Probably PNA and CHF. Finished Zosyn 01/16 D#10. COVID negative x2 here. Receiving intermittent doses of Lasix. Patietn more obtunded so ABG obtained but 7.54/27/109 on RA. CXR showing persistent but improved airspace opacities, consistent with resolving pneumonia versus pulmonary edema. WBC still elevated but no fevers or diarrhea. Check UA (3) Alcoholism /alcohol abuse: Code(s): F10.20 - Alcohol dependence, uncomplicated Status: Acute Assessment and Plan: The patient quit drinking alcohol in 2018 prsumably but spoke with niece and she feels this is how he acts during withdrawal symptoms. CIWA was up to 19 one night. Pateint was having hallucinations consistent with withdrawal symptoms . Continue Thiamine. Continue Ativan as needed for agitation (4) Leukocytosis: Code(s): D72.829 - Elevated white blood cell count, unspecified Status: Acute Assessment and Plan: WBC climbed to 21.6K on 01/07/20. Trending down initially but then back up to 26.8K on 01/08 felt related to steroids. Finished Zosyn for possible PNA (CT chest negative but may have been too dehydrated and may have aspirated too). No fevers. BCx NGTD. D/C zosyn 01/16 D#10. WBC was trending down but began to climb past few days back up to 21K without clear source. Could still be related to steroids. Follow WBC. CXR showing no acute changes. Check UA (5) COPD (chronic obstructive pulmonary disease): Code(s): J44.9 - Chronic obstructive pulmonary disease, unspecified Status: Acute Assessment and Plan: Patient wheezing intermittently. He continues to smoke. He uses Breo and Incruse at home. IV fluids stopped due to SOB and CXR 01/08 showing pulmonary edema vs PNA. Lasix given with good UOP. COVID negative so changed to nebs. Started Solumedrol because feel is more bronchospasm 01/12 with improvement; taper steroids and d/c 01/17. Repeat CXR 01/16 more chf, so IV lasix. Wean O2 as tolerated. (6) Hyponatremia: Code(s): E87.1 - Hypo-osmolality and hyponatremia Status: Acute Assessment and Plan: Na 126 on admission and has improved with rehydration. Krupa 13 with FENa on 0.3%. [place] low sodium related to dehydration from HCTZ and Lasix. TSH and cortisol normal. Na remaining normal now (7) T12 compression fracture: Qualifiers: Encounter type: initial encounter Qualified Code(s): S22.080A - Wedge compression fracture of T11-T12 vertebra, initial encounter for closed fracture Code(s): S22.080A - Wedge compression fracture
[2020-01-20 12:16] LABS: Glucose Point of Care 143 (65-105)
[2020-01-20 12:30] LABS: Alveolar/Arterial O2 Gradient 7.3 mmHg; Base Excess ABG 1.9 mEq/l (+/-2.0); Fractional Inspired Oxygen 21 %; Oxygen Content ABG 21.1 %vol (16.0-22.0); Oxygen Saturation ABG 98.5 % (95.0-100.0); Oxyhemoglobin 96.5 % THb (90.0-100.0); PCO2 ABG 27.3 mmHg (35.0-45.0); PO2 ABG 109.7 mmHg (80.0-100.0); PO2 FiO2 Ratio Arterial Blood 5.22 %; Total Hemoglobin 15.5 g/dL (12.0-18.0)
[2020-01-20 12:31] LABS: Device ROOM AIR; Modified Allen's Test Pass; Site Drawn RIGHT RADIAL; pH ABG 7.543 (7.350-7.450)
[2020-01-20 12:43] LABS: Lactic Acid Reflex 2.1 mmol/L (0.7-2.1)
--- NOTE | 2020-01-20 12:48 | PCNFU ---
Nutrition Follow-Up Complete: Inadequate oral intake related to inability to safely swallow as evidenced by NPO x 4 days. goal: Patient to meet estimated nutritional needs. progressing towards goal. We will continue current goal. Pt current nutrition is Jevity 1.2 at 30 ml/hr goal 70 ml/hr. Nutrition recommendation: Agree Last recorded weight is 74.9 kg. Bowel Motility:+Bm reported 01/19 Labs Reviewed:BUN 22, Glu 120,Alb 3.1,K 2.6 Meds Noted:Thiamine,Lovenox,Pepsid Additional Notes: Tube feedings started yesterday with plans to remove today after speech therapy provides a diet that hopefully will minimize aspiration risk. Speech Therapy was unable to complete treatment due to decreased ability to follow directions. If family wishes to continue tube feedings recommend Jevity 1.2 to goal rate at 70 ml/hr. Tube feedings over 22hrs will provide 1848kcals, 85g protein,and 1242ml of free water. Follow up in Saturday/Saturday.
[2020-01-20] MEDS: POTASSIUM CHLORIDE 20 MEQ PACKET (FOR LIQUID) 40 MEQ PO ×2 (13:11→17:31)
--- NOTE | 2020-01-20 15:01 | PC.NURSE ---
Pt to radiology, tube feeding on hold, NG clamped.
[2020-01-20 15:26] LABS: Reflex Lactic Acid Yes or No Add Lactic
[2020-01-20 16:37] LABS: Lactic Acid 2.6 mmol/L (0.7-2.1)
--- NOTE | 2020-01-20 17:03 | CONS_ITS ---
DATE OF CONSULTATION: 01/20/2020 HISTORY OF PRESENT ILLNESS: A 70-year-old was admitted to [facility] through the emergency room on 01/07/2020 with a past medical history of: 1. CVA. 2. Hypertension. 3. COPD. 4. Recent fall. On transfer from the [facility] [place] with the information that he was walking out to pay his lawn care provider when he fell. He was unable to get up. When he arrived in the [facility] Emergency room, he was hypotensive with blood pressure of 81/41. Evaluation revealed him to have leukocytosis with profound hypokalemia. He received a fluid with improvement in the blood pressure, but he reported that he had been feeling lightheaded whenever he stood for the last couple of weeks and has had several falls, multiple bruises with multiple stages of healing noted on the examination. He gave no history of associated difficulties in breathing, chest pain though he was noted to be wheezing. He wanted Bloom catheter to be removed. He received electrolyte supplements in the emergency room. EKG revealed him to have septal-lateral myocardial infarction with QT prolongation and also atrial fibrillation, which was new according to the information. He was transferred here for the ongoing care with past historyof: 1. Alcoholism. 2. Coronary artery disease. 3. COPD. 4. Hypertension. 5. Heart valve vegetation including mitral and aortic valve documented by [facility] at [facility] and previous stroke involving the bilateral fabi. Additionally, he has undergone CABG, carrying the full code status. 53 years of smoking. Current everyday smoker, former alcohol drinker. MEDICATIONS: At the time of admission include: 1. Wellbutrin 150 mg twice a day. 2. Fluoxetine 40 mg daily. 3. Fluticasone nasal spray. 4. Furosemide 40 mg daily. 5. Hydrochlorothiazide 25 mg daily. 6. KCl 40 mEq daily. 7. Tadalafil 20 mg daily. 8. Umeclidinium 1 inhalation daily. ALLERGIES: HE IS NOT ALLERGIC TO ANY MEDICATION. PHYSICAL EXAMINATION: GENERAL: Evaluation revealed him to be in no obvious acute distress. HEAD: Normocephalic with bruises and abrasions. NECK: Supple with no cervical bruits. No thyromegaly. No lymphadenopathy. HEART: Regular with murmur. LUNGS: Rhonchi and crepitation. ABDOMEN: Soft. NEUROLOGICAL: Awake, alert. His speech is slow. Cranial nerve examination revealed him to have no definite deficit. Examination reveal him to be weak with hyperreflexia and plantar responses upgoing. Evaluation revealed acute T12 compression fracture. A 14 mm left kidney mass, possibly hemorrhagic cyst-like less likely solid neoplasm. CT of the thoracic spine, acute T12 compression fracture. Mild thoracic spondylosis. CT of the brain, nonspecific white matter disease with chronic small-vessel ischemic disease. CT of the cervical spine. No fracture or dislocation. Mild cervical spondylosis. The patient treated for septic shock. Acute renal failure with electrolyte imbalance and also elevated bilirubin. Since initial admission, has had the Critical Care consultation, orthopedic consultation with Dr. Constantine Peacock, mainly for the T12 compression fracture for which suggestion was made to further follow up with serial x-rays. The patient has also been seen by the urologist and most recently being followed by Dr. Alo Mejia for the encephalopathy. He had repeat CT scan done on January 18, patient documented bilateral subdural hygromas involving the bilateral frontal, temporal and parietal lobes about 13 mm in the maximal thickness on the right and 14 mm on the left. No hemorrhage. Ventricles are of normal and symmetrical size and so as the basal cisterns. Neuro consultation has been obtained for that particular reason by Dr. Alo Mejia. Examina
[2020-01-20] MEDS: NICOTINE (*PBKC) 14 MG PATCH 1 PATCH TRANSDERM (17:30)
[2020-01-20] MEDS: LORAZEPAM INJ 2 MG/ML VIAL 1 MG IV PUSH (17:36)
[2020-01-20] MEDS: ASPIRIN 300 MG SUPPOSITORY RECTAL (21:51)
[2020-01-21] VITALS (15 sets, daily range): BP systolic 102–142; BP diastolic 64–94; PULSE 60–100; RESP 18–22; TEMP 36.1–37.1; O2SAT 83–100
[2020-01-21] MEDS: LORAZEPAM INJ 2 MG/ML VIAL 1 MG IV PUSH ×2 (00:09→06:20)
[2020-01-21 01:31] LABS: Potassium 4.4 mmol/L (3.4-5.0)
[2020-01-21 01:34] LABS: Lactic Acid Reflex 3.4 mmol/L (0.7-2.1)
[2020-01-21] MEDS: ALBUTEROL SULFATE NEB 2.5 MG/0.5 ML INH 5 MG INHALATION ×4 (02:08→21:20)
[2020-01-21] MEDS: IPRATROPIUM BR 0.02% INH SOLN 0.5 MG/2.5 ML VIAL INHALATION ×4 (02:08→21:20)
[2020-01-21 02:54] LABS: Add Urine Microscopic? YES; Appearance Urine Clear (Clear); Bacteria Urine Trace /hpf; Bilirubin Urine 1+ (Negative); Blood Urine 1+ (Negative); Color Urine Amber (Yellow); Glucose Urine UA Negative (Negative); Ketones Urine Negative (Negative); Leukocyte Esterase Ur Negative LEU/UL (Negative); Mucus Urine Few /lpf; Nitrate Urine Negative (Negative); Protein Urine 2+ mg/dL (Negative); Specific Grav Ur 1.025 (1.001-1.035); Squamous Epithelial Cell Urine Rare /hpf (Few)
[2020-01-21 04:19] LABS: Reflex Lactic Acid Yes or No Add Lactic
[2020-01-21 05:51] LABS: Basophils Absolute Auto 0.1 K/mm3 (0.0-0.1); Basophils Percent Auto 0.3 % (0.2-1.2); Eosinophils Absolute Auto 0.8 K/mm3 (0-0.3); Eosinophils Percent Auto 4.2 % (0-4.4); Hematocrit 39.9 % (42.0-52.0); Hemoglobin 13.2 g/dL (14.0-18.0); Immature Granulocyte Absolute 0.29 K/mm3 (0.00-0.031); Immature Granulocyte Percent A 1.6 % (0-0.5); Lymphocytes Absolute Auto 1.92 K/mm3 (0.9-3.2); Lymphocytes Percent Auto 10.4 % (18.3-44.2); Mean Corpuscular HGB Conc 33.1 g/dl (32-36); Mean Corpuscular Hemoglobin 31.8 pg (26-34); Mean Corpuscular Volume 96.1 fl (80-100); Mean Platelet Volume 9.5 fl (7.4-10.4); Monocytes Absolute Auto 1.4 K/mm3 (0.1-0.6); Monocytes Percent Auto 7.3 % (2.6-8.5); Neutrophils Absolute Auto 14.2 K/mm3 (1.3-6.7); Neutrophils Percent Auto 76.2 % (45.5-73.1); Platelet Count Result 322 k/mm3 (150-375); Red Blood Count 4.15 M/mm3 (4.6-6.20); Red Cell Distribution Width 14.3 % (11.5-14.5); White Blood Count 18.5 K/mm3 (4.5-10.0)
[2020-01-21 06:06] LABS: Lactic Acid 2.6 mmol/L (0.7-2.1)
[2020-01-21 06:12] LABS: Blood Urea Nitrogen 21 mg/dL (9-20); CRP 3.1 mg/dL (<1.0); Calcium 8.7 mg/dL (8.4-10.2); Carbon Dioxide 28 mmol/L (22-30); Chloride 110 mmol/L (98-107); Estimated CRCL calculation 75 ml/min; Estimated Glomerular Filt Rate > 60; Glucose 143 mg/dL (75-110); Potassium 4.1 mmol/L (3.4-5.0); Sodium 142 mmol/L (137-145)
[2020-01-21] MEDS: DEXTROSE 5% 1,000 ML 1,000 ML 100 ML IV CONT (06:21)
[2020-01-21] MEDS: FAMOTIDINE 20 MG/2 ML VIAL IV PUSH ×2 (09:00→19:39)
[2020-01-21] MEDS: ASPIRIN 300 MG SUPPOSITORY RECTAL (09:00)
[2020-01-21] MEDS: ENOXAPARIN 40 MG/0.4 ML SYRINGE SUB-Q (09:00)
[2020-01-21] MEDS: THIAMINE HCL 200 MG/2 ML VIAL 100 MG IV PUSH (09:00)
[2020-01-21] MEDS: BISACODYL 10 MG SUPPOSITORY RECTAL (09:07)
[2020-01-21] MEDS: NICOTINE (*PBKC) 14 MG PATCH 1 PATCH TRANSDERM (09:47)
--- NOTE | 2020-01-21 12:59 | PCOTNOTE ---
Attempted to see patient this pm, however pt was sleeping upon entering. Unable to arouse. Per sitter, patient has been sleeping all day and has only opened his eyes on occasion.
--- NOTE | 2020-01-21 14:11 | PCSTNOTE ---
The patient treatment was not able to be completed on 01/21/20 due to patient extensive lethargy. Discharge Speech Therapy upon agreement with physician. Physician notified of expected discharge and awaiting phyisican notification of agreement.
--- NOTE | 2020-01-21 14:48 | PM.IMPN ---
Progress Note: A&P Assessment and Plan (1) Encephalopathy: Code(s): G93.40 - Encephalopathy, unspecified Status: Acute Assessment and Plan: CT brain 01/06 did show hygromas (8,9mm)per radiology but repeat CT brain 01/09 showing enlarging hygromas (12,15mm) but no shift. Repeat CT 01/11 and again 01/18 showing no change. Patinet with continued difficulty talking and aspiration risk. Nutrition is an issue so NG tube placed. Talked with martha to provide update and inform her of wanting to perform MRI brain. After thinking it over, she does not want him to have a feeding tube; she voiced understanding of the risks and benefits of feeding tube. We are awaiting speech therapy input on diet but patient not alert enough to participate. Contineu NGT feeding for now. Discussed with martha about hospice. She will be here tomorrow to see the patient before she makes a decison. (2) CVA (cerebral vascular accident): Code(s): I63.9 - Cerebral infarction, unspecified Status: Acute Assessment and Plan: MRI brain showing T-shaped pontine signal abnormality most likely acute infarction and chronic moderate-sized subdural hygromas. Niece states patient was talking normally on 01/16/20 but had neurologic change the next day. As above (3) Septic shock: Code(s): A41.9 - Sepsis, unspecified organism; R65.21 - Severe sepsis with septic shock Status: Acute Assessment and Plan: Patient with either septic shock versus hypovolemia. Lactic acid 5.4 but normalized. Patient responded to IV fluid boluses. BP better overall and renal function normal now. BCx NGTD. Dopplers negative for DVT. ABG is consistent with hypoxia. CXR 01/12 clearing on R but persistant left infiltrates. Probably PNA and CHF. Finished Zosyn 01/16 D#10. COVID negative x2 here. Receiving intermittent doses of Lasix. Patietn more obtunded so ABG obtained but 7.54/27/109 on RA. CXR showing persistent but improved airspace opacities, consistent with resolving pneumonia versus pulmonary edema. WBC still elevated but now trending down. (4) Alcoholism /alcohol abuse: Code(s): F10.20 - Alcohol dependence, uncomplicated Status: Acute Assessment and Plan: The patient quit drinking alcohol in 2018 presumably but spoke with niece and she feels this is how he acts during withdrawal symptoms. CIWA was up to 19 one night. Pateint was having hallucinations consistent with withdrawal symptoms . Continue Thiamine. Continue Ativan as needed for agitation (5) Leukocytosis: Code(s): D72.829 - Elevated white blood cell count, unspecified Status: Acute Assessment and Plan: WBC climbed to 21.6K on 01/07/20. Trending down initially but then back up to 26.8K on 01/08 felt related to steroids. Finished Zosyn for possible PNA (CT chest negative but may have been too dehydrated and may have aspirated too). No fevers. BCx NGTD. D/C zosyn 01/16 D#10. WBC was trending down but began to climb past few days back up to 21K without clear source. Could still be related to steroids. UA noted but did not trigger a UCx. WBC slowly trending down on no abx. Follow WBC. (6) COPD (chronic obstructive pulmonary disease): Code(s): J44.9 - Chronic obstructive pulmonary disease, unspecified Status: Acute Assessment and Plan: Patient wheezing intermittently. He continues to smoke. He uses Breo and Incruse at home. IV fluids stopped due to SOB and CXR 01/08 showing pulmonary edema vs PNA. Lasix given with good UOP. COVID negative so changed to nebs. Started Solumedrol because feel is more bronchospasm 01/12 with improvement; taper steroids and d/c 01/17. Repeat CXR 01/16 more chf, so IV lasix. Wean O2 as tolerated. (7) Hyponatremia: Code(s): E87.1 - Hypo-osmolality and hyponatremia Status: Acute Assessment and Plan: Na 126 on admission and has improved with rehydration. Krupa 13 wi
[2020-01-22] VITALS (8 sets, daily range): BP systolic 57–125; BP diastolic 46–95; PULSE 68–117; RESP 16–48; TEMP 36.3–36.9; O2SAT 84–97
[2020-01-22] MEDS: LORAZEPAM INJ 2 MG/ML VIAL 1 MG IV PUSH (01:49)
[2020-01-22] MEDS: IPRATROPIUM BR 0.02% INH SOLN 0.5 MG/2.5 ML VIAL INHALATION ×2 (02:05→07:40)
[2020-01-22] MEDS: ALBUTEROL SULFATE NEB 2.5 MG/0.5 ML INH 5 MG INHALATION ×2 (02:05→07:40)
--- NOTE | 2020-01-22 07:53 | PCRCNOTE ---
Patient has increased O2 demand. Found this morning on 40% venti mask (12L) with O2 sat in mid-80s. Switched to NRB mask at 15L. Sats increased to low 90s. Patient grunting and breathing in 40s. Nurse is aware and speaking with doctor. Patient unable to tolerate being off NRB to do nebulizer treatment and unable to perform breaths for DPI & MDI. I oral suctioned what looked to be vomit and informed the RN. Patient is difficult to oral suction as he clamps down as soon as you begin suctioning. -Donita Townsend, TOE TRIMMER
--- NOTE | 2020-01-22 08:08 | PC.NURSE ---
Spoke with Daniel's niece Chani and let her know that pt has not been doing well with breathing and has had to have oxygen given and has had further increasing demand of his breathing. Suctioned him multiple times during night and had vomited. Suspected to have aspirated. Dr. Agrawal also had spoke with the niece. He explained to her that at his work of breathing continued that we would have to intubate at this point. She understood and asked for phone call to be transferred into room so she could speak to him. Transferred phone into [facility] waiting in room with phone. Niece allowed oxygen to be given.
[2020-01-22] MEDS: MORPHINE SULFATE 4 MG/ML INJ IV PUSH ×2 (08:10→10:51)
--- NOTE | 2020-01-22 10:27 | PCSTNOTE ---
Pt unable to participate and nsg indicated pt will going on hospice today.
--- NOTE | 2020-01-22 11:37 | PC.NURSE ---
In to patient's bedside to administer morphine drip and found patient is no longer breathing or heart sounds noted upon auscultation. Notified charge nurse Cindy Hyde to assess patient at bedside. Dr. Mejia and Chani thomas notified of patient's passing via telephone.
--- NOTE | 2020-01-22 11:44 | P.DN_ITS ---
Discharge Sum: Prov Provider Primary care physician: Sammy Nails, MD Admitting provider: Cherise Patterson DO Consults: 01/07/20 Consult to Physician Routine Comment: Consulting Provider: Jelani Ramirez call or contact centre manager/MD group to consult: Dr. Ramirez Reason for consultation: Shock uncertain source Has provider been notified: Yes 01/10/20 15:48 Consult to Physician Routine Comment: Consulting Provider: Constantine Peacock call or contact centre manager/MD group to consult: ortho Reason for consultation: T12 fracture Has provider been notified: Yes 01/13/20 Consult to Physician Routine Comment: perez trauma with bleeding Consulting Provider: Garrett Yusuf call or contact centre manager/MD group to consult: Parres Reason for consultation: perez trauma with bleeding Has provider been notified: Yes 01/19/20 13:56 Consult to Physician Routine Comment: Spoke with Dr Henry @ 1433 ([facility]) Consulting Provider: Antony Henry call or contact centre manager/MD group to consult: neuro Reason for consultation: altered mental status Has provider been notified: Yes Discharge Sum: Diag Contributing Factors (1) Encephalopathy: (2) Septic shock: (3) Alcoholism /alcohol abuse: (4) Leukocytosis: (5) COPD (chronic obstructive pulmonary disease): (6) Hyponatremia: (7) T12 compression fracture: (8) Elevated bilirubin: (9) Suspected 2019 novel coronavirus infection: (10) History of CVA (cerebrovascular accident): (11) Falls frequently: (12) Tobacco abuse: (13) Renal mass: Discharge Sum: Summary Date and Time Date of admission: 01/07/20 21:55 Date of : 01/22/20 Summary Details: 70yo male here for a fall and found to have profound electolyte abnormalities and HoTN. It was felt patient had septic shock from pneumonia. He was tested for COVID which was negative. He completed a course of IV antibiotics. Develop alcohol withdrawal with hallucinations. His electrolytes were replaced. He was found to have a T12 fracture. We repeated his CT of the brain because of mental status changes. This showed worsening hygromas but no shift. We ultimately were able to get an MRI after he was cleared from having any shrapnel. MRI of the brain showed a pontine CVA. Patient became aphasic and dysphagic related to the stroke. Multiple specialists were involved his care. Family did not want a feeding tube. Overnight, patient's respiratory status worsened. It was felt he probably aspirated. Family was called and they wished him to be kept comfortable. His respiratory rate was in the 40s and morphine was given. Patient on the morning of January 21. Additional Data Family: contacted Attending physician: Alo Mejia MD Was code activated?: No Advance directives: Yes
--- NOTE | 2020-01-22 12:45 | PC.NURSE ---
Patient to [facility] via stretcher. Orrin from [place], [place] to transport patient to home.
== END 2020-01-22 11:37 | disposition expired | DRG 853 ==
LOC: ANHICU 01-08 18:02 → ANHIMU 01-09 18:38 → ANH2MED 01-15 12:19
PROVIDERS: Family Medicine; Internal Medicine; Urology; Admitting Provider Internal Medicine; PCP Family Medicine; Visit Provider Internal Medicine
PROC: 0TCB8ZZ Extirpation of Matter from Bladder, Via Natural or Artificial Opening Endoscopic (ICD-10-PCS; CPT 52001; principal; 2020-01-14 11:00)
DX: A41.9 Sepsis, unspecified organism (principal); R65.21 Severe sepsis with septic shock; J18.9 Pneumonia, unspecified organism; S22.080A Wedge compression fracture of T11-T12 vertebra, initial encounter for closed fracture; N17.9 Acute kidney failure, unspecified; J44.0 Chronic obstructive pulmonary disease with (acute) lower respiratory infection; I13.0 Hypertensive heart and chronic kidney disease with heart failure and stage 1 through stage 4 chronic kidney disease, or unspecified chronic kidney disease; I50.32 Chronic diastolic (congestive) heart failure; E87.1 Hypo-osmolality and hyponatremia; R17 Unspecified jaundice; F10.239 Alcohol dependence with withdrawal, unspecified; S37.29XA Other injury of bladder, initial encounter; Z20.828 Contact with and (suspected) exposure to other viral communicable diseases; R31.0 Gross hematuria; X58.XXXA Exposure to other specified factors, initial encounter; N40.1 Benign prostatic hyperplasia with lower urinary tract symptoms; N18.9 Chronic kidney disease, unspecified; E87.6 Hypokalemia; T50.1X5A Adverse effect of loop [high-ceiling] diuretics, initial encounter; T50.2X5A Adverse effect of carbonic-anhydrase inhibitors, benzothiadiazides and other diuretics, initial encounter; E86.0 Dehydration; F43.12 Post-traumatic stress disorder, chronic; I25.10 Atherosclerotic heart disease of native coronary artery without angina pectoris; F10.20 Alcohol dependence, uncomplicated; F17.210 Nicotine dependence, cigarettes, uncomplicated; T17.990A Other foreign object in respiratory tract, part unspecified in causing asphyxiation, initial encounter; N28.1 Cyst of kidney, acquired; D72.829 Elevated white blood cell count, unspecified; T38.0X5A Adverse effect of glucocorticoids and synthetic analogues, initial encounter; T42.4X5A Adverse effect of benzodiazepines, initial encounter; N28.89 Other specified disorders of kidney and ureter; R29.6 Repeated falls; I44.0 Atrioventricular block, first degree; Z95.1 Presence of aortocoronary bypass graft; I69.398 Other sequelae of cerebral infarction; R26.9 Unspecified abnormalities of gait and mobility; I69.319 Unspecified symptoms and signs involving cognitive functions following cerebral infarction; Z91.14 Patient's other noncompliance with medication regimen; W19.XXXA Unspecified fall, initial encounter; I69.320 Aphasia following cerebral infarction; I69.391 Dysphagia following cerebral infarction; R13.10 Dysphagia, unspecified
CPT/HCPCS: 36415; 36600; 70450; 70551; 71045; 73060; 73090; 73552; 73590; 74018; 74178; 76705; 76775; 80048; 80053; 80069; 80074; 80076; 80307; 81001; 82375; 82533; 82550; 82570; 82728; 82805; 83050; 83605; 83615; 83735; 84100; 84132; 84300; 84443; 84484; 85025; 85027; 85055; 85380; 86140; 87635; 92507; 92523; 92526; 92610; 92611; 93005; 93306; 93970; 94640; 97110; 97161; 97165; 97530; 97535; A9270; C9803; J1200; J1630; J1650; J1940; J2060; J2270; J2543; J2704; J2920; J2930; J3411; J3475; J3480; J7030; J7040; J7050; J7070; J7120; Q9967; U0003